=== PATIENT | male | born 1935 | race Caucasian/White ===

== ENCOUNTER 2016-12-23 12:37 | Inpatient (IN) | payer MEDICARE, OTHER ==
[~2016-12-23] VITALS: Ht 188 cm; Wt 149.6 kg
[~2016-12-23 12:37] MED LIST: ALLO300T PO; AMIO200T42 PO; AMOX1TAB61 PO; AMOX1TAB64 PO; APIX5TAB PO; ASPI-496 PO; ATOR80TA PO; ATOR80TA75 PO; CA C1TAB39 PO; CARV12.52 PO; CARV3.122 PO; CARV6.252 PO; CHOL40002 PO; CIPR500T8 PO; CLIN300C3 PO; FLUO20CA19 PO; FURO20TA3 PO; FURO40TA6 PO; INSU100C5 SQ-INSULIN; INSU100I13 SQ; INSU100I18 SQ; INSU100I18 SQ-INSULIN; INSU100I28 SQ-INSULIN; INSU100I29 SQ-INSULIN; INSU100V5 SQ-INSULIN; INSU100V8 SQ; IRBE150T49 PO; LEVO200T23 PO; LEVO200T5 PO; LOSA50TA2 PO; MAGNESIUM PO; MULT1TAB13 PO; MUPI22OI2 TP; NOVALOG SQ; OMEG1CAP12 PO; OMEP-110 PO; OMEP20TA62 PO; PREG100C PO; PREG50CA PO; REPA2TAB PO; REPA2TAB7 PO; RISP0.5T18 PO; SENN1TAB7 PO; SULF1TAB23 PO; SULF1TAB24 PO; SULF1TAB3 PO; TRIA15CR3 TP; VENL37.58 PO; VITA150T PO; VITAMIN C PO; WARF5TAB PO; WARF7.5T PO; ZINC PO
[2016-12-23] MEDS ORDERED: REPA2TAB PO (13:00)
[2016-12-23] MEDS ORDERED: APIX5TAB PO (13:00)
[2016-12-23] MEDS ORDERED: CHOL5000 PO (13:00)
[2016-12-23] MEDS ORDERED: ATOR40TA PO (13:00)
[2016-12-23] MEDS ORDERED: TEMA7.5C PO (13:00)
[2016-12-23] MEDS ORDERED: MULT-717 PO (13:00)
[2016-12-23] MEDS ORDERED: PREG200C PO (13:00)
[2016-12-23] MEDS ORDERED: PROP10TA PO (13:00)
[2016-12-23] MEDS ORDERED: [UNRECOGNIZED DRUG - CODE] PO (13:00)
[2016-12-23] MEDS ORDERED: SODIUM CHLORIDE FLUSH 10ML SYR IVF ONE (13:30)
[2016-12-23 13:59] LABS: BLOOD UREA NITROGEN 14 mg/dL (7-18)
[2016-12-23 14:19] LABS: ASPARTATE AMINO TRANSFERASE 22 U/L (15-37)
[2016-12-23] MEDS ORDERED: SODIUM CHLORIDE FLUSH 10ML SYR IVF PRN (15:00)
[2016-12-23] MEDS ORDERED: DEXTROSE 4 GM TAB.CHEW PO PRN (16:00)
[2016-12-23] MEDS ORDERED: ACETAMINOPHEN 325 MG TABLET PO PRN (16:00)
[2016-12-23] MEDS ORDERED: DOCUSATE 100 MG CAPSULE PO PRN (16:00)
[2016-12-23] MEDS ORDERED: DEXTROSE 50%, 50ML SYRINGE IVPush PRN (16:00)
[2016-12-23] MEDS ORDERED: ENALAPRILAT 1.25 MG/ML, 2ML IVPush PRN (16:00)
[2016-12-23] MEDS ORDERED: POLYETHYLENE GLYCOL 17 GM PACKET PO PRN (16:00)
[2016-12-23] MEDS ORDERED: BISACODYL 10 MG SUPP PR PRN (16:00)
[2016-12-23] MEDS ORDERED: NITROGLYCERIN 0.4 MG BOTTLE (25 TABS) SL PRN (16:00)
[2016-12-23] MEDS ORDERED: NITROGLYCERIN 0.4 MG/SPRAY SL PRN (16:00)
[2016-12-23] MEDS: INSULIN REGULAR 100 UNITS/ML, 3ML VIAL SQ-INSULIN SCH ×2 (16:00→21:00)
[2016-12-23] MEDS ORDERED: GLUCAGON 1 MG IM PRN (16:00)
[2016-12-23] MEDS: PROPRANOLOL 10 MG TABLET PO SCH ×2 (16:00→21:34)
[2016-12-23] MEDS ORDERED: ONDANSETRON 2MG/ML, 2ML IVP PRN (16:00)
[2016-12-23] MEDS ORDERED: ONDANSETRON ODT 4 MG PO PRN (16:00)
[2016-12-23] MEDS: INSULIN DETEMIR 100 UNITS/ML, PEN SQ-INSULIN SCH (17:00)
[2016-12-23 20:12] LABS: IS PT STATUS REG ER OR PRE ER? NO
[2016-12-23] MEDS ORDERED: ZINC 50 MG PO SCH (21:00)
[2016-12-23] MEDS ORDERED: CARVEDILOL 6.25 MG TABLET PO SCH ×2 (21:00)
[2016-12-23] MEDS: CHOLECALCIFEROL 1,000 UNIT TABLET PO SCH (21:00)
[2016-12-23] MEDS ORDERED: CHOLECALCIFEROL 10000 UNIT PO SCH (21:00)
[2016-12-23] MEDS: TEMAZEPAM 7.5 MG HOMEMEDPO SCH (21:00)
[2016-12-23 21:29] VITALS: BP 176/81
[2016-12-23] MEDS: MULTIVITAMINS/MINERALS TABLET PO SCH (21:35)
[2016-12-23] MEDS: REPAGLINIDE 2 MG TABLET PO SCH (21:35)
[2016-12-23] MEDS: ASCORBIC ACID 500 MG TABLET PO SCH (21:35)
[2016-12-23] MEDS: MULTIVITS,STRESS FORMULA 1 TABLET PO SCH (21:36)
[2016-12-23] MEDS: ATORVASTATIN 40 MG TABLET PO SCH (21:36)
[2016-12-23] MEDS: PREGABALIN 200 MG CAPSULE PO SCH (21:36)
[2016-12-23] MEDS: APIXABAN 5 MG TABLET PO SCH (21:36)
[2016-12-23] MEDS: SODIUM CHLORIDE FLUSH 10ML SYR IVF SCH (21:37)
[2016-12-23] MEDS ORDERED: INSULIN DETEMIR 100 UNITS/ML, PEN SQ-INSULIN SCH (22:30)
[2016-12-24 02:00] VITALS: BP 165/80
[2016-12-24 02:43] LABS: BLOOD UREA NITROGEN 15 mg/dL (7-18)
[2016-12-24 02:48] LABS: IS PT STATUS REG ER OR PRE ER? NO
[2016-12-24] MEDS: LEVOTHYROXINE 200 MCG TABLET PO SCH (05:34)
[2016-12-24] MEDS: INSULIN REGULAR 100 UNITS/ML, 3ML VIAL SQ-INSULIN SCH ×4 (07:00→21:00)
[2016-12-24] MEDS ORDERED: REGADENOSON 0.4 MG/5 ML SYRINGE ONE (07:49)
[2016-12-24 08:00] VITALS: BP 144/79
[2016-12-24] MEDS: INSULIN DETEMIR 100 UNITS/ML, PEN SQ-INSULIN SCH ×3 (08:00→16:42)
[2016-12-24] MEDS: PREGABALIN 200 MG CAPSULE PO SCH ×2 (09:00→20:22)
[2016-12-24] MEDS: MAGNESIUM OXIDE 400 MG TABLET PO SCH (10:30)
[2016-12-24] MEDS: OMEGA-3/FISH OIL CAPSULE PO SCH (10:30)
[2016-12-24] MEDS: APIXABAN 5 MG TABLET PO SCH ×2 (10:30→20:22)
[2016-12-24] MEDS: REPAGLINIDE 2 MG TABLET PO SCH ×2 (10:30→16:52)
[2016-12-24] MEDS: ALLOPURINOL 300 MG TABLET PO SCH (10:30)
[2016-12-24] MEDS: ASPIRIN 81 MG TABLET EC PO SCH (10:30)
[2016-12-24] MEDS: AMIODARONE 200 MG TABLET PO SCH (10:31)
[2016-12-24] MEDS: SODIUM CHLORIDE FLUSH 10ML SYR IVF SCH ×2 (10:31→20:23)
[2016-12-24 12:17] VITALS: BP 129/52
[2016-12-24 12:19] LABS: IS PT STATUS REG ER OR PRE ER? NO
[2016-12-24] MEDS ORDERED: INSULIN REGULAR 100 UNITS/ML, 3ML VIAL SQ-INSULIN ONE ×2 (12:30→17:00)
[2016-12-24] MEDS ORDERED: INSULIN DETEMIR 100 UNITS/ML, PEN SQ-INSULIN ONE ×3 (12:30→21:00)
[2016-12-24] MEDS ORDERED: SODIUM CHLORIDE 0.9%, 500ML IVBOLUS ONE (16:00)
[2016-12-24 20:00] VITALS: BP 172/77
[2016-12-24] MEDS: MULTIVITS,STRESS FORMULA 1 TABLET PO SCH (20:22)
[2016-12-24] MEDS: ASCORBIC ACID 500 MG TABLET PO SCH (20:22)
[2016-12-24] MEDS: CHOLECALCIFEROL 1,000 UNIT TABLET PO SCH (20:23)
[2016-12-24] MEDS: TEMAZEPAM 7.5 MG HOMEMEDPO SCH (20:23)
[2016-12-24] MEDS: ATORVASTATIN 40 MG TABLET PO SCH (20:23)
[2016-12-24] MEDS: MULTIVITAMINS/MINERALS TABLET PO SCH (20:23)
[2016-12-25 01:27] VITALS: BP 150/72
[2016-12-25] MEDS: INSULIN REGULAR 100 UNITS/ML, 3ML VIAL SQ-INSULIN SCH ×3 (07:00→16:00)
[2016-12-25] MEDS: REPAGLINIDE 2 MG TABLET PO SCH ×2 (07:30→16:30)
[2016-12-25] MEDS: PREGABALIN 200 MG CAPSULE PO SCH (07:54)
[2016-12-25] MEDS: APIXABAN 5 MG TABLET PO SCH (07:54)
[2016-12-25] MEDS: AMIODARONE 200 MG TABLET PO SCH (07:54)
[2016-12-25] MEDS: ALLOPURINOL 300 MG TABLET PO SCH (07:54)
[2016-12-25] MEDS: SODIUM CHLORIDE FLUSH 10ML SYR IVF SCH (07:56)
[2016-12-25] MEDS: LEVOTHYROXINE 200 MCG TABLET PO SCH (07:56)
[2016-12-25] MEDS: ASPIRIN 81 MG TABLET EC PO SCH (07:57)
[2016-12-25] MEDS: MAGNESIUM OXIDE 400 MG TABLET PO SCH (07:57)
[2016-12-25] MEDS: OMEGA-3/FISH OIL CAPSULE PO SCH (07:58)
[2016-12-25] MEDS: INSULIN DETEMIR 100 UNITS/ML, PEN SQ-INSULIN SCH ×3 (08:00→17:00)
[2016-12-25 10:35] VITALS: BP 171/87
[2016-12-25] MEDS ORDERED: INSU100I28 SQ-INSULIN (12:44)
[2016-12-25 15:02] VITALS: BP 155/83
== END 2016-12-25 18:00 | disposition home or self-care (01) | DRG 292 ==
LOC: ED 14:50 → EDIP 14:56 → 5SO 18:16
PROVIDERS: ADMIT Family Medicine; ATTEND Family Medicine
PROC: 5A09357 Assistance with Respiratory Ventilation, Less than 24 Consecutive Hours, Continuous Positive Airway Pressure (ICD-10-PCS; principal; 2016-12-24)
DX: I13.0 Hypertensive heart and chronic kidney disease with heart failure and stage 1 through stage 4 chronic kidney disease, or unspecified chronic kidney disease (principal); L97.909 Non-pressure chronic ulcer of unspecified part of unspecified lower leg with unspecified severity; I47.2 Ventricular tachycardia; E11.649 Type 2 diabetes mellitus with hypoglycemia without coma; I25.110 Atherosclerotic heart disease of native coronary artery with unstable angina pectoris; R07.9 Chest pain, unspecified; E11.22 Type 2 diabetes mellitus with diabetic chronic kidney disease; N18.9 Chronic kidney disease, unspecified; I83.009 Varicose veins of unspecified lower extremity with ulcer of unspecified site; E78.5 Hyperlipidemia, unspecified; G47.33 Obstructive sleep apnea (adult) (pediatric); M10.9 Gout, unspecified; G89.29 Other chronic pain; E03.9 Hypothyroidism, unspecified; I48.0 Paroxysmal atrial fibrillation; Z79.4 Long term (current) use of insulin; J44.9 Chronic obstructive pulmonary disease, unspecified; I50.9 Heart failure, unspecified; Z66 Do not resuscitate; Z86.14 Personal history of Methicillin resistant Staphylococcus aureus infection; Z87.891 Personal history of nicotine dependence; I25.2 Old myocardial infarction; Z95.0 Presence of cardiac pacemaker; Z95.1 Presence of aortocoronary bypass graft; Z83.3 Family history of diabetes mellitus; Z82.49 Family history of ischemic heart disease and other diseases of the circulatory system
CPT/HCPCS: 36415; 71010; 78452; 80048; 80053; 82962; 83880; 84484; 85025; 85610; 85730; 93005; 93017; 94660; J1815; J2785; A9502; C9898; J7040

== ENCOUNTER 2017-05-27 20:24 | Emergency (ER) | payer MEDICARE, OTHER ==
[~2017-05-27] VITALS: Ht 188 cm; Wt 147.4 kg
[~2017-05-27 20:24] MED LIST changes: +ATOR-2 PO; +ATOR40TA PO; -ATOR80TA75 PO; +CHOL5000 PO; -LEVO200T23 PO; +LEVO200T42 PO; +MULT-717 PO; -OMEG1CAP12 PO; +OMEG1CAP23 PO; +PREG200C PO; +PROP10TA PO; -RISP0.5T18 PO; +RISP0.5T24 PO; +SULF-169 PO; -SULF1TAB3 PO; +TEMA7.5C PO; +[UNRECOGNIZED DRUG - CODE] PO
[2017-05-27] MEDS ORDERED: SODIUM CHLORIDE 0.9% 1,000ML IVBOLUS ONE (21:30)
[2017-05-27 21:31] LABS: HEMATOCRIT 35.7 % (39.2-51.8); HEMOGLOBIN 11.6 g/dL (13.7-18.0)
[2017-05-27 21:45] LABS: BLOOD UREA NITROGEN 35 mg/dL (7-18)
[2017-05-27 21:55] LABS: IS PT STATUS REG ER OR PRE ER? YES
[2017-05-28 00:30] VITALS: BP 149/59
== END 2017-05-28 01:06 | disposition home or self-care (01) ==
LOC: MERGE 20:24 → ED 05-28 00:51
DX: I87.2 Venous insufficiency (chronic) (peripheral) (principal); I83.11 Varicose veins of right lower extremity with inflammation; I83.12 Varicose veins of left lower extremity with inflammation; I10 Essential (primary) hypertension; E11.9 Type 2 diabetes mellitus without complications; J44.9 Chronic obstructive pulmonary disease, unspecified; E78.5 Hyperlipidemia, unspecified; K21.9 Gastro-esophageal reflux disease without esophagitis; I25.10 Atherosclerotic heart disease of native coronary artery without angina pectoris
CPT/HCPCS: 36415; 71010; 80048; 81003; 82040; 84443; 84484; 85025; 93005; 96360; 99285; J7030

== ENCOUNTER 2017-06-30 16:17 | Observation (INO) | payer MEDICARE, OTHER ==
[~2017-06-30] VITALS: Ht 188 cm; Wt 156.1 kg
[2017-06-30] MEDS ORDERED: SODIUM CHLORIDE FLUSH 10ML SYR IVF ONE (17:00)
[2017-06-30] MEDS ORDERED: ACETAMINOPHEN 325 MG TABLET PO ONE (17:00)
[2017-06-30] MEDS ORDERED: ACETAMINOPHEN 325 MG TABLET ONE (17:01)
[2017-06-30 17:19] LABS: HEMATOCRIT 38.5 % (39.2-51.8); HEMOGLOBIN 12.6 g/dL (13.7-18.0); WHITE BLOOD COUNT 6.8 x10^3/uL (3.4-10)
[2017-06-30 17:29] LABS: BLOOD UREA NITROGEN 39 mg/dL (7-18)
[2017-06-30 17:34] LABS: ASPARTATE AMINO TRANSFERASE 18 U/L (15-37); IS PT STATUS REG ER OR PRE ER? YES
[2017-06-30] MEDS ORDERED: SODIUM CHLORIDE 0.9%, 500ML IVBOLUS ONE (18:00)
[2017-06-30] MEDS ORDERED: INSULIN LANTIS SQ-INSULIN (18:32)
[2017-06-30] MEDS ORDERED: INSULIN NOVALOG SQ-INSULIN (18:32)
[2017-06-30] MEDS ORDERED: ACETAMINOPHEN 325 MG TABLET PO PRN (21:00)
[2017-06-30] MEDS ORDERED: DOCUSATE 100 MG CAPSULE PO PRN (21:00)
[2017-06-30] MEDS ORDERED: HEPARIN 5,000 UNITS/ML, 1ML SQ SCH (21:00)
[2017-06-30] MEDS ORDERED: hydrALAzine 20 MG/ML, 1ML IVPush PRN (21:00)
[2017-06-30] MEDS ORDERED: HYDROcodone/APAP 5/325 TABLET PO PRN (21:00)
[2017-06-30] MEDS ORDERED: ONDANSETRON ODT 4 MG PO PRN (21:00)
[2017-06-30] MEDS ORDERED: BISACODYL 10 MG SUPP PR PRN (21:00)
[2017-06-30] MEDS ORDERED: MAGNESIUM OXIDE 400 MG TABLET PO PRN (21:30)
[2017-06-30] MEDS: SODIUM CHLORIDE 0.9% 1,000 ML IV SCH (21:49)
[2017-06-30 21:59] VITALS: BP 130/77
[2017-07-01 01:29] VITALS: BP 120/72
[2017-07-01 01:30] VITALS: BP 120/72
[2017-07-01 01:33] VITALS: BP 121/70
[2017-07-01 06:00] LABS: HEMATOCRIT 36.7 % (39.2-51.8); HEMOGLOBIN 12.2 g/dL (13.7-18.0); WHITE BLOOD COUNT 5.2 x10^3/uL (3.4-10)
[2017-07-01 06:40] LABS: ASPARTATE AMINO TRANSFERASE 18 U/L (15-37); BLOOD UREA NITROGEN 35 mg/dL (7-18)
[2017-07-01] MEDS ORDERED: INSULIN DETEMIR 100 UNITS/ML, PEN SQ-INSULIN SCH ×2 (07:00)
[2017-07-01] MEDS ORDERED: REPAGLINIDE 2 MG TABLET PO SCH ×2 (07:00→10:00)
[2017-07-01] MEDS ORDERED: INSULIN ASPART 100 UNITS/ML, PEN SQ-INSULIN SCH ×4 (07:00→11:00)
[2017-07-01] MEDS: APIXABAN 5 MG TABLET PO SCH ×2 (07:00→09:00)
[2017-07-01 08:34] VITALS: BP 129/75
[2017-07-01] MEDS ORDERED: OMEGA-3/FISH OIL CAPSULE PO SCH (09:00)
[2017-07-01] MEDS ORDERED: ASPIRIN 81 MG TABLET EC PO SCH (09:00)
[2017-07-01] MEDS ORDERED: LEVOTHYROXINE 200 MCG TABLET PO SCH (09:00)
[2017-07-01] MEDS ORDERED: ALLOPURINOL 300 MG TABLET PO SCH (09:00)
[2017-07-01] MEDS ORDERED: AMIODARONE 200 MG TABLET PO SCH (09:00)
[2017-07-01] MEDS: INSULIN DETEMIR 100 UNITS/ML, PEN SQ-INSULIN SCH ×2 (09:16→11:00)
[2017-07-01] MEDS: SODIUM CHLORIDE 0.9% 1,000 ML IV SCH (09:17)
[2017-07-01 12:52] VITALS: BP 164/80
[2017-07-01] MEDS ORDERED: INSULIN NOVALOG SQ-INSULIN (14:27)
[2017-07-01] MEDS ORDERED: INSULIN LANTIS SQ-INSULIN (14:27)
[2017-07-01] MEDS ORDERED: CHOLECALCIFEROL 10000 UNIT PO SCH (21:00)
[2017-07-01] MEDS ORDERED: PREGABALIN 200 MG CAPSULE PO SCH (21:00)
[2017-07-01] MEDS ORDERED: ATORVASTATIN 40 MG TABLET PO SCH (21:00)
[2017-07-01] MEDS ORDERED: TEMPLATE NON-FORMULARY MED. (Vitamin B Complex & Vit C No.4 (Super B Complex) 1 TAB) PO SCH (21:00)
[2017-07-01] MEDS ORDERED: ASCORBIC ACID 500 MG TABLET PO SCH (21:00)
[2017-07-01] MEDS ORDERED: ZINC 50 MG PO SCH (21:00)
[2017-07-01] MEDS ORDERED: MULTIVITAMIN 1 TABLET PO SCH (21:00)
[2017-07-01] MEDS ORDERED: TEMAZEPAM 15 MG CAPSULE PO SCH (21:00)
== END 2017-07-01 18:22 | disposition home or self-care (01) ==
LOC: ED 18:32 → INTOOBSV 18:33 → EDIP 18:33 → ED 19:10 → 4WST 21:21
PROVIDERS: ADMIT Hospitalist; ATTEND Hospitalist
DX: I95.9 Hypotension, unspecified (principal); E11.22 Type 2 diabetes mellitus with diabetic chronic kidney disease; I13.0 Hypertensive heart and chronic kidney disease with heart failure and stage 1 through stage 4 chronic kidney disease, or unspecified chronic kidney disease; I50.9 Heart failure, unspecified; I25.810 Atherosclerosis of coronary artery bypass graft(s) without angina pectoris; N18.3 Chronic kidney disease, stage 3 (moderate); E03.9 Hypothyroidism, unspecified; I48.0 Paroxysmal atrial fibrillation; J44.9 Chronic obstructive pulmonary disease, unspecified; I87.2 Venous insufficiency (chronic) (peripheral); N17.9 Acute kidney failure, unspecified; M10.9 Gout, unspecified; R42 Dizziness and giddiness; I87.8 Other specified disorders of veins; E11.622 Type 2 diabetes mellitus with other skin ulcer; E66.9 Obesity, unspecified; E78.5 Hyperlipidemia, unspecified; E86.0 Dehydration; I83.009 Varicose veins of unspecified lower extremity with ulcer of unspecified site; K21.9 Gastro-esophageal reflux disease without esophagitis; L97.909 Non-pressure chronic ulcer of unspecified part of unspecified lower leg with unspecified severity; Z86.14 Personal history of Methicillin resistant Staphylococcus aureus infection; Z95.1 Presence of aortocoronary bypass graft; Z87.891 Personal history of nicotine dependence; Z82.49 Family history of ischemic heart disease and other diseases of the circulatory system; Z80.9 Family history of malignant neoplasm, unspecified; Z83.3 Family history of diabetes mellitus
CPT/HCPCS: 36415; 71010; 80053; 81003; 82962; 83605; 83880; 84145; 84484; 85025; 85610; 85730; 87040; 93005; 96360; 96361; 96372; 97162; 97166; 99291; G0378; G8978; G8979; G8980; J1815; J7030; J7040

== ENCOUNTER 2017-09-20 22:02 | Emergency (ER) | payer MEDICARE, OTHER ==
[~2017-09-20] VITALS: Ht 188 cm; Wt 149.0 kg
[~2017-09-20 22:02] MED LIST changes: +ASCO-232 PO; +INSULIN LANTIS SQ-INSULIN; +INSULIN NOVALOG SQ-INSULIN; -[UNRECOGNIZED DRUG - CODE] PO
[2017-09-20] MEDS ORDERED: SODIUM CHLORIDE 0.9% 1,000 ML IV ONE (22:09)
[2017-09-20] MEDS ORDERED: SODIUM CHLORIDE FLUSH 10ML SYR IVF ONE (22:30)
[2017-09-20] MEDS ORDERED: PROP10TA PO (22:42)
[2017-09-20 23:29] LABS: BASOPHILS # (AUTO) 0.05 x10^3/uL (0-0.1); BASOPHILS % (AUTO) 1 % (0-1); EOSINOPHILS # (AUTO) 0.23 x10^3/uL (0-0.4); EOSINOPHILS % (AUTO) 4 % (1-7); LYMPHOCYTES # (AUTO) 1.09 x10^3/uL (1-3.4); LYMPHOCYTES % (AUTO) 17 % (22-44); MD NO; MEAN CORPUSCULAR HEMOGLOBIN 29.7 pg (27.5-34.5); MEAN CORPUSCULAR HGB CONC 33.6 g/dL (33.2-36.2); MEAN CORPUSCULAR VOLUME 88.3 fL (81-97); MEAN PLATELET VOLUME 9.1 fL (7.4-10.4); MONOCYTES # (AUTO) 0.49 x10^3/uL (0.2-0.8); MONOCYTES % (AUTO) 8 % (2-9); NEUTROPHILS # (AUTO) 4.63 x10^3/uL (1.8-6.8); NEUTROPHILS % (AUTO) 72 % (42-75); PLATELET COUNT 198 x10^3/uL (130-400); RED BLOOD COUNT 5.15 x10^6/uL (4.38-5.82); RED CELL DISTRIBUTION WIDTH 18.9 % (9.4-14.8)
[2017-09-20 23:38] LABS: ALANINE AMINOTRANSFERASE 22 U/L (12-78); ALBUMIN 3.7 g/dL (3.4-5.0); ANION GAP 6 mmol/L (5-15); CALCIUM 9.3 mg/dL (8.5-10.1); CHLORIDE 103 mmol/L (98-107); CREATININE 1.79 mg/dL (0.7-1.3)
[2017-09-20 23:43] LABS: ALKALINE PHOSPHATASE 109 U/L (45-117); BILIRUBIN,TOTAL 0.6 mg/dL (0.2-1.0); TOTAL PROTEIN 7.9 g/dL (6.4-8.2); TROPONIN I < 0.015 ng/mL (0.000-0.045)
[2017-09-20 23:56] LABS: INTERNATIONAL NORMALIZED RATIO 0.97 (0.93-1.1); PROTHROMBIN TIME 10.1 Seconds (9.6-11.5)
[2017-09-21 01:07] VITALS: BP 158/82
== END 2017-09-21 01:17 | disposition home or self-care (01) ==
LOC: ED 23:18
DX: K80.70 Calculus of gallbladder and bile duct without cholecystitis without obstruction (principal); E03.9 Hypothyroidism, unspecified; E78.5 Hyperlipidemia, unspecified; F17.200 Nicotine dependence, unspecified, uncomplicated; J44.9 Chronic obstructive pulmonary disease, unspecified; I48.91 Unspecified atrial fibrillation; I50.9 Heart failure, unspecified; K21.9 Gastro-esophageal reflux disease without esophagitis; I25.10 Atherosclerotic heart disease of native coronary artery without angina pectoris; I11.0 Hypertensive heart disease with heart failure; E11.40 Type 2 diabetes mellitus with diabetic neuropathy, unspecified; Z95.0 Presence of cardiac pacemaker; Z95.1 Presence of aortocoronary bypass graft
CPT/HCPCS: 36415; 70450; 71045; 74176; 80053; 84484; 85025; 85610; 85730; 93005; 96360; 99285; J7030

== ENCOUNTER 2018-02-04 23:20 | Emergency (ER) | payer MEDICARE, OTHER ==
[~2018-02-04] VITALS: Ht 188 cm; Wt 140.0 kg
[~2018-02-04 23:20] MED LIST changes: +FINA5TAB4 PO; +GABA300C10 PO
[2018-02-05] MEDS ORDERED: SODIUM CHLORIDE 0.9% 1,000ML IVBOLUS ONE (01:00)
[2018-02-05] MEDS ORDERED: AMIODARONE 200 MG TABLET PO ONE (01:00)
[2018-02-05] MEDS ORDERED: GABAPENTIN 300 MG CAPSULE PO ONE (01:00)
[2018-02-05] MEDS ORDERED: CARVEDILOL 12.5 MG TABLET PO ONE (01:00)
[2018-02-05] MEDS ORDERED: APIXABAN 5 MG TABLET PO ONE (01:00)
[2018-02-05] MEDS ORDERED: APIXABAN 5 MG TABLET ONE (01:04)
[2018-02-05] MEDS ORDERED: AMIODARONE 200 MG TABLET ONE (01:05)
[2018-02-05 01:09] LABS: PH, VENOUS 7.386 pH (7.320-7.420)
[2018-02-05 01:12] LABS: BASOPHILS # (AUTO) 0.04 x10^3/uL (0-0.1); BASOPHILS % (AUTO) 1 % (0-1); EOSINOPHILS % (AUTO) 7 % (1-7); LYMPHOCYTES % (AUTO) 13 % (22-44); MD NO; MEAN CORPUSCULAR HEMOGLOBIN 31.7 pg (27.5-34.5); MEAN CORPUSCULAR VOLUME 95.9 fL (81-97); MEAN PLATELET VOLUME 8.3 fL (7.4-10.4); MONOCYTES # (AUTO) 0.68 x10^3/uL (0.2-0.8); MONOCYTES % (AUTO) 9 % (2-9); NEUTROPHILS # (AUTO) 5.29 x10^3/uL (1.8-6.8); NEUTROPHILS % (AUTO) 71 % (42-75); PLATELET COUNT 190 x10^3/uL (130-400)
[2018-02-05] MEDS ORDERED: ATORVASTATIN 40 MG TABLET PO ONE (01:20)
[2018-02-05 01:21] LABS: ALBUMIN 3.1 g/dL (3.4-5.0); ANION GAP 5 mmol/L (5-15); CALCIUM 8.9 mg/dL (8.5-10.1); CHLORIDE 104 mmol/L (98-107); CREATININE 1.36 mg/dL (0.7-1.3)
[2018-02-05 01:40] LABS: ACETONE, SERUM Trace (10mg/dL) mg/dL (Negative)
[2018-02-05 01:44] VITALS: BP 188/78
[2018-02-05] MEDS ORDERED: INSULIN GLARGINE 100 UNITS/ML, PEN SQ-INSULIN ONE (02:00)
[2018-02-05] MEDS ORDERED: BACITRACIN ZINC OINT 500U/GM, 0.9 GM ONE (02:17)
== END 2018-02-05 02:43 | disposition home or self-care (01) ==
LOC: ED 23:59
DX: E86.0 Dehydration (principal); Z76.0 Encounter for issue of repeat prescription; E11.65 Type 2 diabetes mellitus with hyperglycemia; I10 Essential (primary) hypertension; Z87.891 Personal history of nicotine dependence; S91.205A Unspecified open wound of left lesser toe(s) with damage to nail, initial encounter; X58.XXXA Exposure to other specified factors, initial encounter; Y93.89 Activity, other specified; Y99.8 Other external cause status; Y92.89 Other specified places as the place of occurrence of the external cause
CPT/HCPCS: 36415; 80048; 82010; 82040; 82803; 82962; 85025; 96372; 99284; J1815

== ENCOUNTER 2018-03-30 02:36 | Inpatient (IN) | payer MEDICARE, OTHER ==
[~2018-03-30] VITALS: Ht 182.9 cm; Wt 148.0 kg
[2018-03-30] MEDS ORDERED: SODIUM CHLORIDE FLUSH 10ML SYR IVF ONE (03:00)
[2018-03-30] MEDS ORDERED: ACETAMINOPHEN 325 MG TABLET PO ONE (03:00)
[2018-03-30] MEDS ORDERED: ACETAMINOPHEN 325 MG TABLET ONE (03:00)
[2018-03-30 03:29] LABS: MICROSCOPIC AUTO
[2018-03-30 03:29] LABS: BASOPHILS # (AUTO) 0.03 x10^3/uL (0-0.1); BASOPHILS % (AUTO) 0 % (0-1); EOSINOPHILS # (AUTO) 0.42 x10^3/uL (0-0.4); EOSINOPHILS % (AUTO) 4 % (1-7); LYMPHOCYTES # (AUTO) 0.72 x10^3/uL (1-3.4); LYMPHOCYTES % (AUTO) 8 % (22-44); MD NO; MEAN CORPUSCULAR HEMOGLOBIN 30.9 pg (27.5-34.5); MEAN CORPUSCULAR HGB CONC 32.7 g/dL (33.2-36.2); MEAN CORPUSCULAR VOLUME 94.6 fL (81-97); MEAN PLATELET VOLUME 8.3 fL (7.4-10.4); MONOCYTES # (AUTO) 0.54 x10^3/uL (0.2-0.8); MONOCYTES % (AUTO) 6 % (2-9); NEUTROPHILS % (AUTO) 82 % (42-75); PLATELET COUNT 192 x10^3/uL (130-400); RED BLOOD COUNT 4.55 x10^6/uL (4.38-5.82); RED CELL DISTRIBUTION WIDTH 15.2 % (9.4-14.8)
[2018-03-30 03:31] LABS: CULTURE INDICATED? NO
[2018-03-30 03:40] LABS: INTERNATIONAL NORMALIZED RATIO 0.96 (0.93-1.1)
[2018-03-30 03:42] LABS: ALBUMIN 3.3 g/dL (3.4-5.0); ANION GAP 7 mmol/L (5-15); CALCIUM 9.3 mg/dL (8.5-10.1); CHLORIDE 102 mmol/L (98-107); CREATININE 1.21 mg/dL (0.7-1.3)
[2018-03-30 03:46] LABS: ALKALINE PHOSPHATASE 89 U/L (45-117); BILIRUBIN,TOTAL 0.7 mg/dL (0.2-1.0); TOTAL PROTEIN 7.5 g/dL (6.4-8.2); TROPONIN I < 0.015 ng/mL (0.000-0.045)
[2018-03-30 03:48] LABS: ALANINE AMINOTRANSFERASE 19 U/L (12-78)
[2018-03-30] MEDS ORDERED: AMPICILLIN/SULBACTAM 1,500 MG in SODIUM CHLORIDE 0.9% 50 ML IV ONE (04:00)
[2018-03-30] MEDS ORDERED: VANCOMYCIN PER PHARMACY MC PRN ×2 (04:00→06:30)
[2018-03-30] MEDS ORDERED: VANCOMYCIN 2,000 MG in SODIUM CHLORIDE 0.9% 500 ML IV ONE (04:30)
[2018-03-30] MEDS ORDERED: APIX5TAB PO (04:45)
[2018-03-30] MEDS ORDERED: CARV12.52 PO (04:45)
[2018-03-30] MEDS ORDERED: INSU100C5 SQ-INSULIN (04:45)
[2018-03-30] MEDS ORDERED: REPA2TAB PO (04:45)
[2018-03-30] MEDS ORDERED: INSU100V8 SQ (04:45)
[2018-03-30] MEDS ORDERED: DEXTROSE 4 GM TAB.CHEW PO PRN (05:00)
[2018-03-30] MEDS ORDERED: DEXTROSE 50%, 50ML SYRINGE IVPush PRN (05:00)
[2018-03-30] MEDS ORDERED: GLUCAGON 1 MG IM PRN (05:00)
[2018-03-30] MEDS ORDERED: LABETALOL 5MG/ML, 20ML IVPush PRN (05:00)
[2018-03-30] MEDS ORDERED: SENNA/DOCUSATE TABLET PO PRN (05:00)
[2018-03-30 05:18] VITALS: BP 103/63
[2018-03-30] MEDS ORDERED: MAGNESIUM OXIDE 400 MG TABLET PO PRN (05:30)
[2018-03-30] MEDS: LANTUS MC SCH ×3 (05:30→21:30)
[2018-03-30] MEDS: ACETAMINOPHEN 325 MG TABLET PO PRN ×2 (07:17→21:05)
[2018-03-30 07:33] VITALS: BP 119/70
[2018-03-30] MEDS: INSULIN LISPRO 100 UNITS/ML, PEN SQ-INSULIN SCH ×4 (07:33→20:56)
[2018-03-30] MEDS: INSULIN GLARGINE HUM REC ANLOG 35 UNIT SQ SCH ×2 (07:33→10:32)
[2018-03-30] MEDS: APIXABAN 5 MG TABLET PO SCH ×2 (07:57→20:53)
[2018-03-30] MEDS: ASPIRIN 81 MG TABLET CHEW PO SCH (07:57)
[2018-03-30] MEDS: AMIODARONE 200 MG TABLET PO SCH (07:57)
[2018-03-30] MEDS: CARVEDILOL 12.5 MG TABLET PO SCH ×2 (07:57→20:53)
[2018-03-30] MEDS: GABAPENTIN 300 MG CAPSULE PO SCH ×3 (07:57→20:52)
[2018-03-30] MEDS: ALLOPURINOL 300 MG TABLET PO SCH (07:57)
[2018-03-30] MEDS: LEVOTHYROXINE 200 MCG TABLET PO SCH (07:57)
[2018-03-30] MEDS: SODIUM CHLORIDE FLUSH 10ML SYR IVF SCH ×2 (07:59→20:52)
[2018-03-30] MEDS ORDERED: PHARMACOKINETIC MONITORING MC PRN (08:00)
[2018-03-30] MEDS ORDERED: SODIUM CHLORIDE 0.9% 1,000 ML IV SCH (08:00)
[2018-03-30] MEDS ORDERED: SODIUM CHLORIDE 0.9%, 500ML IVBOLUS ONE (08:00)
[2018-03-30] MEDS ORDERED: VANCOMYCIN 2,100 MG in SODIUM CHLORIDE 0.9% 500 ML IV SCH (08:00)
[2018-03-30] MEDS: SODIUM CHLORIDE 0.9% 1,000 ML IV SCH ×2 (08:07→16:42)
[2018-03-30] MEDS: AMPICILLIN/SULBACTAM 1,500 MG in SODIUM CHLORIDE 0.9% 50 ML IV SCH ×3 (10:51→22:57)
[2018-03-30 14:30] VITALS: BP 118/67
[2018-03-30] MEDS: INSULIN GLARGINE 100 UNITS/ML, PEN SQ-INSULIN SCH (16:48)
[2018-03-30] MEDS: ATORVASTATIN 40 MG TABLET PO SCH (20:52)
[2018-03-30] MEDS: TEMAZEPAM 7.5 MG HOMEMEDPO SCH (21:00)
[2018-03-30 21:49] VITALS: BP 148/82
[2018-03-31 00:51] VITALS: BP 133/71
[2018-03-31] MEDS: SODIUM CHLORIDE 0.9% 1,000 ML IV SCH (01:45)
[2018-03-31 04:29] LABS: ANION GAP 7 mmol/L (5-15); CHLORIDE 106 mmol/L (98-107); CREATININE 1.51 mg/dL (0.7-1.3)
[2018-03-31 04:30] LABS: BASOPHILS # (AUTO) 0.01 x10^3/uL (0-0.1); BASOPHILS % (AUTO) 0 % (0-1); EOSINOPHILS # (AUTO) 0.38 x10^3/uL (0-0.4); EOSINOPHILS % (AUTO) 5 % (1-7); LYMPHOCYTES # (AUTO) 1.11 x10^3/uL (1-3.4); LYMPHOCYTES % (AUTO) 14 % (22-44); MD NO; MEAN CORPUSCULAR HEMOGLOBIN 31.3 pg (27.5-34.5); MEAN CORPUSCULAR HGB CONC 32.7 g/dL (33.2-36.2); MEAN CORPUSCULAR VOLUME 95.4 fL (81-97); MEAN PLATELET VOLUME 9.3 fL (7.4-10.4); MONOCYTES # (AUTO) 0.68 x10^3/uL (0.2-0.8); MONOCYTES % (AUTO) 8 % (2-9); NEUTROPHILS # (AUTO) 5.95 x10^3/uL (1.8-6.8); NEUTROPHILS % (AUTO) 73 % (42-75); PLATELET COUNT 127 x10^3/uL (130-400); RED BLOOD COUNT 3.83 x10^6/uL (4.38-5.82); RED CELL DISTRIBUTION WIDTH 15.5 % (9.4-14.8)
[2018-03-31] MEDS: LANTUS MC SCH (05:06)
[2018-03-31] MEDS: AMPICILLIN/SULBACTAM 1,500 MG in SODIUM CHLORIDE 0.9% 50 ML IV SCH ×4 (05:06→22:40)
[2018-03-31] MEDS: INSULIN LISPRO 100 UNITS/ML, PEN SQ-INSULIN SCH ×4 (07:08→21:07)
[2018-03-31] MEDS: INSULIN GLARGINE 100 UNITS/ML, PEN SQ-INSULIN SCH ×2 (07:08→11:00)
[2018-03-31 07:13] VITALS: BP 147/75
[2018-03-31] MEDS ORDERED: SODIUM CHLORIDE 0.9% 1,000 ML IV SCH (08:07)
[2018-03-31] MEDS: GABAPENTIN 300 MG CAPSULE PO SCH ×3 (08:45→20:38)
[2018-03-31] MEDS: ALLOPURINOL 300 MG TABLET PO SCH (08:45)
[2018-03-31] MEDS: AMIODARONE 200 MG TABLET PO SCH (08:45)
[2018-03-31] MEDS: APIXABAN 5 MG TABLET PO SCH ×2 (08:45→20:38)
[2018-03-31] MEDS: CARVEDILOL 12.5 MG TABLET PO SCH ×2 (08:45→20:38)
[2018-03-31] MEDS: LEVOTHYROXINE 200 MCG TABLET PO SCH (08:45)
[2018-03-31] MEDS: ASPIRIN 81 MG TABLET CHEW PO SCH (08:45)
[2018-03-31] MEDS: SODIUM CHLORIDE FLUSH 10ML SYR IVF SCH ×2 (08:46→21:05)
[2018-03-31 14:03] VITALS: BP 151/79
[2018-03-31] MEDS ORDERED: VANCOMYCIN 2,100 MG in SODIUM CHLORIDE 0.9% 500 ML IV SCH (17:00)
[2018-03-31 19:39] VITALS: BP 147/75
[2018-03-31] MEDS: ATORVASTATIN 40 MG TABLET PO SCH (20:38)
[2018-03-31] MEDS: TEMAZEPAM 7.5 MG HOMEMEDPO SCH (21:00)
[2018-03-31] MEDS: ACETAMINOPHEN 325 MG TABLET PO PRN (21:05)
[2018-04-01 01:08] VITALS: BP 149/71
[2018-04-01] MEDS: AMPICILLIN/SULBACTAM 1,500 MG in SODIUM CHLORIDE 0.9% 50 ML IV SCH (04:15)
[2018-04-01] MEDS: INSULIN LISPRO 100 UNITS/ML, PEN SQ-INSULIN SCH ×2 (07:00→11:20)
[2018-04-01 07:45] VITALS: BP 146/75
[2018-04-01] MEDS: SODIUM CHLORIDE FLUSH 10ML SYR IVF SCH (08:07)
[2018-04-01] MEDS: CARVEDILOL 12.5 MG TABLET PO SCH (08:08)
[2018-04-01] MEDS: LEVOTHYROXINE 200 MCG TABLET PO SCH (08:08)
[2018-04-01] MEDS: ALLOPURINOL 300 MG TABLET PO SCH (08:08)
[2018-04-01] MEDS: GABAPENTIN 300 MG CAPSULE PO SCH (08:08)
[2018-04-01] MEDS: APIXABAN 5 MG TABLET PO SCH (08:08)
[2018-04-01] MEDS: AMIODARONE 200 MG TABLET PO SCH (08:08)
[2018-04-01] MEDS: ASPIRIN 81 MG TABLET CHEW PO SCH (08:09)
[2018-04-01] MEDS ORDERED: SULFAMETH./TRIMETHOPRIM DS 800MG/160MG TABLET PO SCH (09:00)
[2018-04-01] MEDS ORDERED: SULF-169 PO (11:14)
[2018-04-01 13:29] VITALS: BP 159/78
== END 2018-04-01 16:26 | disposition home or self-care (01) | DRG 603 ==
LOC: ED 03:05 → EDIP 04:06 → INTOOBSV 04:06 → 3NW 05:13 → OBSVTOIN 10:22
PROVIDERS: ADMIT Family Medicine; ATTEND Family Medicine
PROC: 5A09357 Assistance with Respiratory Ventilation, Less than 24 Consecutive Hours, Continuous Positive Airway Pressure (ICD-10-PCS; principal; 2018-04-01)
DX: L03.116 Cellulitis of left lower limb (principal); Z68.41 Body mass index [BMI] 40.0-44.9, adult; N17.9 Acute kidney failure, unspecified; E11.40 Type 2 diabetes mellitus with diabetic neuropathy, unspecified; E89.0 Postprocedural hypothyroidism; E11.51 Type 2 diabetes mellitus with diabetic peripheral angiopathy without gangrene; E66.9 Obesity, unspecified; E11.65 Type 2 diabetes mellitus with hyperglycemia; E78.5 Hyperlipidemia, unspecified; G47.33 Obstructive sleep apnea (adult) (pediatric); I11.0 Hypertensive heart disease with heart failure; Z85.828 Personal history of other malignant neoplasm of skin; Z82.49 Family history of ischemic heart disease and other diseases of the circulatory system; I25.10 Atherosclerotic heart disease of native coronary artery without angina pectoris; I48.91 Unspecified atrial fibrillation; I50.9 Heart failure, unspecified; I87.2 Venous insufficiency (chronic) (peripheral); J44.9 Chronic obstructive pulmonary disease, unspecified; K21.9 Gastro-esophageal reflux disease without esophagitis; L03.115 Cellulitis of right lower limb; Z79.01 Long term (current) use of anticoagulants; R09.02 Hypoxemia; Z79.4 Long term (current) use of insulin; Z86.14 Personal history of Methicillin resistant Staphylococcus aureus infection; Z87.891 Personal history of nicotine dependence; Z86.72 Personal history of thrombophlebitis; Z95.0 Presence of cardiac pacemaker; Z95.1 Presence of aortocoronary bypass graft
CPT/HCPCS: 36415; 71045; 80048; 80053; 81001; 82962; 83605; 83880; 84145; 84484; 85025; 85610; 85730; 87040; 93005; 94660; 96365; 99285; G0378; J3370; J0295; J1815; J7030; J7040

== ENCOUNTER → 2018-04-18 | Outpatient (CLI) | payer MEDICARE, OTHER | END | disposition home or self-care (01) | LOC: CVU 09:52 | PROVIDERS: ATTEND Physician Assistant Medical | DX: I11.9 Hypertensive heart disease without heart failure (principal); I08.2 Rheumatic disorders of both aortic and tricuspid valves; I48.91 Unspecified atrial fibrillation; I25.10 Atherosclerotic heart disease of native coronary artery without angina pectoris; E78.5 Hyperlipidemia, unspecified; Z87.891 Personal history of nicotine dependence | CPT/HCPCS: 93306 ==

== ENCOUNTER 2018-05-13 00:19 | Inpatient (IN) | payer MEDICARE, OTHER ==
[~2018-05-13] VITALS: Ht 188 cm; Wt 145.0 kg
[~2018-05-13 00:19] MED LIST changes: -SENN1TAB7 PO; +SENN1TAB8 PO
[2018-05-13] MEDS ORDERED: SODIUM CHLORIDE 0.9% 1,000 ML IV ONE (00:27)
[2018-05-13] MEDS ORDERED: CEFAZOLIN PMX 1GM/50ML 50 ML IVPB ONE (00:30)
[2018-05-13] MEDS ORDERED: MORPHINE SULFATE 4 MG/ML, 1ML IVPush PRN (00:30)
[2018-05-13] MEDS ORDERED: SODIUM CHLORIDE FLUSH 10ML SYR IVF ONE (00:30)
[2018-05-13] MEDS ORDERED: VANCOMYCIN PER PHARMACY MC PRN ×2 (00:30→02:30)
[2018-05-13] MEDS ORDERED: CEFAZOLIN PMX 1GM/50ML 50 ML ONE (00:52)
[2018-05-13] MEDS ORDERED: VANCOMYCIN 2,200 MG in SODIUM CHLORIDE 0.9% 500 ML IV ONE (01:00)
[2018-05-13] MEDS ORDERED: PHARMACOKINETIC CONSULTATION MC ONE (01:00)
[2018-05-13 01:12] LABS: BASOPHILS # (AUTO) 0.05 x10^3/uL (0-0.1); BASOPHILS % (AUTO) 1 % (0-1); EOSINOPHILS # (AUTO) 0.58 x10^3/uL (0-0.4); EOSINOPHILS % (AUTO) 7 % (1-7); LYMPHOCYTES # (AUTO) 1.05 x10^3/uL (1-3.4); LYMPHOCYTES % (AUTO) 13 % (22-44); MD NO; MEAN CORPUSCULAR HEMOGLOBIN 31.2 pg (27.5-34.5); MEAN CORPUSCULAR HGB CONC 33.4 g/dL (33.2-36.2); MEAN CORPUSCULAR VOLUME 93.5 fL (81-97); MEAN PLATELET VOLUME 8.3 fL (7.4-10.4); MONOCYTES # (AUTO) 0.52 x10^3/uL (0.2-0.8); MONOCYTES % (AUTO) 6 % (2-9); NEUTROPHILS # (AUTO) 6.02 x10^3/uL (1.8-6.8); NEUTROPHILS % (AUTO) 73 % (42-75); PLATELET COUNT 238 x10^3/uL (130-400); RED BLOOD COUNT 3.87 x10^6/uL (4.38-5.82); RED CELL DISTRIBUTION WIDTH 15.1 % (9.4-14.8)
[2018-05-13 01:13] LABS: ALBUMIN 2.8 g/dL (3.4-5.0); ANION GAP 9 mmol/L (5-15); CALCIUM 8.7 mg/dL (8.5-10.1); CHLORIDE 106 mmol/L (98-107); CREATININE 1.55 mg/dL (0.7-1.3)
[2018-05-13] MEDS ORDERED: LABETALOL 5MG/ML, 20ML IVPush PRN (02:00)
[2018-05-13] MEDS ORDERED: DOCUSATE 100 MG CAPSULE PO PRN (02:00)
[2018-05-13] MEDS: INSULIN LISPRO 100 UNITS/ML, PEN SQ-INSULIN SCH ×5 (02:00→20:50)
[2018-05-13] MEDS ORDERED: POLYETHYLENE GLYCOL 17 GM PACKET PO PRN (02:00)
[2018-05-13 02:51] VITALS: BP 157/80
[2018-05-13] MEDS ORDERED: PHARMACOKINETIC MONITORING MC PRN (03:00)
[2018-05-13] MEDS: PIPERACILLIN/TAZO/PMX 3.375GM 50 ML IV SCH ×4 (04:20→20:48)
[2018-05-13] MEDS: SODIUM CHLORIDE 0.9% 1,000 ML IV SCH ×2 (04:20→17:20)
[2018-05-13] MEDS: LEVOTHYROXINE 200 MCG TABLET PO SCH (06:00)
[2018-05-13] MEDS: CARVEDILOL 12.5 MG TABLET PO SCH ×2 (06:00→17:19)
[2018-05-13] MEDS ORDERED: LEVOTHYROXINE 100 MCG TABLET ONE (06:08)
[2018-05-13] MEDS ORDERED: CARVEDILOL 6.25 MG TABLET ONE ×2 (06:08→16:47)
[2018-05-13 07:09] VITALS: BP 152/74
[2018-05-13] MEDS: SENNA/DOCUSATE TABLET PO SCH (09:00)
[2018-05-13] MEDS: GABAPENTIN 300 MG CAPSULE PO SCH ×3 (09:08→20:48)
[2018-05-13] MEDS: ACETAMINOPHEN 325 MG TABLET PO PRN (09:08)
[2018-05-13] MEDS: REPAGLINIDE 2 MG TABLET PO SCH ×2 (09:08→20:48)
[2018-05-13] MEDS: ASPIRIN 81 MG TABLET EC PO SCH (09:09)
[2018-05-13] MEDS: APIXABAN 5 MG TABLET PO SCH ×2 (09:09→20:49)
[2018-05-13] MEDS: AMIODARONE 200 MG TABLET PO SCH (09:09)
[2018-05-13] MEDS: ALLOPURINOL 300 MG TABLET PO SCH (09:09)
[2018-05-13] MEDS: INSULIN GLARGINE 100 UNITS/ML, PEN SQ-INSULIN SCH (09:16)
[2018-05-13 15:54] VITALS: BP 121/72
[2018-05-13] MEDS: LINEZOLID 600 MG TABLET PO SCH ×2 (16:10→20:50)
[2018-05-13 20:00] VITALS: BP 141/95
[2018-05-13] MEDS: ATORVASTATIN 40 MG TABLET PO SCH (20:48)
[2018-05-13] MEDS: CHOLECALCIFEROL 5,000u TAB PO SCH (20:49)
[2018-05-13] MEDS: ZOLPIDEM 5MG TABLET PO SCH (20:49)
[2018-05-13] MEDS: ASCORBIC ACID 500 MG TABLET PO SCH (20:49)
[2018-05-14 01:23] VITALS: BP 131/73
[2018-05-14] MEDS: PIPERACILLIN/TAZO/PMX 3.375GM 50 ML IV SCH ×4 (02:14→21:28)
[2018-05-14] MEDS: SODIUM CHLORIDE 0.9% 1,000 ML IV SCH (04:18)
[2018-05-14 05:15] LABS: ANION GAP 6 mmol/L (5-15); CALCIUM 8.1 mg/dL (8.5-10.1); CHLORIDE 106 mmol/L (98-107); CREATININE 1.28 mg/dL (0.7-1.3)
[2018-05-14] MEDS ORDERED: LEVOTHYROXINE 100 MCG TABLET ONE (05:15)
[2018-05-14] MEDS ORDERED: CARVEDILOL 6.25 MG TABLET ONE (05:15)
[2018-05-14] MEDS: CARVEDILOL 12.5 MG TABLET PO SCH ×2 (05:19→18:14)
[2018-05-14] MEDS: LEVOTHYROXINE 200 MCG TABLET PO SCH (05:20)
[2018-05-14 05:27] LABS: BASOPHILS # (AUTO) 0.04 x10^3/uL (0-0.1); BASOPHILS % (AUTO) 1 % (0-1); EOSINOPHILS # (AUTO) 0.64 x10^3/uL (0-0.4); EOSINOPHILS % (AUTO) 13 % (1-7); LYMPHOCYTES # (AUTO) 0.71 x10^3/uL (1-3.4); LYMPHOCYTES % (AUTO) 15 % (22-44); MD NO; MEAN CORPUSCULAR HEMOGLOBIN 31.1 pg (27.5-34.5); MEAN CORPUSCULAR HGB CONC 33.1 g/dL (33.2-36.2); MEAN CORPUSCULAR VOLUME 93.8 fL (81-97); MEAN PLATELET VOLUME 7.9 fL (7.4-10.4); MONOCYTES # (AUTO) 0.38 x10^3/uL (0.2-0.8); MONOCYTES % (AUTO) 8 % (2-9); NEUTROPHILS # (AUTO) 3.06 x10^3/uL (1.8-6.8); NEUTROPHILS % (AUTO) 63 % (42-75); PLATELET COUNT 175 x10^3/uL (130-400); RED BLOOD COUNT 3.97 x10^6/uL (4.38-5.82)
[2018-05-14] MEDS: INSULIN LISPRO 100 UNITS/ML, PEN SQ-INSULIN SCH ×4 (08:03→21:30)
[2018-05-14 08:23] VITALS: BP 141/82
[2018-05-14] MEDS: APIXABAN 5 MG TABLET PO SCH ×2 (09:11→21:29)
[2018-05-14] MEDS: SENNA/DOCUSATE TABLET PO SCH (09:11)
[2018-05-14] MEDS: ALLOPURINOL 300 MG TABLET PO SCH (09:11)
[2018-05-14] MEDS: AMIODARONE 200 MG TABLET PO SCH (09:11)
[2018-05-14] MEDS: REPAGLINIDE 2 MG TABLET PO SCH ×2 (09:11→21:29)
[2018-05-14] MEDS: GABAPENTIN 300 MG CAPSULE PO SCH ×3 (09:11→21:30)
[2018-05-14] MEDS: ASPIRIN 81 MG TABLET EC PO SCH (09:11)
[2018-05-14] MEDS: INSULIN GLARGINE 100 UNITS/ML, PEN SQ-INSULIN SCH (09:12)
[2018-05-14] MEDS: LINEZOLID 600 MG TABLET PO SCH ×2 (09:13→21:29)
[2018-05-14] MEDS ORDERED: VANCOMYCIN 2,200 MG in SODIUM CHLORIDE 0.9% 500 ML IV SCH (13:00)
[2018-05-14 14:38] VITALS: BP 156/81
[2018-05-14 19:23] VITALS: BP 170/89
[2018-05-14] MEDS: ZOLPIDEM 5MG TABLET PO SCH (21:00)
[2018-05-14] MEDS: CHOLECALCIFEROL 5,000u TAB PO SCH (21:29)
[2018-05-14] MEDS: ASCORBIC ACID 500 MG TABLET PO SCH (21:29)
[2018-05-14] MEDS: ATORVASTATIN 40 MG TABLET PO SCH (21:30)
[2018-05-14] MEDS: ACETAMINOPHEN 325 MG TABLET PO PRN (21:41)
[2018-05-15 01:42] VITALS: BP 145/82
[2018-05-15] MEDS: PIPERACILLIN/TAZO/PMX 3.375GM 50 ML IV SCH ×4 (04:29→21:25)
[2018-05-15 05:44] LABS: CHLORIDE 105 mmol/L (98-107)
[2018-05-15 05:51] LABS: ANION GAP 7 mmol/L (5-15); CALCIUM 8.2 mg/dL (8.5-10.1); CREATININE 1.28 mg/dL (0.7-1.3)
[2018-05-15 06:35] VITALS: BP 131/71
[2018-05-15] MEDS: CARVEDILOL 12.5 MG TABLET PO SCH ×2 (06:39→16:58)
[2018-05-15] MEDS: LEVOTHYROXINE 200 MCG TABLET PO SCH (06:39)
[2018-05-15] MEDS: INSULIN LISPRO 100 UNITS/ML, PEN SQ-INSULIN SCH ×4 (07:45→21:38)
[2018-05-15] MEDS: INSULIN GLARGINE 100 UNITS/ML, PEN SQ-INSULIN SCH ×2 (09:00→09:27)
[2018-05-15] MEDS: SENNA/DOCUSATE TABLET PO SCH (09:22)
[2018-05-15] MEDS: ALLOPURINOL 300 MG TABLET PO SCH (09:22)
[2018-05-15] MEDS: ASPIRIN 81 MG TABLET EC PO SCH (09:22)
[2018-05-15] MEDS: REPAGLINIDE 2 MG TABLET PO SCH ×2 (09:22→21:38)
[2018-05-15] MEDS: APIXABAN 5 MG TABLET PO SCH ×2 (09:22→21:27)
[2018-05-15] MEDS: AMIODARONE 200 MG TABLET PO SCH (09:22)
[2018-05-15] MEDS: GABAPENTIN 300 MG CAPSULE PO SCH ×3 (09:22→21:26)
[2018-05-15] MEDS: LINEZOLID 600 MG TABLET PO SCH ×2 (09:40→21:00)
[2018-05-15 12:46] VITALS: BP 128/70
[2018-05-15] MEDS ORDERED: CARVEDILOL 6.25 MG TABLET ONE (16:55)
[2018-05-15 19:29] VITALS: BP 145/86
[2018-05-15] MEDS: ZOLPIDEM 5MG TABLET PO SCH (21:00)
[2018-05-15] MEDS: ASCORBIC ACID 500 MG TABLET PO SCH (21:26)
[2018-05-15] MEDS: ATORVASTATIN 40 MG TABLET PO SCH (21:27)
[2018-05-15] MEDS: CHOLECALCIFEROL 5,000u TAB PO SCH (21:27)
[2018-05-16 02:28] VITALS: BP 156/79
[2018-05-16] MEDS: PIPERACILLIN/TAZO/PMX 3.375GM 50 ML IV SCH ×2 (03:03→09:25)
[2018-05-16] MEDS: LEVOTHYROXINE 200 MCG TABLET PO SCH (06:12)
[2018-05-16] MEDS: CARVEDILOL 12.5 MG TABLET PO SCH ×2 (06:12→18:00)
[2018-05-16 06:30] VITALS: BP 129/76
[2018-05-16] MEDS: SENNA/DOCUSATE TABLET PO SCH (09:00)
[2018-05-16] MEDS: ALLOPURINOL 300 MG TABLET PO SCH (09:00)
[2018-05-16] MEDS: GABAPENTIN 300 MG CAPSULE PO SCH ×2 (09:20→15:58)
[2018-05-16] MEDS: AMIODARONE 200 MG TABLET PO SCH (09:20)
[2018-05-16] MEDS: ASPIRIN 81 MG TABLET EC PO SCH (09:20)
[2018-05-16] MEDS: APIXABAN 5 MG TABLET PO SCH (09:20)
[2018-05-16] MEDS: REPAGLINIDE 2 MG TABLET PO SCH (09:21)
[2018-05-16] MEDS: LINEZOLID 600 MG TABLET PO SCH (09:22)
[2018-05-16] MEDS: INSULIN LISPRO 100 UNITS/ML, PEN SQ-INSULIN SCH ×3 (09:25→16:04)
[2018-05-16] MEDS: INSULIN GLARGINE 100 UNITS/ML, PEN SQ-INSULIN SCH (09:26)
[2018-05-16] MEDS ORDERED: AMOX1TAB12 PO (12:55)
[2018-05-16 13:05] VITALS: BP 153/79
[2018-05-16] MEDS ORDERED: AMOXICILLIN/CLAV 875-125MG TABLET PO SCH (21:00)
== END 2018-05-16 18:07 | disposition home or self-care (01) | DRG 602 ==
LOC: ED 00:47 → 4NOR 02:12
PROVIDERS: ADMIT Family Medicine; ATTEND Family Medicine
PROC: 5A09357 Assistance with Respiratory Ventilation, Less than 24 Consecutive Hours, Continuous Positive Airway Pressure (ICD-10-PCS; principal; 2018-05-15)
PROC: 5A09357 Assistance with Respiratory Ventilation, Less than 24 Consecutive Hours, Continuous Positive Airway Pressure (ICD-10-PCS; 2018-05-15)
DX: L03.116 Cellulitis of left lower limb (principal); N17.0 Acute kidney failure with tubular necrosis; I50.30 Unspecified diastolic (congestive) heart failure; I13.0 Hypertensive heart and chronic kidney disease with heart failure and stage 1 through stage 4 chronic kidney disease, or unspecified chronic kidney disease; E44.0 Moderate protein-calorie malnutrition; E11.22 Type 2 diabetes mellitus with diabetic chronic kidney disease; E11.40 Type 2 diabetes mellitus with diabetic neuropathy, unspecified; E66.9 Obesity, unspecified; E89.0 Postprocedural hypothyroidism; G47.33 Obstructive sleep apnea (adult) (pediatric); Z66 Do not resuscitate; I25.10 Atherosclerotic heart disease of native coronary artery without angina pectoris; I48.91 Unspecified atrial fibrillation; I87.2 Venous insufficiency (chronic) (peripheral); I87.8 Other specified disorders of veins; J44.9 Chronic obstructive pulmonary disease, unspecified; K21.9 Gastro-esophageal reflux disease without esophagitis; N18.9 Chronic kidney disease, unspecified; R09.02 Hypoxemia; E11.649 Type 2 diabetes mellitus with hypoglycemia without coma; Z79.01 Long term (current) use of anticoagulants; Z79.4 Long term (current) use of insulin; Z86.14 Personal history of Methicillin resistant Staphylococcus aureus infection; Z95.0 Presence of cardiac pacemaker; Z87.891 Personal history of nicotine dependence; Z95.1 Presence of aortocoronary bypass graft; Z99.81 Dependence on supplemental oxygen
CPT/HCPCS: 36415; 80048; 82040; 82962; 83880; 85025; 87040; 87070; 87077; 87186; 87205; 93970; 99285; G0378; J0690; J2543; J3370; J1815; J7030; J7040

== ENCOUNTER 2018-09-26 13:41 | Emergency (ER) | payer MEDICARE, OTHER ==
[~2018-09-26 13:41] MED LIST changes: +AMOX1TAB12 PO; +CLIN300C8 PO; +DOXY150T PO; +INSU100I32 SQ
[2018-09-26] MEDS ORDERED: DIPHENHYDRAMINE 50 MG/ML, 1ML IVPush ONE (14:00)
[2018-09-26] MEDS ORDERED: KETOROLAC 30 MG/1 ML IVPush ONE (14:00)
[2018-09-26] MEDS ORDERED: METOCLOPRAMIDE 5 MG/ML, 2ML IVPush ONE (14:00)
[2018-09-26] MEDS ORDERED: SODIUM CHLORIDE FLUSH 10ML SYR IVF ONE (14:00)
--- NOTE | 2018-09-26 14:02 | NUR ---
Pt BIB EMS from home for intermittent MCINTOSH and gerneralized weakness x 2 weeks, zurdo since this AM. Pt states pain form neck up into head. No neuro deficits. AAOx4, drowsy. VSS. SR on on monitor. Wound van on R ankle. On home o2 at 2L
--- NOTE | 2018-09-26 14:06 | NUR ---
PATIENT TAKEN TO RAD
[2018-09-26] MEDS ORDERED: KETOROLAC 30 MG/1 ML ONE (14:08)
[2018-09-26] MEDS ORDERED: DIPHENHYDRAMINE 50 MG/ML, 1ML ONE (14:08)
[2018-09-26] MEDS ORDERED: METOCLOPRAMIDE 5 MG/ML, 2ML ONE (14:09)
[2018-09-26 14:11] LABS: BASOPHILS # (AUTO) 0.01 x10^3/uL (0-0.1); BASOPHILS % (AUTO) 0 % (0-1); EOSINOPHILS # (AUTO) 0.66 x10^3/uL (0-0.4); EOSINOPHILS % (AUTO) 9 % (1-7); LYMPHOCYTES # (AUTO) 0.94 x10^3/uL (1-3.4); LYMPHOCYTES % (AUTO) 13 % (22-44); MD NO; MEAN CORPUSCULAR HEMOGLOBIN 29.5 pg (27.5-34.5); MEAN CORPUSCULAR HGB CONC 32.1 g/dL (33.2-36.2); MEAN CORPUSCULAR VOLUME 91.9 fL (81-97); MEAN PLATELET VOLUME 7.8 fL (7.4-10.4); MONOCYTES # (AUTO) 0.39 x10^3/uL (0.2-0.8); MONOCYTES % (AUTO) 5 % (2-9); NEUTROPHILS # (AUTO) 5.42 x10^3/uL (1.8-6.8); NEUTROPHILS % (AUTO) 73 % (42-75); PLATELET COUNT 207 x10^3/uL (130-400); RED BLOOD COUNT 3.78 x10^6/uL (4.38-5.82); RED CELL DISTRIBUTION WIDTH 15.4 % (9.4-14.8)
[2018-09-26 14:22] LABS: ALBUMIN 2.6 g/dL (3.4-5.0); ANION GAP 6 mmol/L (5-15); CHLORIDE 103 mmol/L (98-107); CREATININE 1.61 mg/dL (0.7-1.3)
[2018-09-26] MEDS ORDERED: PLEASE ENTER PATIENTS HEIGHT MC SCH (14:30)
[2018-09-26 16:32] VITALS: BP 145/69
== END 2018-09-26 17:06 | disposition home or self-care (01) ==
LOC: ED 15:06
DX: G43.011 Migraine without aura, intractable, with status migrainosus (principal); E11.65 Type 2 diabetes mellitus with hyperglycemia; N17.9 Acute kidney failure, unspecified; E03.9 Hypothyroidism, unspecified; I48.91 Unspecified atrial fibrillation; I50.9 Heart failure, unspecified; E11.9 Type 2 diabetes mellitus without complications; J44.9 Chronic obstructive pulmonary disease, unspecified; E78.5 Hyperlipidemia, unspecified; K21.9 Gastro-esophageal reflux disease without esophagitis; Z86.14 Personal history of Methicillin resistant Staphylococcus aureus infection; Z95.0 Presence of cardiac pacemaker; Z95.1 Presence of aortocoronary bypass graft
CPT/HCPCS: 36415; 70450; 72050; 80048; 82040; 85025; 93005; 96374; 96375; 99284; J1200; J1885; J2765

== ENCOUNTER 2018-10-18 15:15 | Observation (INO) | payer MEDICARE, OTHER ==
[~2018-10-18] VITALS: Ht 188 cm; Wt 140.4 kg
[~2018-10-18 15:15] MED LIST changes: -PROP10TA PO; +PROP10TA16 PO
--- NOTE | 2018-10-18 16:00 | NUR ---
PT TO CT WITH TECH TRANSPORT
[2018-10-18 16:09] LABS: BASOPHILS # (AUTO) 0.06 x10^3/uL (0-0.1); BASOPHILS % (AUTO) 1 % (0-1); EOSINOPHILS # (AUTO) 0.55 x10^3/uL (0-0.4); EOSINOPHILS % (AUTO) 9 % (1-7); LYMPHOCYTES # (AUTO) 1.09 x10^3/uL (1-3.4); LYMPHOCYTES % (AUTO) 19 % (22-44); MD NO; MEAN CORPUSCULAR HEMOGLOBIN 29.5 pg (27.5-34.5); MEAN CORPUSCULAR HGB CONC 32.3 g/dL (33.2-36.2); MEAN CORPUSCULAR VOLUME 91.3 fL (81-97); MEAN PLATELET VOLUME 8.7 fL (7.4-10.4); MONOCYTES # (AUTO) 0.51 x10^3/uL (0.2-0.8); MONOCYTES % (AUTO) 9 % (2-9); NEUTROPHILS # (AUTO) 3.62 x10^3/uL (1.8-6.8); NEUTROPHILS % (AUTO) 62 % (42-75); PLATELET COUNT 188 x10^3/uL (130-400); RED CELL DISTRIBUTION WIDTH 16.1 % (9.4-14.8)
[2018-10-18 16:10] LABS: ALBUMIN 2.9 g/dL (3.4-5.0); ANION GAP 9 mmol/L (5-15); CALCIUM 8.4 mg/dL (8.5-10.1); CHLORIDE 105 mmol/L (98-107); CREATININE 1.65 mg/dL (0.7-1.3)
[2018-10-18 16:45] LABS: ALANINE AMINOTRANSFERASE 14 U/L (12-78); ALBUMIN 2.8 g/dL (3.4-5.0); ANION GAP 11 mmol/L (5-15); CALCIUM 8.2 mg/dL (8.5-10.1); CHLORIDE 105 mmol/L (98-107)
[2018-10-18 16:50] LABS: ALKALINE PHOSPHATASE 107 U/L (45-117); BILIRUBIN,TOTAL 0.5 mg/dL (0.2-1.0); CREATININE 1.68 mg/dL (0.7-1.3); TOTAL PROTEIN 6.7 g/dL (6.4-8.2)
--- NOTE | 2018-10-18 16:51 | NUR ---
PT WITH C/O BILAT LEG PAIN, PT WITH DRESSINGS PLACED AT OUT PT WOUND CARE ON BOTH LEGS, CDI. PT WEAK T/O BUT WAS ABLE TO GET OFF OF THE GURNEY AND GET UNDRESSED W/ NO ASSIST. ALL MONITORS PLACED, CALL LIGHT W/I REACH. PENDING LAB AND CT RESULTS.
--- NOTE | 2018-10-18 16:54 | NUR ---
PT AWARE OF NEED TO PROVIDE URINE SAMPLE. URINAL AT BEDSIDE.
--- NOTE | 2018-10-18 17:40 | NUR ---
BREAK RN: pt upright on gurney with eyes closed, responds approp to staff, NAD, comfort measures provided, call light within reach.
--- NOTE | 2018-10-18 17:41 | NUR ---
ERP at BS
[2018-10-18 18:20] LABS: MICROSCOPIC AUTO
[2018-10-18 18:21] LABS: CULTURE INDICATED? NO
[2018-10-18] MEDS ORDERED: INSU100V8 SQ (18:39)
[2018-10-18] MEDS ORDERED: SERT50TA PO (18:39)
[2018-10-18] MEDS ORDERED: PROSTATE COMPLEX PO (18:40)
[2018-10-18] MEDS ORDERED: ACETAMINOPHEN 325 MG TABLET PO PRN (19:00)
[2018-10-18] MEDS ORDERED: ONDANSETRON 2MG/ML, 2ML IVPush PRN (19:00)
[2018-10-18] MEDS ORDERED: MAGNESIUM OXIDE 400 MG TABLET PO PRN (19:00)
[2018-10-18] MEDS ORDERED: ONDANSETRON ODT 4 MG PO PRN (19:00)
[2018-10-18] MEDS ORDERED: HEPARIN 5,000 UNITS/ML, 1ML ONE (19:43)
[2018-10-18 19:52] VITALS: BP 149/78
[2018-10-18] MEDS ORDERED: HEPARIN 5,000 UNITS/ML, 1ML SQ SCH (20:00)
[2018-10-18 20:21] VITALS: BP 149/78
[2018-10-18] MEDS: INSULIN DEGLUDEC MC SCH (20:30)
[2018-10-18] MEDS: INSULIN GLARGINE MC SCH (20:30)
[2018-10-18] MEDS ORDERED: ATORVASTATIN 40 MG TABLET PO SCH (21:00)
[2018-10-18] MEDS ORDERED: ZINC SULFATE 220 MG TAB PO SCH (21:00)
[2018-10-18] MEDS ORDERED: CHOLECALCIFEROL 1,000 UNIT TABLET PO SCH (21:00)
[2018-10-18] MEDS ORDERED: PROSTATE COMPLEX PO SCH (21:00)
[2018-10-18] MEDS: REPAGLINIDE 2 MG TABLET PO SCH (21:00)
[2018-10-18] MEDS ORDERED: INSULIN DEGLUDEC 30 UNIT SQ SCH (21:00)
[2018-10-18] MEDS ORDERED: ASCORBIC ACID 500 MG TABLET PO SCH (21:00)
[2018-10-18] MEDS ORDERED: MULTIVITAMINS/MINERALS TABLET PO SCH (21:00)
[2018-10-18] MEDS: CARVEDILOL 12.5 MG TABLET PO SCH (23:36)
[2018-10-18] MEDS: GABAPENTIN 300 MG CAPSULE PO SCH (23:36)
[2018-10-18] MEDS: APIXABAN 5 MG TABLET PO SCH (23:37)
[2018-10-19 01:25] VITALS: BP 151/84
[2018-10-19] MEDS ORDERED: SODIUM CHLORIDE 0.9% 1,000 ML IV SCH (03:00)
[2018-10-19] MEDS: INSULIN LISPRO 100 UNITS/ML, PEN SQ-INSULIN SCH ×3 (03:30→11:00)
[2018-10-19] MEDS: INSULIN DEGLUDEC MC SCH ×2 (04:20→12:30)
[2018-10-19] MEDS: INSULIN GLARGINE MC SCH ×2 (04:20→12:30)
[2018-10-19 05:49] LABS: BASOPHILS # (AUTO) 0.04 x10^3/uL (0-0.1); BASOPHILS % (AUTO) 1 % (0-1); EOSINOPHILS # (AUTO) 0.52 x10^3/uL (0-0.4); EOSINOPHILS % (AUTO) 13 % (1-7); LYMPHOCYTES # (AUTO) 1.12 x10^3/uL (1-3.4); LYMPHOCYTES % (AUTO) 27 % (22-44); MD NO; MEAN CORPUSCULAR HEMOGLOBIN 29.4 pg (27.5-34.5); MEAN CORPUSCULAR VOLUME 91.8 fL (81-97); MEAN PLATELET VOLUME 8.7 fL (7.4-10.4); MONOCYTES # (AUTO) 0.36 x10^3/uL (0.2-0.8); MONOCYTES % (AUTO) 9 % (2-9); NEUTROPHILS # (AUTO) 2.09 x10^3/uL (1.8-6.8); NEUTROPHILS % (AUTO) 51 % (42-75); PLATELET COUNT 158 x10^3/uL (130-400); RED BLOOD COUNT 3.83 x10^6/uL (4.38-5.82); RED CELL DISTRIBUTION WIDTH 16.4 % (9.4-14.8)
[2018-10-19 05:54] LABS: ALBUMIN 2.6 g/dL (3.4-5.0); ANION GAP 6 mmol/L (5-15); CALCIUM 8.3 mg/dL (8.5-10.1); CHLORIDE 107 mmol/L (98-107)
[2018-10-19] MEDS ORDERED: LEVOTHYROXINE 200 MCG TABLET PO SCH (06:00)
[2018-10-19 06:06] LABS: ALANINE AMINOTRANSFERASE 10 U/L (12-78); ALKALINE PHOSPHATASE 83 U/L (45-117); BILIRUBIN,TOTAL 0.5 mg/dL (0.2-1.0); TOTAL PROTEIN 6.3 g/dL (6.4-8.2)
[2018-10-19] MEDS ORDERED: MAGNESIUM SULFATE PMX 2GM/50ML 50 ML IV ONE (06:30)
[2018-10-19] MEDS: INSULIN GLARGINE 100 UNITS/ML, PEN SQ-INSULIN SCH ×2 (08:23→12:00)
[2018-10-19] MEDS ORDERED: MULTIVITS,STRESS FORMULA 1 TABLET PO SCH (09:00)
[2018-10-19] MEDS ORDERED: SERTRALINE 50MG TABLET PO SCH (09:00)
[2018-10-19] MEDS: APIXABAN 5 MG TABLET PO SCH (09:00)
[2018-10-19] MEDS ORDERED: AMIODARONE 200 MG TABLET PO SCH (09:00)
[2018-10-19] MEDS: REPAGLINIDE 2 MG TABLET PO SCH (09:00)
[2018-10-19] MEDS: GABAPENTIN 300 MG CAPSULE PO SCH (09:00)
[2018-10-19] MEDS ORDERED: ASPIRIN 81 MG TABLET EC PO SCH (09:00)
[2018-10-19] MEDS ORDERED: ALLOPURINOL 300 MG TABLET PO SCH (09:00)
[2018-10-19] MEDS ORDERED: FINASTERIDE 5 MG TABLET PO SCH (09:00)
[2018-10-19] MEDS ORDERED: OMEGA-3/FISH OIL CAPSULE PO SCH (09:00)
[2018-10-19] MEDS: CARVEDILOL 12.5 MG TABLET PO SCH (09:00)
[2018-10-19 09:49] VITALS: BP 142/68
[2018-10-19] MEDS ORDERED: LEVO200T5 PO (11:08)
[2018-10-19 13:00] VITALS: BP 161/61
[2018-10-19] MEDS ORDERED: ZINC SULFATE 220 MG CAPSULE PO SCH (21:00)
== END 2018-10-19 11:35 | disposition home or self-care (01) ==
LOC: ED 17:49 → EDIP 17:50 → INTOOBSV 17:50 → ED 18:03 → 3NE 19:48
PROVIDERS: ADMIT Family Medicine; ATTEND Family Medicine
DX: E11.65 Type 2 diabetes mellitus with hyperglycemia (principal); E03.9 Hypothyroidism, unspecified; N17.9 Acute kidney failure, unspecified; H53.2 Diplopia; R07.9 Chest pain, unspecified; R62.7 Adult failure to thrive; E11.22 Type 2 diabetes mellitus with diabetic chronic kidney disease; E11.622 Type 2 diabetes mellitus with other skin ulcer; E78.5 Hyperlipidemia, unspecified; G47.33 Obstructive sleep apnea (adult) (pediatric); G89.29 Other chronic pain; I13.0 Hypertensive heart and chronic kidney disease with heart failure and stage 1 through stage 4 chronic kidney disease, or unspecified chronic kidney disease; I25.10 Atherosclerotic heart disease of native coronary artery without angina pectoris; I48.0 Paroxysmal atrial fibrillation; I50.9 Heart failure, unspecified; J44.9 Chronic obstructive pulmonary disease, unspecified; K21.9 Gastro-esophageal reflux disease without esophagitis; M10.9 Gout, unspecified; M19.90 Unspecified osteoarthritis, unspecified site; N18.9 Chronic kidney disease, unspecified; Z79.01 Long term (current) use of anticoagulants; Z86.14 Personal history of Methicillin resistant Staphylococcus aureus infection; Z86.72 Personal history of thrombophlebitis; L97.929 Non-pressure chronic ulcer of unspecified part of left lower leg with unspecified severity; Z95.1 Presence of aortocoronary bypass graft; Z87.891 Personal history of nicotine dependence; Z99.81 Dependence on supplemental oxygen
CPT/HCPCS: 36415; 70450; 71045; 80048; 80053; 81001; 82040; 83690; 83735; 83880; 84100; 84443; 84484; 85025; 93005; 94660; 96361; 96365; 96366; 96372; 97163; 97166; 99284; G0378; G8978; G8979; G8980; J1644; J1815; J3475; J7030

== ENCOUNTER 2018-11-23 13:45 | Inpatient (IN) | payer MEDICARE, OTHER ==
[~2018-11-23] VITALS: Ht 188 cm; Wt 137.8 kg
[~2018-11-23 13:45] MED LIST changes: +PROSTATE COMPLEX PO; +SENN-177 PO; -SENN1TAB8 PO; +SERT50TA PO
--- NOTE | 2018-11-23 13:50 | NUR ---
PER EMS PT HASN'T TAKEN NOVOLOG X 1 MONTH DUE TO PROBLEMS WITH THE PRESCRIPTION.
--- NOTE | 2018-11-23 13:58 | NUR ---
PT CONFUSED ON PLACE & MONTH, LETHARGIC. CARLO SINGH (CORD SPLICER) NOTIFIED OF PT STATUS
--- NOTE | 2018-11-23 14:07 | NUR ---
MOVEDTO TR03
--- NOTE | 2018-11-23 14:10 | NUR ---
DR AMAYA BS FOR EXAM.
--- NOTE | 2018-11-23 14:15 | NUR ---
PT CARE TRANSFERRED TO CARLO HU
--- NOTE | 2018-11-23 14:18 | NUR ---
REPORT RECEIVED FROM CARLO BRITTON. ASSUMED CARE OF PT. PT ANSWERS ALL ORIENTATION QUESTIONS APPROPRIATELY, BUT HAS TO THINK FOR A SECOND BEFORE ANSWERING. PT AWAKENS TO NAME BEING CALLED, BUT WILL IMMEDIATELY FALL ASLEEP. PT ON CONT BP, CARDIAC AND O2 MONITORS. PT C/O MCINTOSH, CHEST "LUMP" AND PAIN ACROSS SHOULDER BLADES X 2-3 WEEKS, WORSE SINCE YESTERDAY. PT ON CONT BP, CARDIAC AND O2 MONITORS. CALL LIGHT WITHIN REACH. WILL CONT TO MONITOR PT.
[2018-11-23] MEDS ORDERED: SODIUM CHLORIDE 0.9% 1,000ML IVBOLUS ONE ×2 (14:30→15:00)
[2018-11-23 14:36] LABS: PH, VENOUS 7.334 pH (7.320-7.420)
[2018-11-23] MEDS ORDERED: CARV-39 PO (14:40)
[2018-11-23] MEDS ORDERED: SERT100T32 PO (14:40)
[2018-11-23] MEDS ORDERED: INSU100I18 SQ (14:40)
[2018-11-23 14:48] LABS: ALANINE AMINOTRANSFERASE 20 U/L (12-78); ALBUMIN 3.1 g/dL (3.4-5.0); ANION GAP 10 mmol/L (5-15); BASOPHILS # (AUTO) 0.07 x10^3/uL (0-0.1); BASOPHILS % (AUTO) 1 % (0-1); CALCIUM 7.9 mg/dL (8.5-10.1); CHLORIDE 97 mmol/L (98-107); CREATININE 1.86 mg/dL (0.7-1.3); EOSINOPHILS # (AUTO) 0.36 x10^3/uL (0-0.4); EOSINOPHILS % (AUTO) 7 % (1-7); LYMPHOCYTES # (AUTO) 1.18 x10^3/uL (1-3.4); LYMPHOCYTES % (AUTO) 22 % (22-44); MD NO; MEAN CORPUSCULAR HEMOGLOBIN 30.1 pg (27.5-34.5); MEAN CORPUSCULAR HGB CONC 33.2 g/dL (33.2-36.2); MEAN CORPUSCULAR VOLUME 90.8 fL (81-97); MEAN PLATELET VOLUME 10.5 fL (7.4-10.4); MONOCYTES # (AUTO) 0.33 x10^3/uL (0.2-0.8); MONOCYTES % (AUTO) 6 % (2-9); NEUTROPHILS % (AUTO) 64 % (42-75); PLATELET COUNT 175 x10^3/uL (130-400); RED BLOOD COUNT 4.51 x10^6/uL (4.38-5.82); RED CELL DISTRIBUTION WIDTH 15.5 % (9.4-14.8)
[2018-11-23 14:53] LABS: ALKALINE PHOSPHATASE 123 U/L (45-117); BILIRUBIN,TOTAL 0.8 mg/dL (0.2-1.0); TOTAL PROTEIN 7.1 g/dL (6.4-8.2)
[2018-11-23 14:56] LABS: ACETONE, SERUM Moderate(40mg/dL) mg/dL (Negative)
--- NOTE | 2018-11-23 15:18 | NUR ---
PT CURRENTLY SLEEPING ON [employer]. NAD NOTED. SKIN PWD. RESP EVEN AND EQAUL. PT AWAKENS TO NAME BEING CALLED. PT AO X 4. PT NSR 60'S ON LITHOGRAPHIC PROOFER APPRENTICE. CALL LIGHT WITHIN REACH. BS 565, CASIE AMAYA AWARE. IVF RUNNING. RN TO RECHECK BS AFTER 2ND LITER OF FLUID INFUSED. PT AWARE WE NEED URINE SAMPLE. URINAL AT BEDSIDE. PT ON CONT BP, CARDIAC AND O2 MONITORS. CALL LIGHT WITHIN REACH. WILL CONT TO MONITOR PT.
--- NOTE | 2018-11-23 15:52 | NUR ---
PT STOOD AT BEDSIDE AND PROVIDED URINE SAMPLE. URINE SAMPLE SENT TO LAB. PT ASS[facility]ED BACK TO [facility]. PT DROWSY, BUT AWAKENS TO NAME BEING CALLED. PT AO X 4. PT FOLLOWS ALL COMMANDS. PT NSR 60'S ON MUSIC CATALOGUER. PT DENIES PAIN/NEEDS AT THIS TIME. PT PROVIDED WITH WARM BLANKET. PT MOVED FROM [id number] TO RM 36 AT THIS TIME. REPORT TO CARLO BRITTON WHO ASSUMED CARE OF PT.
[2018-11-23 15:53] LABS: MICROSCOPIC AUTO
[2018-11-23 15:56] LABS: CULTURE INDICATED? NO
--- NOTE | 2018-11-23 16:15 | NUR ---
PT ASLEEP, SNORING NOTED, RESP EVEN. SIDE RAILS UP X2, CALL LIGHT W/IN REACH. CARDIAC & VS MONITOR ON, O2 @4LNC, IV NS INFUSING, SITE PATENT (LT WRIST).
--- NOTE | 2018-11-23 16:47 | NUR ---
[facility] RESIDENT BS FOR EXAM. PT COLOR HAS IMPROVED SINCE ARRIVAL: NOW PINK/WARM/DRY. DENIES SOB, NAUSEA. SPEECH CLEAR, ABLE TO SPEAK IN COMPLETE SENTENCES. REPORTS MCINTOSH, SINUS INFECTION. MONITORING CONTINUES: PACED RHYTHM, RATE: 60.
[2018-11-23] MEDS: SODIUM CHLORIDE 0.9% 1,000 ML IV SCH (17:23)
[2018-11-23] MEDS ORDERED: ONDANSETRON 2MG/ML, 2ML IVPush PRN (17:30)
[2018-11-23] MEDS ORDERED: ACETAMINOPHEN 325 MG TABLET PO PRN (17:30)
[2018-11-23] MEDS ORDERED: BISACODYL 10 MG SUPP PR PRN (17:30)
[2018-11-23] MEDS ORDERED: DOCUSATE 100 MG CAPSULE PO PRN (17:30)
--- NOTE | 2018-11-23 17:38 | NUR ---
PT REPORT TO CARLO WEBB FOR ROOM 489
--- NOTE | 2018-11-23 17:59 | NUR ---
PT REPORT TO BREAK RN: MAYTE Crook
[2018-11-23 20:27] VITALS: BP 169/84
[2018-11-23] MEDS ORDERED: INSULIN GLARGINE 100 UNITS/ML, PEN SQ-INSULIN ONE (21:00)
[2018-11-23] MEDS: APIXABAN 5 MG TABLET PO SCH (21:59)
[2018-11-23] MEDS: CARVEDILOL 12.5 MG TABLET PO SCH (21:59)
[2018-11-23] MEDS: ATORVASTATIN 40 MG TABLET PO SCH (21:59)
[2018-11-23] MEDS: GABAPENTIN 300 MG CAPSULE PO SCH (21:59)
[2018-11-23] MEDS: CHOLECALCIFEROL 1,000 UNIT TABLET PO SCH (22:00)
[2018-11-23] MEDS: ASCORBIC ACID 500 MG TABLET PO SCH (22:00)
[2018-11-23] MEDS: MULTIVITAMINS/MINERALS TABLET PO SCH (22:00)
[2018-11-23] MEDS: REPAGLINIDE 2 MG TABLET PO SCH (22:06)
[2018-11-24] MEDS: SODIUM CHLORIDE 0.9% 1,000 ML IV SCH ×2 (00:50→06:36)
[2018-11-24 01:17] VITALS: BP 143/77
[2018-11-24] MEDS: INSULIN LISPRO 100 UNITS/ML, PEN SQ-INSULIN SCH ×8 (02:04→21:47)
[2018-11-24 06:30] VITALS: BP 125/74
[2018-11-24] MEDS: LEVOTHYROXINE 200 MCG TABLET PO SCH (06:32)
[2018-11-24] MEDS: LEVOTHYROXINE 25 MCG TABLET PO SCH (06:33)
[2018-11-24] MEDS: CARVEDILOL 12.5 MG TABLET PO SCH ×2 (06:33→17:26)
[2018-11-24] MEDS: ASPIRIN 81 MG TABLET EC PO SCH (06:33)
[2018-11-24 07:47] LABS: ANION GAP 5 mmol/L (5-15); CALCIUM 7.6 mg/dL (8.5-10.1); CHLORIDE 106 mmol/L (98-107); CREATININE 1.64 mg/dL (0.7-1.3)
[2018-11-24 08:28] LABS: MEAN CORPUSCULAR HEMOGLOBIN 29.4 pg (27.5-34.5); MEAN CORPUSCULAR HGB CONC 32.7 g/dL (33.2-36.2); MEAN CORPUSCULAR VOLUME 89.8 fL (81-97); RED BLOOD COUNT 4.28 x10^6/uL (4.38-5.82); RED CELL DISTRIBUTION WIDTH 16.1 % (9.4-14.8)
[2018-11-24 08:29] LABS: MEAN PLATELET VOLUME 9.2 fL (7.4-10.4); PLATELET COUNT 139 x10^3/uL (130-400)
[2018-11-24 08:30] LABS: BASOPHILS # (AUTO) 0.06 x10^3/uL (0-0.1); BASOPHILS % (AUTO) 2 % (0-1); EOSINOPHILS # (AUTO) 0.42 x10^3/uL (0-0.4); EOSINOPHILS % (AUTO) 10 % (1-7); LYMPHOCYTES # (AUTO) 1.26 x10^3/uL (1-3.4); LYMPHOCYTES % (AUTO) 31 % (22-44); MD SCAN; MONOCYTES % (AUTO) 7 % (2-9); NEUTROPHILS # (AUTO) 2.04 x10^3/uL (1.8-6.8); NEUTROPHILS % (AUTO) 50 % (42-75)
[2018-11-24] MEDS ORDERED: POTASSIUM PHOSPHATE 44 MEQ in SODIUM CHLORIDE 0.9% 500 ML IV ONE (08:30)
[2018-11-24] MEDS: MULTIVITS,STRESS FORMULA 1 TABLET PO SCH (08:51)
[2018-11-24] MEDS: FINASTERIDE 5 MG TABLET PO SCH (08:51)
[2018-11-24] MEDS: MAGNESIUM OXIDE 400 MG TABLET PO SCH (08:51)
[2018-11-24] MEDS: ALLOPURINOL 300 MG TABLET PO SCH (08:51)
[2018-11-24] MEDS: SERTRALINE 100MG TABLET PO SCH (08:52)
[2018-11-24] MEDS: OMEGA-3/FISH OIL CAPSULE PO SCH (08:52)
[2018-11-24] MEDS: APIXABAN 5 MG TABLET PO SCH ×2 (08:52→21:48)
[2018-11-24] MEDS: REPAGLINIDE 2 MG TABLET PO SCH ×2 (08:52→17:25)
[2018-11-24] MEDS: GABAPENTIN 300 MG CAPSULE PO SCH ×3 (08:52→21:48)
[2018-11-24] MEDS: AMIODARONE 200 MG TABLET PO SCH (08:52)
[2018-11-24] MEDS: ZINC SULFATE 220 MG CAPSULE PO SCH (08:53)
[2018-11-24] MEDS: INSULIN GLARGINE 100 UNITS/ML, PEN SQ-INSULIN SCH ×3 (08:55→17:24)
[2018-11-24 12:14] LABS: HEMOGLOBIN A1C 12.9 % (4.2-6.3)
[2018-11-24 14:36] VITALS: BP 127/73
[2018-11-24] MEDS ORDERED: SODIUM CHLORIDE 0.9% 1,000 ML IV SCH (17:03)
[2018-11-24 19:25] VITALS: BP 100/59
[2018-11-24] MEDS: ATORVASTATIN 40 MG TABLET PO SCH (21:47)
[2018-11-24] MEDS: CHOLECALCIFEROL 1,000 UNIT TABLET PO SCH (21:47)
[2018-11-24] MEDS: MULTIVITAMINS/MINERALS TABLET PO SCH (21:48)
[2018-11-24] MEDS: ASCORBIC ACID 500 MG TABLET PO SCH (21:48)
[2018-11-25 02:55] VITALS: BP 116/72
[2018-11-25 05:29] LABS: ANION GAP 4 mmol/L (5-15); CALCIUM 7.9 mg/dL (8.5-10.1); CHLORIDE 108 mmol/L (98-107)
[2018-11-25 05:30] LABS: CREATININE 1.32 mg/dL (0.7-1.3)
[2018-11-25 06:08] VITALS: BP 109/68
[2018-11-25] MEDS: INSULIN LISPRO 100 UNITS/ML, PEN SQ-INSULIN SCH ×4 (07:00→12:48)
[2018-11-25] MEDS: MAGNESIUM OXIDE 400 MG TABLET PO SCH (09:23)
[2018-11-25] MEDS: AMIODARONE 200 MG TABLET PO SCH (09:23)
[2018-11-25] MEDS: ZINC SULFATE 220 MG CAPSULE PO SCH (09:23)
[2018-11-25] MEDS: LEVOTHYROXINE 200 MCG TABLET PO SCH (09:23)
[2018-11-25] MEDS: OMEGA-3/FISH OIL CAPSULE PO SCH (09:23)
[2018-11-25] MEDS: LEVOTHYROXINE 25 MCG TABLET PO SCH (09:23)
[2018-11-25] MEDS: REPAGLINIDE 2 MG TABLET PO SCH (09:24)
[2018-11-25] MEDS: CARVEDILOL 12.5 MG TABLET PO SCH (09:24)
[2018-11-25] MEDS: GABAPENTIN 300 MG CAPSULE PO SCH (09:24)
[2018-11-25] MEDS: ALLOPURINOL 300 MG TABLET PO SCH (09:24)
[2018-11-25] MEDS: FINASTERIDE 5 MG TABLET PO SCH (09:24)
[2018-11-25] MEDS: ASPIRIN 81 MG TABLET EC PO SCH (09:24)
[2018-11-25] MEDS: APIXABAN 5 MG TABLET PO SCH (09:24)
[2018-11-25] MEDS: SERTRALINE 100MG TABLET PO SCH (09:24)
[2018-11-25] MEDS: MULTIVITS,STRESS FORMULA 1 TABLET PO SCH (09:24)
[2018-11-25] MEDS: INSULIN GLARGINE 100 UNITS/ML, PEN SQ-INSULIN SCH ×2 (09:25→12:48)
[2018-11-25 13:53] VITALS: BP 112/76
== END 2018-11-25 16:58 | disposition home or self-care (01) | DRG 637 ==
LOC: ED 16:35 → EDIP 17:03 → 4EST 19:21
PROVIDERS: ADMIT Family Medicine; ATTEND Family Medicine
PROC: 5A09457 Assistance with Respiratory Ventilation, 24-96 Consecutive Hours, Continuous Positive Airway Pressure (ICD-10-PCS; principal; 2018-11-23)
DX: E11.65 Type 2 diabetes mellitus with hyperglycemia (principal); N17.0 Acute kidney failure with tubular necrosis; J96.11 Chronic respiratory failure with hypoxia; I42.9 Cardiomyopathy, unspecified; I50.30 Unspecified diastolic (congestive) heart failure; I13.0 Hypertensive heart and chronic kidney disease with heart failure and stage 1 through stage 4 chronic kidney disease, or unspecified chronic kidney disease; E03.9 Hypothyroidism, unspecified; E11.51 Type 2 diabetes mellitus with diabetic peripheral angiopathy without gangrene; E66.9 Obesity, unspecified; E78.5 Hyperlipidemia, unspecified; E83.39 Other disorders of phosphorus metabolism; E87.6 Hypokalemia; E88.81 Metabolic syndrome and other insulin resistance; F32.9 Major depressive disorder, single episode, unspecified; G25.0 Essential tremor; G47.33 Obstructive sleep apnea (adult) (pediatric); G62.9 Polyneuropathy, unspecified; I25.10 Atherosclerotic heart disease of native coronary artery without angina pectoris; I48.91 Unspecified atrial fibrillation; I87.2 Venous insufficiency (chronic) (peripheral); I87.8 Other specified disorders of veins; J32.9 Chronic sinusitis, unspecified; J44.9 Chronic obstructive pulmonary disease, unspecified; K21.9 Gastro-esophageal reflux disease without esophagitis; M10.9 Gout, unspecified; N40.0 Benign prostatic hyperplasia without lower urinary tract symptoms; Z79.01 Long term (current) use of anticoagulants; Z66 Do not resuscitate; Z79.4 Long term (current) use of insulin; Z86.14 Personal history of Methicillin resistant Staphylococcus aureus infection; Z86.72 Personal history of thrombophlebitis; Z87.891 Personal history of nicotine dependence; Z91.14 Patient's other noncompliance with medication regimen; Z95.1 Presence of aortocoronary bypass graft; Z99.81 Dependence on supplemental oxygen; I11.0 Hypertensive heart disease with heart failure; Z68.39 Body mass index [BMI] 39.0-39.9, adult; N18.9 Chronic kidney disease, unspecified; E11.22 Type 2 diabetes mellitus with diabetic chronic kidney disease
CPT/HCPCS: 36415; 80048; 80053; 81001; 82010; 82803; 82947; 82962; 83036; 83735; 84100; 84443; 85025; 93005; 94660; 96360; G0378; J1815; J7030; J7040

== ENCOUNTER 2018-12-02 15:27 | Inpatient (IN) | payer MEDICARE, OTHER ==
[~2018-12-02] VITALS: Ht 188 cm; Wt 140.0 kg
[~2018-12-02 15:27] MED LIST changes: +CARV-39 PO; +SERT100T32 PO
--- NOTE | 2018-12-02 15:27 | NUR ---
Pt brought in by EMS for CP that he states he has had for 3-4 months but it got worse today at appx 1030 when he was organizing paperwork. Pt described the pain as 7/10, substernal and sharp. Pt states nothing made it worse, mild tenderness upon palpation. Pt states that the pain is now resolved. Pt is a diabetic, blood sugar was 566 per EMS. Pt was given 200mL NS en route, as well as 324 mg ASA. IV established en route and found to be patent in ED. EKG done upon arrival to ED. Pt presents with a paced rhythm, rate 60s-70s. Pt brought in on 4LPM O2, states that he uses 2LPM during the day at home. RA sat 96% in ED.
--- NOTE | 2018-12-02 15:38 | NUR ---
Elba CANTU, at bedside to evaluate pt.
--- NOTE | 2018-12-02 15:40 | NUR ---
ASSUMED CARE OF PT FROM FLOAT CARLO HEADLEY. PT CURRENTLY DOZING ON GURNAHUN. PT DROWSY, BUT AWAKENS TO NAME BEING CALLED AND IS AO X 4. NAD NOTED. SKIN PWD. RESP EVEN AND EQAUL. CALL LIGHT WITHIN REACH. WILL COTN TO MONITOR PT.
[2018-12-02 15:57] LABS: BASOPHILS # (AUTO) 0.02 x10^3/uL (0-0.1); BASOPHILS % (AUTO) 1 % (0-1); EOSINOPHILS # (AUTO) 0.25 x10^3/uL (0-0.4); EOSINOPHILS % (AUTO) 6 % (1-7); LYMPHOCYTES # (AUTO) 0.73 x10^3/uL (1-3.4); LYMPHOCYTES % (AUTO) 16 % (22-44); MD NO; MEAN CORPUSCULAR HEMOGLOBIN 30.4 pg (27.5-34.5); MEAN CORPUSCULAR VOLUME 92.1 fL (81-97); MEAN PLATELET VOLUME 8.5 fL (7.4-10.4); MONOCYTES # (AUTO) 0.45 x10^3/uL (0.2-0.8); MONOCYTES % (AUTO) 10 % (2-9); NEUTROPHILS # (AUTO) 3.09 x10^3/uL (1.8-6.8); NEUTROPHILS % (AUTO) 68 % (42-75); PLATELET COUNT 183 x10^3/uL (130-400); RED BLOOD COUNT 4.12 x10^6/uL (4.38-5.82); RED CELL DISTRIBUTION WIDTH 16.2 % (9.4-14.8)
[2018-12-02] MEDS ORDERED: ASPIRIN 81 MG TABLET CHEW PO ONE (16:00)
[2018-12-02] MEDS ORDERED: SODIUM CHLORIDE 0.9% 1,000ML IVBOLUS ONE (16:00)
[2018-12-02 16:08] LABS: ALANINE AMINOTRANSFERASE 15 U/L (12-78); ALBUMIN 3.1 g/dL (3.4-5.0); ANION GAP 5 mmol/L (5-15); CALCIUM 8.3 mg/dL (8.5-10.1); CHLORIDE 104 mmol/L (98-107); CREATININE 1.94 mg/dL (0.7-1.3)
[2018-12-02 16:12] LABS: ALKALINE PHOSPHATASE 94 U/L (45-117); BILIRUBIN,TOTAL 0.5 mg/dL (0.2-1.0); TOTAL PROTEIN 6.7 g/dL (6.4-8.2); TROPONIN I 0.019 ng/mL (0.000-0.045)
[2018-12-02] MEDS ORDERED: ASPIRIN 81 MG TABLET EC ONE (16:29)
--- NOTE | 2018-12-02 16:30 | NUR ---
PT CURRENTLY DOZING ON CELINA. PT AWAKENS TO NAME BEING CALLED AND IS AO X 4. NAD NOTED. SKIN PWD. RESP EVEN AND EQUAL. PT ON CONT BP, CARDIAC AND O2 MONITORS. CALL LIGHT WITHIN REACH. WILL CONT TO MONITOR PT.
[2018-12-02 16:36] LABS: ACETONE, SERUM Negative (Negative)
[2018-12-02] MEDS ORDERED: INSULIN REGULAR 100 UNITS/ML, 3ML VIAL IVPush ONE (17:00)
[2018-12-02] MEDS ORDERED: INSULIN LISPRO 100 UNITS/ML, PEN ONE (17:05)
--- NOTE | 2018-12-02 17:44 | NUR ---
ADMITTING [facility] MD AT BEDSIDE FOR EVAL AT THIS TIME. PT CURRENTLY RESTING ON GURNEY. NAD NOTED. SKIN PWD .RESP EVEN AND EQAUL. PT DROWSY, BUT AWAKENS TO NAME BEING CALLED AND FOLLOWS ALL COMMANDS APPROPRIATELY AND ANSWERS ALL ORIENTATION QUESTIONS APPROPRIATELY. PT ON CONT CARDAIC, BP AND O2 MONITORS. PACED RHYTHM IN THE 60'S ON THE BOBBIN CLEANER. CALL LIGHT WITHIN REACH. WILL CONT TO MONITOR PT.
[2018-12-02] MEDS ORDERED: HEPARIN 5,000 UNITS/ML, 1ML SQ SCH (18:00)
[2018-12-02] MEDS ORDERED: NITROGLYCERIN 0.4 MG BOTTLE (25 TABS) SL PRN (18:00)
[2018-12-02] MEDS ORDERED: LABETALOL 5 MG/ML SYRINGE IVPush PRN (18:00)
[2018-12-02] MEDS ORDERED: POLYETHYLENE GLYCOL 17 GM PACKET PO PRN (18:00)
[2018-12-02] MEDS ORDERED: BISACODYL 10 MG SUPP PR PRN (18:00)
[2018-12-02] MEDS ORDERED: DOCUSATE 100 MG CAPSULE PO PRN (18:00)
[2018-12-02] MEDS ORDERED: ACETAMINOPHEN 325 MG TABLET PO PRN (18:00)
[2018-12-02] MEDS ORDERED: NITROGLYCERIN 0.4 MG/SPRAY SL PRN (18:00)
[2018-12-02 18:57] LABS: TROPONIN I < 0.015 ng/mL (0.000-0.045)
[2018-12-02] MEDS ORDERED: FUROSEMIDE 20 MG/2 ML IV ONE (19:00)
[2018-12-02] MEDS ORDERED: MAALOX/HYOSCYAMINE/LIDOCAINE 45 ML BTL PO ONE (19:00)
[2018-12-02 20:18] VITALS: BP 132/94
[2018-12-02] MEDS: APIXABAN 5 MG TABLET PO SCH (20:23)
[2018-12-02] MEDS: GABAPENTIN 300 MG CAPSULE PO SCH (20:24)
[2018-12-02] MEDS: ATORVASTATIN 40 MG TABLET PO SCH (20:24)
[2018-12-02] MEDS: REPAGLINIDE 2 MG TABLET PO SCH (20:25)
[2018-12-02] MEDS: INSULIN LISPRO 100 UNITS/ML, PEN SQ-INSULIN SCH ×2 (21:00→21:22)
[2018-12-02] MEDS: INSULIN GLARGINE 100 UNITS/ML, PEN SQ-INSULIN SCH (21:21)
[2018-12-02 23:01] LABS: MICROSCOPIC AUTO
[2018-12-02 23:03] LABS: CULTURE INDICATED? NO
[2018-12-03 00:32] LABS: TROPONIN I < 0.015 ng/mL (0.000-0.045)
[2018-12-03 01:46] VITALS: BP 148/73
[2018-12-03 04:15] LABS: BASOPHILS # (AUTO) 0.03 x10^3/uL (0-0.1); BASOPHILS % (AUTO) 1 % (0-1); EOSINOPHILS # (AUTO) 0.41 x10^3/uL (0-0.4); EOSINOPHILS % (AUTO) 8 % (1-7); LYMPHOCYTES # (AUTO) 1.36 x10^3/uL (1-3.4); LYMPHOCYTES % (AUTO) 28 % (22-44); MD NO; MEAN CORPUSCULAR HEMOGLOBIN 30.6 pg (27.5-34.5); MEAN CORPUSCULAR HGB CONC 33.3 g/dL (33.2-36.2); MONOCYTES # (AUTO) 0.48 x10^3/uL (0.2-0.8); MONOCYTES % (AUTO) 10 % (2-9); NEUTROPHILS # (AUTO) 2.61 x10^3/uL (1.8-6.8); NEUTROPHILS % (AUTO) 53 % (42-75); PLATELET COUNT 167 x10^3/uL (130-400); RED BLOOD COUNT 4.27 x10^6/uL (4.38-5.82); RED CELL DISTRIBUTION WIDTH 16.7 % (9.4-14.8)
[2018-12-03 04:18] LABS: ANION GAP 3 mmol/L (5-15); CALCIUM 8.4 mg/dL (8.5-10.1); CHLORIDE 106 mmol/L (98-107); CREATININE 1.63 mg/dL (0.7-1.3)
[2018-12-03 07:13] VITALS: BP 130/74
[2018-12-03] MEDS ORDERED: REGADENOSON 0.4 MG/5 ML SYRINGE ONE (08:44)
[2018-12-03] MEDS: INSULIN LISPRO 100 UNITS/ML, PEN SQ-INSULIN SCH ×6 (08:49→21:46)
[2018-12-03] MEDS ORDERED: LEVOTHYROXINE 112 MCG TABLET PO SCH (09:00)
[2018-12-03] MEDS ORDERED: LEVOTHYROXINE 125 MCG TABLET ONE (10:45)
[2018-12-03] MEDS ORDERED: LEVOTHYROXINE 100 MCG TABLET ONE (10:46)
[2018-12-03] MEDS: CARVEDILOL 25 MG TABLET PO SCH (10:52)
[2018-12-03] MEDS: APIXABAN 5 MG TABLET PO SCH ×2 (10:53→21:42)
[2018-12-03] MEDS: ALLOPURINOL 300 MG TABLET PO SCH (10:53)
[2018-12-03] MEDS: REPAGLINIDE 2 MG TABLET PO SCH ×2 (10:53→21:43)
[2018-12-03] MEDS: AMIODARONE 200 MG TABLET PO SCH (10:53)
[2018-12-03] MEDS: GABAPENTIN 300 MG CAPSULE PO SCH ×3 (10:53→21:43)
[2018-12-03] MEDS: SERTRALINE 100MG TABLET PO SCH (10:53)
[2018-12-03] MEDS: LEVOTHYROXINE 112 MCG TABLET PO SCH (10:54)
[2018-12-03] MEDS: FINASTERIDE 5 MG TABLET PO SCH (10:54)
[2018-12-03] MEDS: ASPIRIN 81 MG TABLET EC PO SCH (10:54)
[2018-12-03] MEDS: INSULIN GLARGINE 100 UNITS/ML, PEN SQ-INSULIN SCH ×2 (10:55→21:46)
[2018-12-03 14:00] VITALS: BP 134/76
[2018-12-03 17:11] VITALS: BP 128/71
[2018-12-03 21:20] VITALS: BP 135/74
[2018-12-03] MEDS: ATORVASTATIN 40 MG TABLET PO SCH (21:43)
[2018-12-04 00:08] VITALS: BP 169/89
[2018-12-04] MEDS ORDERED: LEVOTHYROXINE 100 MCG TABLET ONE (06:59)
[2018-12-04] MEDS ORDERED: LEVOTHYROXINE 125 MCG TABLET ONE (06:59)
[2018-12-04] MEDS: LEVOTHYROXINE 112 MCG TABLET PO SCH (07:04)
[2018-12-04] MEDS: INSULIN LISPRO 100 UNITS/ML, PEN SQ-INSULIN SCH ×6 (07:54→16:38)
[2018-12-04] MEDS: CARVEDILOL 25 MG TABLET PO SCH (08:14)
[2018-12-04] MEDS: AMIODARONE 200 MG TABLET PO SCH (08:14)
[2018-12-04] MEDS: FINASTERIDE 5 MG TABLET PO SCH (08:14)
[2018-12-04] MEDS: ASPIRIN 81 MG TABLET EC PO SCH (08:14)
[2018-12-04] MEDS: APIXABAN 5 MG TABLET PO SCH (08:15)
[2018-12-04] MEDS: REPAGLINIDE 2 MG TABLET PO SCH (08:15)
[2018-12-04] MEDS: ALLOPURINOL 300 MG TABLET PO SCH (08:15)
[2018-12-04] MEDS: SERTRALINE 100MG TABLET PO SCH (08:15)
[2018-12-04] MEDS: GABAPENTIN 300 MG CAPSULE PO SCH ×2 (08:15→16:37)
[2018-12-04 09:49] VITALS: BP 124/78
[2018-12-04] MEDS: INSULIN GLARGINE 100 UNITS/ML, PEN SQ-INSULIN SCH (13:08)
== END 2018-12-04 18:44 | disposition home or self-care (01) | DRG 682 ==
LOC: ED 15:52 → EDIP 17:03 → 5SO 18:07
PROVIDERS: ADMIT Family Medicine; ATTEND Family Medicine
DX: N17.0 Acute kidney failure with tubular necrosis (principal); G93.41 Metabolic encephalopathy; I24.9 Acute ischemic heart disease, unspecified; I13.0 Hypertensive heart and chronic kidney disease with heart failure and stage 1 through stage 4 chronic kidney disease, or unspecified chronic kidney disease; J96.11 Chronic respiratory failure with hypoxia; I50.42 Chronic combined systolic (congestive) and diastolic (congestive) heart failure; I42.9 Cardiomyopathy, unspecified; E03.9 Hypothyroidism, unspecified; E11.22 Type 2 diabetes mellitus with diabetic chronic kidney disease; E11.51 Type 2 diabetes mellitus with diabetic peripheral angiopathy without gangrene; E11.65 Type 2 diabetes mellitus with hyperglycemia; E66.01 Morbid (severe) obesity due to excess calories; F32.9 Major depressive disorder, single episode, unspecified; G47.33 Obstructive sleep apnea (adult) (pediatric); E11.40 Type 2 diabetes mellitus with diabetic neuropathy, unspecified; H53.2 Diplopia; I25.10 Atherosclerotic heart disease of native coronary artery without angina pectoris; I48.91 Unspecified atrial fibrillation; I87.8 Other specified disorders of veins; J44.9 Chronic obstructive pulmonary disease, unspecified; M10.9 Gout, unspecified; Z66 Do not resuscitate; N18.2 Chronic kidney disease, stage 2 (mild); N40.0 Benign prostatic hyperplasia without lower urinary tract symptoms; Z79.01 Long term (current) use of anticoagulants; Z82.49 Family history of ischemic heart disease and other diseases of the circulatory system; Z68.39 Body mass index [BMI] 39.0-39.9, adult; Z86.14 Personal history of Methicillin resistant Staphylococcus aureus infection; Z87.891 Personal history of nicotine dependence; Z95.1 Presence of aortocoronary bypass graft; Z99.81 Dependence on supplemental oxygen
CPT/HCPCS: 36415; 70450; 71045; 78452; 80048; 80053; 81001; 82010; 82962; 83880; 84443; 84484; 85025; 93005; 93017; 93306; 96361; 96374; G0378; J1815; J2785; A9502; C9898; J1940; J7030

== ENCOUNTER 2018-12-31 13:15 | Inpatient (IN) | payer MEDICARE, OTHER ==
[~2018-12-31] VITALS: Ht 188 cm; Wt 133.9 kg
[~2018-12-31 13:15] MED LIST changes: -TRIA15CR3 TP; +TRIA15CR61 TP
--- NOTE | 2018-12-31 13:36 | NUR ---
ems tele strip w/ potential vtach placed on mounting strip and scanned into chart
--- NOTE | 2018-12-31 13:36 | NUR ---
weight on 310lb from standing scale
[2018-12-31 13:50] LABS: BASOPHILS # (AUTO) 0.02 x10^3/uL (0-0.1); BASOPHILS % (AUTO) 0 % (0-1); EOSINOPHILS # (AUTO) 0.55 x10^3/uL (0-0.4); EOSINOPHILS % (AUTO) 7 % (1-7); LYMPHOCYTES # (AUTO) 1.12 x10^3/uL (1-3.4); LYMPHOCYTES % (AUTO) 14 % (22-44); MD NO; MEAN CORPUSCULAR HEMOGLOBIN 30.5 pg (27.5-34.5); MEAN CORPUSCULAR HGB CONC 33.1 g/dL (33.2-36.2); MEAN CORPUSCULAR VOLUME 92.3 fL (81-97); MEAN PLATELET VOLUME 9.1 fL (7.4-10.4); MONOCYTES # (AUTO) 0.45 x10^3/uL (0.2-0.8); MONOCYTES % (AUTO) 6 % (2-9); NEUTROPHILS # (AUTO) 5.99 x10^3/uL (1.8-6.8); NEUTROPHILS % (AUTO) 74 % (42-75); PLATELET COUNT 198 x10^3/uL (130-400); RED BLOOD COUNT 4.48 x10^6/uL (4.38-5.82); RED CELL DISTRIBUTION WIDTH 16.6 % (9.4-14.8)
[2018-12-31 13:58] LABS: ALANINE AMINOTRANSFERASE 20 U/L (12-78); ALBUMIN 3.5 g/dL (3.4-5.0); ANION GAP 4 mmol/L (5-15); CALCIUM 9.1 mg/dL (8.5-10.1); CHLORIDE 110 mmol/L (98-107); CREATININE 1.38 mg/dL (0.7-1.3); INTERNATIONAL NORMALIZED RATIO 1.02 (0.93-1.1); PROTHROMBIN TIME 10.7 Seconds (9.6-11.5)
[2018-12-31 14:02] LABS: ALKALINE PHOSPHATASE 110 U/L (45-117); BILIRUBIN,TOTAL 0.5 mg/dL (0.2-1.0); FREE T4 (FREE THYROXINE) 1.31 ng/dL (0.76-1.46); TOTAL PROTEIN 7.5 g/dL (6.4-8.2); TROPONIN I 0.022 ng/mL (0.000-0.045)
--- NOTE | 2018-12-31 14:57 | NUR ---
PATIENT DEEPLY ASLEEP ON [facility]. DENIES COMPLIANTS OR RETURN OF CHEST PAIN WHILE AT REST. ATTEMPTED TO STAND X 2 TO OBTAIN URINE SAMPLE. PATIEN BECOME VERY DIZZY AND IS UNABLE TO REMAIN SITTING. NO VITAL SIGN CHANGES. TO PERFORM STRAIGHT CATH SHORTLY ON SHOE FOLDER/CALL GILL IN HAND/SIDE RAILS UP
--- NOTE | 2018-12-31 15:25 | NUR ---
LUNCH RN: Straight cath performed, pt tolerated procedure well. Urine sent to lab.
--- NOTE | 2018-12-31 15:30 | NUR ---
Dr. Stone at bedside to discuss ED findings and POC. Pt very drowsy, falling asleep during conversation, pt unable to recall dizziness during attempts to stand and urinate in urinal. Pt denies dizziness while lying on gurney. Pt O2 noted to be 91-92% on trial off of oxygen. Pt oxygen replaced at 2L NC, pt sats now 92-94%.
[2018-12-31] MEDS ORDERED: MECLIZINE CHEWABLE 25 MG TAB ONE (15:37)
--- NOTE | 2018-12-31 15:39 | NUR ---
LUNCH RN: Pt medicated per NOV.
[2018-12-31 15:56] LABS: MICROSCOPIC AUTO
[2018-12-31 15:59] LABS: CULTURE INDICATED? NO
[2018-12-31] MEDS ORDERED: MECLIZINE CHEWABLE 25 MG TAB PO ONE (16:00)
--- NOTE | 2018-12-31 16:40 | NUR ---
PATIENT BACK FROM CT CONTINUES TO DEEPLY SLEEP ON GURNERY VITAL STABLE ON THERAPY AIDE W/ 2L NC AWOKEN TO [id number] CONTINUED DIZZINESS WHEN HER MOVES HIS HEAD QUICKLY UPDATED W/ POC CALL GILL IN HAND/SIDE RAILS UP
--- NOTE | 2018-12-31 17:30 | NUR ---
PATIENT RESTING COMFORTABLY ON GURNEY/VSS ON TOOL PROCUREMENT COORDINATOR W/ 2L NC. CALL GILL IN HAND/ SIDE RAILS UP
[2018-12-31] MEDS ORDERED: SODIUM CHLORIDE FLUSH 10ML SYR IVF PRN (18:00)
[2018-12-31 19:42] VITALS: BP 151/76
[2018-12-31] MEDS ORDERED: MECLIZINE 25 MG TABLET PO PRN (20:30)
[2018-12-31] MEDS ORDERED: hydrALAzine 20 MG/ML, 1ML IVPush PRN (20:30)
[2018-12-31] MEDS ORDERED: ENALAPRILAT 1.25 MG/ML, 2ML IVPush PRN (20:30)
[2018-12-31] MEDS ORDERED: DOCUSATE 100 MG CAPSULE PO PRN (20:30)
[2018-12-31] MEDS ORDERED: ONDANSETRON ODT 4 MG PO PRN (20:30)
[2018-12-31] MEDS ORDERED: BISACODYL 10 MG SUPP PR PRN (20:30)
[2018-12-31] MEDS ORDERED: POLYETHYLENE GLYCOL 17 GM PACKET PO PRN (20:30)
[2018-12-31] MEDS ORDERED: GLUCAGON 1 MG IM PRN (21:00)
[2018-12-31] MEDS ORDERED: DEXTROSE 50%, 50ML SYRINGE IVPush PRN (21:00)
[2018-12-31] MEDS ORDERED: DEXTROSE 4 GM TAB.CHEW PO PRN (21:00)
[2018-12-31] MEDS: GABAPENTIN 300 MG CAPSULE PO SCH (21:07)
[2018-12-31] MEDS: REPAGLINIDE 2 MG TABLET PO SCH (21:07)
[2018-12-31] MEDS: APIXABAN 5 MG TABLET PO SCH (21:07)
[2018-12-31] MEDS: ATORVASTATIN 40 MG TABLET PO SCH (21:08)
[2018-12-31] MEDS: SODIUM CHLORIDE FLUSH 10ML SYR IVF SCH (21:08)
[2018-12-31] MEDS: TEMAZEPAM 7.5 MG HOMEMEDPO SCH (21:30)
[2018-12-31 21:52] LABS: TROPONIN I 0.016 ng/mL (0.000-0.045)
[2019-01-01 01:03] LABS: TROPONIN I 0.022 ng/mL (0.000-0.045)
[2019-01-01 01:30] VITALS: BP 179/80
[2019-01-01 06:00] LABS: BASOPHILS # (AUTO) 0.04 x10^3/uL (0-0.1); BASOPHILS % (AUTO) 1 % (0-1); EOSINOPHILS # (AUTO) 0.61 x10^3/uL (0-0.4); EOSINOPHILS % (AUTO) 11 % (1-7); LYMPHOCYTES # (AUTO) 1.32 x10^3/uL (1-3.4); LYMPHOCYTES % (AUTO) 25 % (22-44); MD NO; MEAN CORPUSCULAR HEMOGLOBIN 30.5 pg (27.5-34.5); MEAN CORPUSCULAR HGB CONC 32.9 g/dL (33.2-36.2); MEAN CORPUSCULAR VOLUME 92.7 fL (81-97); MEAN PLATELET VOLUME 9.1 fL (7.4-10.4); MONOCYTES % (AUTO) 7 % (2-9); NEUTROPHILS # (AUTO) 3.04 x10^3/uL (1.8-6.8); NEUTROPHILS % (AUTO) 56 % (42-75); PLATELET COUNT 166 x10^3/uL (130-400); RED BLOOD COUNT 4.24 x10^6/uL (4.38-5.82); RED CELL DISTRIBUTION WIDTH 16.7 % (9.4-14.8)
[2019-01-01 06:08] LABS: ANION GAP 3 mmol/L (5-15); CALCIUM 8.6 mg/dL (8.5-10.1); CHLORIDE 108 mmol/L (98-107); CREATININE 1.24 mg/dL (0.7-1.3)
[2019-01-01] MEDS: REPAGLINIDE 2 MG TABLET PO SCH ×2 (08:15→20:35)
[2019-01-01] MEDS: FINASTERIDE 5 MG TABLET PO SCH (08:15)
[2019-01-01] MEDS: SERTRALINE 100MG TABLET PO SCH (08:16)
[2019-01-01] MEDS: AMIODARONE 200 MG TABLET PO SCH (08:16)
[2019-01-01] MEDS: ALLOPURINOL 300 MG TABLET PO SCH (08:16)
[2019-01-01] MEDS: GABAPENTIN 300 MG CAPSULE PO SCH ×3 (08:16→20:35)
[2019-01-01] MEDS: APIXABAN 5 MG TABLET PO SCH ×2 (08:16→20:35)
[2019-01-01] MEDS: ASPIRIN 81 MG TABLET EC PO SCH (08:16)
[2019-01-01] MEDS: SODIUM CHLORIDE FLUSH 10ML SYR IVF SCH ×2 (08:17→21:19)
[2019-01-01 08:45] VITALS: BP 153/73
[2019-01-01] MEDS: INSULIN GLARGINE 100 UNITS/ML, PEN SQ-INSULIN SCH ×2 (08:52→12:52)
[2019-01-01] MEDS: INSULIN LISPRO 100 UNITS/ML, PEN SQ-INSULIN SCH ×3 (08:53→17:00)
[2019-01-01] MEDS ORDERED: CARVEDILOL 25 MG TABLET PO SCH (09:00)
[2019-01-01] MEDS ORDERED: LEVOTHYROXINE 75 MCG TABLET PO SCH (09:00)
[2019-01-01] MEDS: ACETAMINOPHEN 325 MG TABLET PO PRN ×2 (10:54→22:18)
[2019-01-01 12:41] VITALS: BP 123/78
[2019-01-01 20:03] VITALS: BP 158/88
[2019-01-01] MEDS: TEMAZEPAM 7.5 MG HOMEMEDPO SCH (20:35)
[2019-01-01] MEDS: ATORVASTATIN 40 MG TABLET PO SCH (20:35)
[2019-01-02 02:58] VITALS: BP 151/53
[2019-01-02] MEDS ORDERED: LEVOTHYROXINE 75 MCG TABLET PO SCH (06:00)
[2019-01-02 07:25] VITALS: BP 165/84
[2019-01-02] MEDS ORDERED: INSULIN GLARGINE 100 UNITS/ML, PEN SQ-INSULIN SCH (08:00)
[2019-01-02] MEDS ORDERED: INSULIN LISPRO 100 UNITS/ML, PEN SQ-INSULIN SCH (08:00)
[2019-01-02] MEDS: FINASTERIDE 5 MG TABLET PO SCH (08:46)
[2019-01-02] MEDS: REPAGLINIDE 2 MG TABLET PO SCH (08:46)
[2019-01-02] MEDS: ALLOPURINOL 300 MG TABLET PO SCH (08:47)
[2019-01-02] MEDS: AMIODARONE 200 MG TABLET PO SCH (08:47)
[2019-01-02] MEDS: GABAPENTIN 300 MG CAPSULE PO SCH (08:47)
[2019-01-02] MEDS: SODIUM CHLORIDE FLUSH 10ML SYR IVF SCH (08:47)
[2019-01-02] MEDS: ASPIRIN 81 MG TABLET EC PO SCH (08:47)
[2019-01-02] MEDS: SERTRALINE 100MG TABLET PO SCH (08:48)
[2019-01-02] MEDS: APIXABAN 5 MG TABLET PO SCH (08:53)
[2019-01-02] MEDS: INSULIN LISPRO 100 UNITS/ML, PEN SQ-INSULIN SCH ×2 (08:54→12:26)
[2019-01-02 13:29] VITALS: BP 127/79
[2019-01-02] MEDS ORDERED: CARVEDILOL 25 MG TABLET PO SCH (18:00)
[2020-01-02] MEDS ORDERED: INSULIN GLARGINE 100 UNITS/ML, PEN SQ-INSULIN SCH (17:00)
== END 2019-01-02 17:05 | disposition home or self-care (01) | DRG 149 ==
LOC: ED 14:17 → EDIP 17:51 → UNDOADMIN 17:51 → 4EST 20:08
PROVIDERS: ADMIT Student in an Organized Health Care Education/Training Program; ATTEND Student in an Organized Health Care Education/Training Program
PROC: 0T9B70Z Drainage of Bladder with Drainage Device, Via Natural or Artificial Opening (ICD-10-PCS; 2018-12-31)
PROC: 5A09357 Assistance with Respiratory Ventilation, Less than 24 Consecutive Hours, Continuous Positive Airway Pressure (ICD-10-PCS; principal; 2019-01-01)
DX: H81.10 Benign paroxysmal vertigo, unspecified ear (principal); J96.11 Chronic respiratory failure with hypoxia; I13.0 Hypertensive heart and chronic kidney disease with heart failure and stage 1 through stage 4 chronic kidney disease, or unspecified chronic kidney disease; I42.9 Cardiomyopathy, unspecified; E03.9 Hypothyroidism, unspecified; E11.22 Type 2 diabetes mellitus with diabetic chronic kidney disease; E11.51 Type 2 diabetes mellitus with diabetic peripheral angiopathy without gangrene; E11.65 Type 2 diabetes mellitus with hyperglycemia; E78.5 Hyperlipidemia, unspecified; F32.9 Major depressive disorder, single episode, unspecified; G47.33 Obstructive sleep apnea (adult) (pediatric); I25.10 Atherosclerotic heart disease of native coronary artery without angina pectoris; I48.91 Unspecified atrial fibrillation; I50.9 Heart failure, unspecified; I87.2 Venous insufficiency (chronic) (peripheral); I87.8 Other specified disorders of veins; J44.9 Chronic obstructive pulmonary disease, unspecified; N18.9 Chronic kidney disease, unspecified; Z79.01 Long term (current) use of anticoagulants; Z79.4 Long term (current) use of insulin; Z79.82 Long term (current) use of aspirin; I25.2 Old myocardial infarction; Z79.899 Other long term (current) drug therapy; Z86.14 Personal history of Methicillin resistant Staphylococcus aureus infection; Z86.72 Personal history of thrombophlebitis; Z87.891 Personal history of nicotine dependence; Z95.1 Presence of aortocoronary bypass graft; Z99.81 Dependence on supplemental oxygen
CPT/HCPCS: 36415; 70450; 71045; 80048; 80053; 81001; 82962; 84439; 84443; 84484; 85025; 85610; 85730; 93005; 94660; 99285; G0378; J1815

== ENCOUNTER 2019-03-06 14:24 | Inpatient (IN) | payer MEDICARE, OTHER ==
[~2019-03-06] VITALS: Ht 188 cm; Wt 131.0 kg
--- NOTE | 2019-03-06 14:44 | NUR ---
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
--- NOTE | 2019-03-06 14:44 | NUR ---
THIS IS A 83 Y/O MALE THAT ARRIVES TO THE ED VIA EMS WITH C/O OF GENERALIZED WEAKNESS THAT IS PROGRESSING. TODAY PT HAD CHEST PAIN THAT IS DESCRIBED PRESSURE AND IS ON LEFT SIDE. PT REPORTS ARTHRITIC PAIN TO RIGHT SIDE OF BACK. PT DENIES ANY TRUAMA AND BEING COMPLIENT WITH MEDICATIONS. PT HAS BILATERAL WOUNDS TO LOWER LEGS THAT APPEAR CELLULITIC IN NATURE. PT ON ARRIVAL PLACED ON ALL MONITORS AND EKG COMPLETED. PT APPEARS TO BE IN A TYPE 2 BLOCK AND IN AFIB ON OCCASION. PT ON O2 AND IS ALWAYS ON O2. PT HAD PIV CONFIDENTIAL INVESTIGATOR. AWAITING FURTHER ORDERS. CHEST PAIN 3-02/27. NO RADIATION.
--- NOTE | 2019-03-06 14:45 | NUR ---
PT REPORTS CP THAT STARTED TODAY AND GENERAL FEELINGS OF MALAISE THAT STARTED SEVERAL DAYS AGO. PT ATTACHED TO MONITOR AND SHOWS INTERMITTANT AFIB AND HEART BLOCK. PT STATES HE HAS A PACEMAER AND HX OF CHF, DIABETES, AND AN ACTIVE MRSA INFECTION.
[2019-03-06] MEDS ORDERED: APIX5TAB PO (14:58)
[2019-03-06] MEDS ORDERED: TOPI25CA PO (14:58)
[2019-03-06] MEDS ORDERED: ASPIRIN 81 MG TABLET CHEW PO ONE (15:00)
[2019-03-06] MEDS ORDERED: ASPIRIN 81 MG TABLET CHEW ONE (15:03)
[2019-03-06 15:21] LABS: BASOPHILS # (AUTO) 0.05 x10^3/uL (0-0.1); BASOPHILS % (AUTO) 1 % (0-1); EOSINOPHILS # (AUTO) 0.56 x10^3/uL (0-0.4); EOSINOPHILS % (AUTO) 9 % (1-7); LYMPHOCYTES # (AUTO) 1.34 x10^3/uL (1-3.4); LYMPHOCYTES % (AUTO) 21 % (22-44); MD NO; MEAN CORPUSCULAR HEMOGLOBIN 30.8 pg (27.5-34.5); MEAN CORPUSCULAR HGB CONC 32.3 g/dL (33.2-36.2); MEAN CORPUSCULAR VOLUME 95.5 fL (81-97); MONOCYTES # (AUTO) 0.49 x10^3/uL (0.2-0.8); MONOCYTES % (AUTO) 8 % (2-9); NEUTROPHILS # (AUTO) 4.01 x10^3/uL (1.8-6.8); NEUTROPHILS % (AUTO) 62 % (42-75); PLATELET COUNT 172 x10^3/uL (130-400); RED BLOOD COUNT 3.83 x10^6/uL (4.38-5.82); RED CELL DISTRIBUTION WIDTH 16.3 % (9.4-14.8)
[2019-03-06 15:33] LABS: ALBUMIN 2.8 g/dL (3.4-5.0); ANION GAP 5 mmol/L (5-15); CALCIUM 8.1 mg/dL (8.5-10.1); CHLORIDE 113 mmol/L (98-107)
[2019-03-06 15:39] LABS: ALANINE AMINOTRANSFERASE 12 U/L (12-78); ALKALINE PHOSPHATASE 84 U/L (45-117); BILIRUBIN,TOTAL 0.7 mg/dL (0.2-1.0); CREATININE 1.58 mg/dL (0.7-1.3); TOTAL PROTEIN 6.1 g/dL (6.4-8.2)
--- NOTE | 2019-03-06 15:55 | NUR ---
pt sleeping on gurney. labs are resulted and pt is up for recheck
--- NOTE | 2019-03-06 16:08 | NUR ---
ALL RESULTS BACK AT THIS TIME, PT TO BE ADMITTED TO [facility]
--- NOTE | 2019-03-06 16:18 | NUR ---
ER MD AND [facility] MD AT BEDSIDE TO UPDATE PT ON POC, RECOMMENDING PT BE ADMITTED TO [facility]
--- NOTE | 2019-03-06 16:46 | NUR ---
report given to CARLO burns on tele
[2019-03-06] MEDS ORDERED: NITROGLYCERIN 0.4 MG BOTTLE (25 TABS) SL PRN (17:00)
[2019-03-06] MEDS ORDERED: morphine SULFATE 10 MG/ML, 1ML IV PRN (17:00)
[2019-03-06] MEDS ORDERED: ACETAMINOPHEN 325 MG TABLET PO PRN (17:00)
[2019-03-06] MEDS ORDERED: NITROGLYCERIN 0.4 MG/SPRAY SL PRN (17:00)
[2019-03-06] MEDS ORDERED: GLUCAGON 1 MG IM PRN (17:30)
[2019-03-06] MEDS ORDERED: DEXTROSE 50%, 50ML SYRINGE IVPush PRN (17:30)
[2019-03-06] MEDS ORDERED: DEXTROSE 4 GM TAB.CHEW PO PRN (17:30)
[2019-03-06 17:44] LABS: TROPONIN I 0.057 ng/mL (0.000-0.045)
[2019-03-06 17:51] VITALS: BP 138/89
[2019-03-06] MEDS ORDERED: HEPARIN 5,000 UNITS/ML, 1ML IV PRN (18:00)
[2019-03-06] MEDS ORDERED: HEPARIN 5,000 UNITS/ML, 1ML IV ONE (18:00)
[2019-03-06] MEDS ORDERED: HEPARIN 25,000 UNITS/500ML PMX 500 ML IV PRN (18:00)
[2019-03-06 20:27] LABS: TROPONIN I 0.053 ng/mL (0.000-0.045)
[2019-03-06] MEDS ORDERED: TEMAZEPAM 7.5 MG PO SCH (21:00)
[2019-03-06] MEDS ORDERED: TEMAZEPAM 15 MG CAPSULE PO PRN (21:00)
[2019-03-06 22:03] VITALS: BP 139/104
[2019-03-06] MEDS: GABAPENTIN 300 MG CAPSULE PO SCH (22:07)
[2019-03-06] MEDS: ATORVASTATIN 40 MG TABLET PO SCH (22:07)
[2019-03-06] MEDS: SODIUM CHLORIDE FLUSH 10ML SYR IVF SCH ×2 (22:07)
[2019-03-06] MEDS: INSULIN LISPRO 100 UNITS/ML, PEN SQ-INSULIN SCH (22:33)
[2019-03-06] MEDS: INSULIN GLARGINE 100 UNITS/ML, PEN SQ-INSULIN SCH (22:34)
[2019-03-07 00:56] LABS: MEAN CORPUSCULAR HEMOGLOBIN 31.4 pg (27.5-34.5); MEAN CORPUSCULAR HGB CONC 32.1 g/dL (33.2-36.2); MEAN CORPUSCULAR VOLUME 97.6 fL (81-97); MEAN PLATELET VOLUME 8.4 fL (7.4-10.4); PLATELET COUNT 197 x10^3/uL (130-400); RED CELL DISTRIBUTION WIDTH 16.5 % (9.4-14.8)
[2019-03-07] MEDS ORDERED: HEPARIN 25,000 UNITS/500ML PMX 500 ML IV PRN (01:00)
[2019-03-07 01:06] LABS: ANION GAP 7 mmol/L (5-15); CALCIUM 8.1 mg/dL (8.5-10.1); CHLORIDE 111 mmol/L (98-107); CREATININE 1.52 mg/dL (0.7-1.3)
[2019-03-07 01:18] VITALS: BP 132/73
[2019-03-07] MEDS ORDERED: SODIUM CHLORIDE 0.9% 1,000 ML IV SCH (06:30)
[2019-03-07] MEDS: INSULIN LISPRO 100 UNITS/ML, PEN SQ-INSULIN SCH ×4 (07:00→22:32)
[2019-03-07 07:24] VITALS: BP 143/69
[2019-03-07] MEDS ORDERED: LEVOTHYROXINE 125 MCG TABLET ONE (08:12)
[2019-03-07 08:36] VITALS: BP 119/68
[2019-03-07] MEDS: ASPIRIN 81 MG TABLET EC PO SCH (08:38)
[2019-03-07] MEDS: TOPIRAMATE 25 MG TABLET PO SCH (08:38)
[2019-03-07] MEDS: AMIODARONE 200 MG TABLET PO SCH (08:39)
[2019-03-07] MEDS: GABAPENTIN 300 MG CAPSULE PO SCH ×2 (08:39→21:26)
[2019-03-07] MEDS: FINASTERIDE 5 MG TABLET PO SCH (08:39)
[2019-03-07] MEDS: APIXABAN 5 MG TABLET PO SCH ×2 (08:39→21:26)
[2019-03-07] MEDS: SODIUM CHLORIDE FLUSH 10ML SYR IVF SCH ×4 (08:40→21:27)
[2019-03-07] MEDS: SERTRALINE 100MG TABLET PO SCH (08:41)
[2019-03-07] MEDS: LEVOTHYROXINE 112 MCG TABLET PO SCH (08:41)
[2019-03-07] MEDS ORDERED: CARVEDILOL 25 MG TABLET PO SCH (09:00)
[2019-03-07] MEDS ORDERED: FLUT16SP24 NAS (12:28)
[2019-03-07 12:44] VITALS: BP 116/69
[2019-03-07 14:29] LABS: TROPONIN I 0.026 ng/mL (0.000-0.045)
[2019-03-07] MEDS: SODIUM CHLORIDE 0.9% 1,000 ML IV SCH (14:30)
[2019-03-07 15:38] VITALS: BP 102/64
[2019-03-07 20:13] LABS: TROPONIN I 0.029 ng/mL (0.000-0.045)
[2019-03-07] MEDS: FLUTICASONE NASAL SPRAY 16GM NAS SCH (21:00)
[2019-03-07] MEDS: CARVEDILOL 12.5 MG TABLET PO SCH (21:26)
[2019-03-07] MEDS: ATORVASTATIN 40 MG TABLET PO SCH (21:26)
[2019-03-07 21:31] VITALS: BP 110/66
[2019-03-07] MEDS: INSULIN GLARGINE 100 UNITS/ML, PEN SQ-INSULIN SCH (22:32)
[2019-03-08 00:53] VITALS: BP 124/79
[2019-03-08 02:48] LABS: TROPONIN I 0.032 ng/mL (0.000-0.045)
[2019-03-08 06:03] LABS: CALCIUM 7.9 mg/dL (8.5-10.1); CHLORIDE 112 mmol/L (98-107)
[2019-03-08 06:07] LABS: ANION GAP 7 mmol/L (5-15); CREATININE 1.47 mg/dL (0.7-1.3)
[2019-03-08] MEDS: SODIUM CHLORIDE 0.9% 1,000 ML IV SCH (06:44)
[2019-03-08 07:40] VITALS: BP 118/86
[2019-03-08] MEDS: INSULIN LISPRO 100 UNITS/ML, PEN SQ-INSULIN SCH ×4 (09:00→22:59)
[2019-03-08] MEDS: SODIUM CHLORIDE FLUSH 10ML SYR IVF SCH ×4 (09:00→22:40)
[2019-03-08] MEDS: FINASTERIDE 5 MG TABLET PO SCH (09:02)
[2019-03-08] MEDS: LEVOTHYROXINE 112 MCG TABLET PO SCH (09:02)
[2019-03-08] MEDS: GABAPENTIN 300 MG CAPSULE PO SCH ×2 (09:02→22:36)
[2019-03-08] MEDS: SERTRALINE 100MG TABLET PO SCH (09:03)
[2019-03-08] MEDS: CARVEDILOL 12.5 MG TABLET PO SCH ×2 (09:03→22:36)
[2019-03-08] MEDS: APIXABAN 5 MG TABLET PO SCH ×2 (09:03→22:36)
[2019-03-08] MEDS: TOPIRAMATE 25 MG TABLET PO SCH (09:03)
[2019-03-08] MEDS: AMIODARONE 200 MG TABLET PO SCH (09:03)
[2019-03-08] MEDS: ASPIRIN 81 MG TABLET EC PO SCH (09:03)
[2019-03-08 13:04] VITALS: BP 130/81
[2019-03-08 13:48] VITALS: BP 108/74
[2019-03-08] MEDS: FLUTICASONE NASAL SPRAY 16GM NAS SCH ×2 (16:56→22:36)
[2019-03-08 19:43] VITALS: BP 151/82
[2019-03-08] MEDS: ATORVASTATIN 40 MG TABLET PO SCH (22:36)
[2019-03-08] MEDS: INSULIN GLARGINE 100 UNITS/ML, PEN SQ-INSULIN SCH (22:59)
[2019-03-08 23:51] VITALS: BP 131/79
[2019-03-09 05:30] LABS: ALBUMIN 2.7 g/dL (3.4-5.0); ANION GAP 5 mmol/L (5-15); CALCIUM 7.9 mg/dL (8.5-10.1); CHLORIDE 109 mmol/L (98-107); MEAN CORPUSCULAR HEMOGLOBIN 31.1 pg (27.5-34.5); MEAN CORPUSCULAR VOLUME 97.3 fL (81-97); MEAN PLATELET VOLUME 8.4 fL (7.4-10.4); PLATELET COUNT 156 x10^3/uL (130-400); RED BLOOD COUNT 3.72 x10^6/uL (4.38-5.82); RED CELL DISTRIBUTION WIDTH 16.4 % (9.4-14.8)
[2019-03-09 05:31] LABS: CREATININE 1.47 mg/dL (0.7-1.3)
[2019-03-09 05:46] LABS: BASOPHILS # (AUTO) 0.07 x10^3/uL (0-0.1); BASOPHILS % (AUTO) 1 % (0-1); EOSINOPHILS # (AUTO) 0.56 x10^3/uL (0-0.4); EOSINOPHILS % (AUTO) 10 % (1-7); LYMPHOCYTES # (AUTO) 1.37 x10^3/uL (1-3.4); LYMPHOCYTES % (AUTO) 24 % (22-44); MD SCAN; MONOCYTES # (AUTO) 0.39 x10^3/uL (0.2-0.8); MONOCYTES % (AUTO) 7 % (2-9); NEUTROPHILS # (AUTO) 3.24 x10^3/uL (1.8-6.8); NEUTROPHILS % (AUTO) 58 % (42-75)
[2019-03-09 07:50] VITALS: BP 146/79
[2019-03-09] MEDS: INSULIN LISPRO 100 UNITS/ML, PEN SQ-INSULIN SCH ×4 (08:36→21:14)
[2019-03-09] MEDS: SERTRALINE 100MG TABLET PO SCH (09:19)
[2019-03-09] MEDS: TOPIRAMATE 25 MG TABLET PO SCH (09:19)
[2019-03-09] MEDS: GABAPENTIN 300 MG CAPSULE PO SCH ×2 (09:19→20:40)
[2019-03-09] MEDS: APIXABAN 5 MG TABLET PO SCH ×2 (09:19→20:40)
[2019-03-09] MEDS: FINASTERIDE 5 MG TABLET PO SCH (09:20)
[2019-03-09] MEDS: LEVOTHYROXINE 25 MCG TABLET PO SCH (09:20)
[2019-03-09] MEDS: AMIODARONE 200 MG TABLET PO SCH (09:20)
[2019-03-09] MEDS: CARVEDILOL 12.5 MG TABLET PO SCH ×2 (09:20→20:40)
[2019-03-09] MEDS: LEVOTHYROXINE 200 MCG TABLET PO SCH (09:20)
[2019-03-09] MEDS: ASPIRIN 81 MG TABLET EC PO SCH (09:20)
[2019-03-09] MEDS: SODIUM CHLORIDE FLUSH 10ML SYR IVF SCH ×4 (09:22→21:15)
[2019-03-09] MEDS: FLUTICASONE NASAL SPRAY 16GM NAS SCH ×2 (09:57→20:39)
[2019-03-09 10:09] VITALS: BP 135/92
[2019-03-09 10:11] VITALS: BP 109/75
[2019-03-09 10:13] VITALS: BP 130/80
[2019-03-09 13:45] VITALS: BP 132/80
[2019-03-09 20:35] VITALS: BP 148/83
[2019-03-09] MEDS: ATORVASTATIN 40 MG TABLET PO SCH (20:40)
[2019-03-09] MEDS: INSULIN GLARGINE 100 UNITS/ML, PEN SQ-INSULIN SCH (21:15)
[2019-03-10 01:52] VITALS: BP 120/80
[2019-03-10] MEDS: LEVOTHYROXINE 25 MCG TABLET PO SCH (06:42)
[2019-03-10] MEDS: LEVOTHYROXINE 200 MCG TABLET PO SCH (06:43)
[2019-03-10 07:09] VITALS: BP 123/76
[2019-03-10] MEDS: INSULIN LISPRO 100 UNITS/ML, PEN SQ-INSULIN SCH ×3 (08:35→16:59)
[2019-03-10] MEDS: TOPIRAMATE 25 MG TABLET PO SCH (08:35)
[2019-03-10] MEDS: FINASTERIDE 5 MG TABLET PO SCH (08:35)
[2019-03-10] MEDS: GABAPENTIN 300 MG CAPSULE PO SCH (08:35)
[2019-03-10] MEDS: ASPIRIN 81 MG TABLET EC PO SCH (08:35)
[2019-03-10] MEDS: SERTRALINE 100MG TABLET PO SCH (08:35)
[2019-03-10] MEDS: AMIODARONE 200 MG TABLET PO SCH (08:35)
[2019-03-10] MEDS: CARVEDILOL 12.5 MG TABLET PO SCH (08:35)
[2019-03-10] MEDS: APIXABAN 5 MG TABLET PO SCH (08:35)
[2019-03-10] MEDS: FLUTICASONE NASAL SPRAY 16GM NAS SCH (08:36)
[2019-03-10] MEDS: SODIUM CHLORIDE FLUSH 10ML SYR IVF SCH ×2 (08:38)
[2019-03-10] MEDS ORDERED: INSULIN GLARGINE 100 UNITS/ML, PEN SQ-INSULIN SCH ×2 (11:00→21:00)
[2019-03-10 12:43] VITALS: BP 103/68
== END 2019-03-10 20:09 | disposition home or self-care (01) | DRG 291 ==
LOC: ED 16:04 → EDIP 16:05 → ED 16:16 → 5SO 17:36
PROVIDERS: ADMIT Family Medicine; ATTEND Family Medicine
PROC: 5A09357 Assistance with Respiratory Ventilation, Less than 24 Consecutive Hours, Continuous Positive Airway Pressure (ICD-10-PCS; principal; 2019-03-07)
PROC: 5A09357 Assistance with Respiratory Ventilation, Less than 24 Consecutive Hours, Continuous Positive Airway Pressure (ICD-10-PCS; 2019-03-08)
PROC: 5A09357 Assistance with Respiratory Ventilation, Less than 24 Consecutive Hours, Continuous Positive Airway Pressure (ICD-10-PCS; 2019-03-09)
PROC: 5A09357 Assistance with Respiratory Ventilation, Less than 24 Consecutive Hours, Continuous Positive Airway Pressure (ICD-10-PCS; 2019-03-10)
DX: I13.0 Hypertensive heart and chronic kidney disease with heart failure and stage 1 through stage 4 chronic kidney disease, or unspecified chronic kidney disease (principal); I50.33 Acute on chronic diastolic (congestive) heart failure; I48.92 Unspecified atrial flutter; I95.9 Hypotension, unspecified; I65.02 Occlusion and stenosis of left vertebral artery; F32.9 Major depressive disorder, single episode, unspecified; G43.909 Migraine, unspecified, not intractable, without status migrainosus; Z66 Do not resuscitate; M10.9 Gout, unspecified; M19.90 Unspecified osteoarthritis, unspecified site; E03.9 Hypothyroidism, unspecified; E11.22 Type 2 diabetes mellitus with diabetic chronic kidney disease; E78.5 Hyperlipidemia, unspecified; E66.01 Morbid (severe) obesity due to excess calories; G47.00 Insomnia, unspecified; G47.30 Sleep apnea, unspecified; I25.10 Atherosclerotic heart disease of native coronary artery without angina pectoris; I48.91 Unspecified atrial fibrillation; I87.2 Venous insufficiency (chronic) (peripheral); J44.9 Chronic obstructive pulmonary disease, unspecified; K21.9 Gastro-esophageal reflux disease without esophagitis; N18.9 Chronic kidney disease, unspecified; N40.0 Benign prostatic hyperplasia without lower urinary tract symptoms; Z79.01 Long term (current) use of anticoagulants; Z79.4 Long term (current) use of insulin; Z86.14 Personal history of Methicillin resistant Staphylococcus aureus infection; Z86.72 Personal history of thrombophlebitis; Z87.891 Personal history of nicotine dependence; Z95.0 Presence of cardiac pacemaker; Z95.1 Presence of aortocoronary bypass graft; Z68.37 Body mass index [BMI] 37.0-37.9, adult
CPT/HCPCS: 36415; 70450; 71045; 80048; 80053; 80069; 82962; 83690; 83880; 84484; 85025; 85027; 85520; 93005; 93880; 94660; 99285; G0378; J1644; J1815; J7030

== ENCOUNTER 2019-03-26 17:34 | Inpatient (IN) | payer MEDICARE, OTHER ==
[~2019-03-26] VITALS: Ht 188 cm; Wt 113.5 kg
[~2019-03-26 17:34] MED LIST changes: +FLUT16SP24 NAS; +TOPI25CA PO
--- NOTE | 2019-03-26 17:45 | NUR ---
THIS IS A 83 YEAR OLD MALE WHO CAME IN BY AMBULANCE WITH HX OF PACER, AFIB, DM, CABG, CHF, BACK STIMULATOR. PT C.O OF LOWER ABDOMINAL PAIN 4-7/10, PAINFUL URINATION, AND CONSTIPATION. PT PLACED ON EVAPORATIVE COOLER INSTALLER, PACED AT 69, SP02 AT 2LNC (PT IS ON A HOME AT 2LNC) AT 98%, AND CYCLE VS.
[2019-03-26] MEDS ORDERED: BISACODYL 10 MG SUPP ONE ×2 (18:21)
[2019-03-26] MEDS ORDERED: MAGNESIUM CITRATE 300ML ORAL SOL ONE (18:21)
--- NOTE | 2019-03-26 18:22 | NUR ---
PT TO X RAY VIA CELINA
[2019-03-26] MEDS ORDERED: BISACODYL 10 MG SUPP PR SCH (18:30)
[2019-03-26] MEDS ORDERED: MAGNESIUM CITRATE 300ML ORAL SOL PO ONE (18:30)
--- NOTE | 2019-03-26 18:57 | NUR ---
REPORT RECIEVED FROM CARLO MANUEL
--- NOTE | 2019-03-26 19:01 | NUR ---
REPORT TO ANNA MATOS, PLAN OF CARE DISCUSSED
[2019-03-26 19:06] LABS: BASOPHILS # (AUTO) 0.02 x10^3/uL (0-0.1); BASOPHILS % (AUTO) 0 % (0-1); EOSINOPHILS # (AUTO) 0.17 x10^3/uL (0-0.4); EOSINOPHILS % (AUTO) 2 % (1-7); LYMPHOCYTES # (AUTO) 1.05 x10^3/uL (1-3.4); LYMPHOCYTES % (AUTO) 12 % (22-44); MD NO; MEAN CORPUSCULAR HEMOGLOBIN 31.2 pg (27.5-34.5); MEAN CORPUSCULAR HGB CONC 32.2 g/dL (33.2-36.2); MEAN PLATELET VOLUME 8.6 fL (7.4-10.4); MONOCYTES # (AUTO) 0.64 x10^3/uL (0.2-0.8); MONOCYTES % (AUTO) 8 % (2-9); NEUTROPHILS # (AUTO) 6.71 x10^3/uL (1.8-6.8); NEUTROPHILS % (AUTO) 78 % (42-75); PLATELET COUNT 195 x10^3/uL (130-400); RED BLOOD COUNT 4.53 x10^6/uL (4.38-5.82); RED CELL DISTRIBUTION WIDTH 15.5 % (9.4-14.8)
[2019-03-26 19:20] LABS: ALBUMIN 3.3 g/dL (3.4-5.0); ANION GAP 7 mmol/L (5-15); CHLORIDE 104 mmol/L (98-107)
[2019-03-26 19:22] LABS: MICROSCOPIC AUTO
[2019-03-26 19:24] LABS: ALANINE AMINOTRANSFERASE 15 U/L (12-78); ALKALINE PHOSPHATASE 110 U/L (45-117); BILIRUBIN,TOTAL 1.1 mg/dL (0.2-1.0); CREATININE 2.01 mg/dL (0.7-1.3); TOTAL PROTEIN 7.6 g/dL (6.4-8.2)
[2019-03-26 19:27] LABS: CULTURE INDICATED? NO
--- NOTE | 2019-03-26 19:30 | NUR ---
PT ABULATORY TO BEDSIDE CAMMODE TO ATTEMPT BM
--- NOTE | 2019-03-26 20:30 | NUR ---
pt was not able to have a bm, while on the bedside cammodel. pt back to jammie
--- NOTE | 2019-03-26 20:39 | NUR ---
PT TO CT
[2019-03-26] MEDS ORDERED: SODIUM CHLORIDE 0.9% 1,000 ML IV ONE (21:30)
--- NOTE | 2019-03-26 21:38 | NUR ---
report given to CARLO martin
[2019-03-26 22:20] VITALS: BP 176/84
[2019-03-26] MEDS ORDERED: hydrALAzine 20 MG/ML, 1ML IVPush PRN (22:30)
[2019-03-26] MEDS ORDERED: BISACODYL 10 MG SUPP PR PRN (22:30)
[2019-03-26] MEDS ORDERED: FINASTERIDE 5 MG TABLET PO SCH (23:30)
[2019-03-26] MEDS ORDERED: ATORVASTATIN 40 MG TABLET PO SCH (23:30)
[2019-03-26] MEDS ORDERED: CHOLECALCIFEROL 1,000 UNIT TABLET PO SCH (23:30)
[2019-03-26 23:33] VITALS: BP 161/71
[2019-03-27] MEDS ORDERED: ACETAMINOPHEN 325 MG TABLET PO PRN
[2019-03-27] MEDS ORDERED: ONDANSETRON 4 MG TABLET PO PRN
[2019-03-27] MEDS: CARVEDILOL 25 MG TABLET PO SCH ×2 (00:16→08:15)
[2019-03-27] MEDS: GABAPENTIN 300 MG CAPSULE PO SCH ×2 (00:16→08:15)
[2019-03-27] MEDS: APIXABAN 5 MG TABLET PO SCH ×2 (00:16→08:15)
[2019-03-27] MEDS: INSULIN LISPRO 100 UNITS/ML, PEN SQ-INSULIN SCH ×2 (00:20→11:58)
[2019-03-27] MEDS ORDERED: INSULIN GLARGINE 100 UNITS/ML, PEN SQ-INSULIN ONE (00:30)
[2019-03-27 03:40] VITALS: BP 124/72
[2019-03-27 06:15] LABS: ANION GAP 7 mmol/L (5-15); CALCIUM 8.7 mg/dL (8.5-10.1); CHLORIDE 106 mmol/L (98-107); CREATININE 1.98 mg/dL (0.7-1.3)
[2019-03-27] MEDS ORDERED: INSULIN GLARGINE 100 UNITS/ML, PEN SQ-INSULIN SCH (08:00)
[2019-03-27 08:12] VITALS: BP 127/71
[2019-03-27] MEDS: INSULIN GLARGINE 100 UNITS/ML, PEN SQ-INSULIN SCH ×2 (08:16→12:00)
[2019-03-27] MEDS ORDERED: CARVEDILOL 25 MG TABLET PO SCH (09:00)
[2019-03-27] MEDS ORDERED: APIXABAN 5 MG TABLET PO SCH (09:00)
[2019-03-27] MEDS ORDERED: FLUTICASONE NASAL SPRAY 16GM NAS SCH (09:00)
[2019-03-27] MEDS ORDERED: GABAPENTIN 300 MG CAPSULE PO SCH (09:00)
[2019-03-27] MEDS ORDERED: AMIODARONE 200 MG TABLET PO SCH (09:00)
[2019-03-27] MEDS ORDERED: TOPIRAMATE 25 MG TABLET PO SCH (09:00)
[2019-03-27] MEDS ORDERED: REPAGLINIDE 2 MG TABLET PO SCH (09:00)
[2019-03-27] MEDS ORDERED: ALLOPURINOL 300 MG TABLET PO SCH (09:00)
[2019-03-27] MEDS ORDERED: SENNA/DOCUSATE TABLET PO SCH (09:00)
[2019-03-27] MEDS ORDERED: SERTRALINE 100MG TABLET PO SCH (09:00)
[2019-03-27] MEDS ORDERED: LEVOTHYROXINE 150 MCG TABLET PO SCH (09:00)
[2019-03-27] MEDS ORDERED: ASPIRIN 81 MG TABLET EC PO SCH (09:00)
[2019-03-27 12:53] VITALS: BP 111/67
[2019-03-27] MEDS ORDERED: TEMAZEPAM 7.5 MG HOMEMEDPO SCH (21:00)
[2019-03-27] MEDS ORDERED: ATORVASTATIN 40 MG TABLET PO SCH (21:00)
[2019-03-27] MEDS ORDERED: FINASTERIDE 5 MG TABLET PO SCH (21:00)
[2019-03-27] MEDS ORDERED: CHOLECALCIFEROL 1,000 UNIT TABLET PO SCH (21:00)
== END 2019-03-27 15:02 | disposition home or self-care (01) | DRG 683 ==
LOC: ED 19:43 → EDIP 21:15 → 3NE 22:10
PROVIDERS: ADMIT Family Medicine; ATTEND Family Medicine
PROC: 5A09357 Assistance with Respiratory Ventilation, Less than 24 Consecutive Hours, Continuous Positive Airway Pressure (ICD-10-PCS; principal; 2019-03-26)
DX: N17.0 Acute kidney failure with tubular necrosis (principal); I13.0 Hypertensive heart and chronic kidney disease with heart failure and stage 1 through stage 4 chronic kidney disease, or unspecified chronic kidney disease; E46 Unspecified protein-calorie malnutrition; I42.9 Cardiomyopathy, unspecified; N13.2 Hydronephrosis with renal and ureteral calculous obstruction; E03.9 Hypothyroidism, unspecified; E11.22 Type 2 diabetes mellitus with diabetic chronic kidney disease; E11.40 Type 2 diabetes mellitus with diabetic neuropathy, unspecified; G47.00 Insomnia, unspecified; G47.33 Obstructive sleep apnea (adult) (pediatric); I25.10 Atherosclerotic heart disease of native coronary artery without angina pectoris; I48.91 Unspecified atrial fibrillation; I50.9 Heart failure, unspecified; I87.2 Venous insufficiency (chronic) (peripheral); J44.9 Chronic obstructive pulmonary disease, unspecified; N18.3 Chronic kidney disease, stage 3 (moderate); N40.0 Benign prostatic hyperplasia without lower urinary tract symptoms; Z66 Do not resuscitate; F32.9 Major depressive disorder, single episode, unspecified; Z68.32 Body mass index [BMI] 32.0-32.9, adult; I25.2 Old myocardial infarction; Z95.1 Presence of aortocoronary bypass graft; Z95.0 Presence of cardiac pacemaker; Z82.49 Family history of ischemic heart disease and other diseases of the circulatory system; Z80.9 Family history of malignant neoplasm, unspecified; Z83.3 Family history of diabetes mellitus
CPT/HCPCS: 36415; 74021; 74176; 80048; 80053; 81001; 82962; 83690; 84443; 85025; 93005; 94660; 99285; G0378; J1815

== ENCOUNTER 2019-07-23 11:34 | Inpatient (IN) | payer MEDICARE, OTHER ==
[~2019-07-23] VITALS: Ht 188 cm; Wt 127.5 kg
[~2019-07-23 11:34] MED LIST changes: -TOPI25CA PO; +TOPI25CA3 PO
--- NOTE | 2019-07-23 11:51 | NUR ---
REPORT RECEIVED FROM ZHANNA MATOS. ASSUMING CARE AT THIS TIME.
[2019-07-23] MEDS ORDERED: ACETAMINOPHEN 500 MG TABLET PO ONE (12:00)
[2019-07-23 12:33] LABS: BASOPHILS # (AUTO) 0.08 x10^3/uL (0-0.1); BASOPHILS % (AUTO) 1 % (0-1); EOSINOPHILS # (AUTO) 0.28 x10^3/uL (0-0.4); EOSINOPHILS % (AUTO) 4 % (1-7); LYMPHOCYTES % (AUTO) 15 % (22-44); MD NO; MEAN CORPUSCULAR HEMOGLOBIN 30.8 pg (27.5-34.5); MEAN CORPUSCULAR HGB CONC 32.4 g/dL (33.2-36.2); MEAN PLATELET VOLUME 10.3 fL (7.4-10.4); MONOCYTES # (AUTO) 0.43 x10^3/uL (0.2-0.8); MONOCYTES % (AUTO) 6 % (2-9); NEUTROPHILS # (AUTO) 5.42 x10^3/uL (1.8-6.8); NEUTROPHILS % (AUTO) 74 % (42-75); PLATELET COUNT 153 x10^3/uL (130-400); RED BLOOD COUNT 4.55 x10^6/uL (4.38-5.82); RED CELL DISTRIBUTION WIDTH 15.9 % (9.4-14.8)
[2019-07-23 12:39] LABS: ALBUMIN 3.3 g/dL (3.4-5.0); ANION GAP 6 mmol/L (5-15); CALCIUM 8.5 mg/dL (8.5-10.1); CHLORIDE 109 mmol/L (98-107)
[2019-07-23 12:46] LABS: ALANINE AMINOTRANSFERASE 10 U/L (12-78); ALKALINE PHOSPHATASE 108 U/L (45-117); BILIRUBIN,TOTAL 0.6 mg/dL (0.2-1.0); CREATININE 2.93 mg/dL (0.7-1.3); TROPONIN I < 0.015 ng/mL (0.000-0.045)
--- NOTE | 2019-07-23 12:52 | NUR ---
PT TAKEN TO CT
[2019-07-23 12:59] LABS: INTERNATIONAL NORMALIZED RATIO 1.01 (0.93-1.1); PROTHROMBIN TIME 10.6 Seconds (9.6-11.5)
[2019-07-23] MEDS ORDERED: ACETAMINOPHEN 500 MG TABLET ONE (13:01)
--- NOTE | 2019-07-23 13:28 | NUR ---
ALL RESULTS ARE BACK AT THIS TIME. CHART UP FOR RECHECK.
--- NOTE | 2019-07-23 14:59 | NUR ---
REPORT GIVEN TO LEAH MATOS
[2019-07-23] MEDS: SODIUM CHLORIDE 0.9% 1,000 ML IV SCH ×2 (15:01→21:16)
[2019-07-23] MEDS ORDERED: HEPARIN 5,000 UNITS/ML, 1ML SQ SCH (15:30)
[2019-07-23] MEDS ORDERED: ACETAMINOPHEN 325 MG TABLET PO PRN (15:30)
[2019-07-23] MEDS ORDERED: ENALAPRILAT 1.25 MG/ML, 2ML IVPush PRN (15:30)
[2019-07-23] MEDS ORDERED: hydrALAzine 20 MG/ML, 1ML IVPush PRN (15:30)
[2019-07-23 15:59] VITALS: BP 108/89
[2019-07-23] MEDS ORDERED: INSULIN GLARGINE 100 UNITS/ML, PEN SQ-INSULIN SCH (17:00)
[2019-07-23 20:44] VITALS: BP 122/64
[2019-07-23] MEDS: TEMAZEPAM 7.5 MG PO SCH (21:00)
[2019-07-23] MEDS: FLUTICASONE NASAL SPRAY 16GM NAS SCH (21:00)
[2019-07-23] MEDS: APIXABAN 5 MG TABLET PO SCH (21:53)
[2019-07-23] MEDS: FINASTERIDE 5 MG TABLET PO SCH (21:53)
[2019-07-23] MEDS: CARVEDILOL 25 MG TABLET PO SCH (21:53)
[2019-07-23] MEDS: ATORVASTATIN 40 MG TABLET PO SCH (21:53)
[2019-07-24 01:37] VITALS: BP 140/73
[2019-07-24] MEDS: SODIUM CHLORIDE 0.9% 1,000 ML IV SCH ×4 (04:12→21:00)
[2019-07-24 04:14] LABS: CHLORIDE,URINE RANDOM 42 mmol/L; POTASSIUM,URINE RANDOM 14 mmol/L; SODIUM,URINE RANDOM 41 mmol/L
[2019-07-24] MEDS ORDERED: LEVOTHYROXINE 150 MCG TABLET ONE (04:14)
[2019-07-24] MEDS: LEVOTHYROXINE 75 MCG TABLET PO SCH (04:15)
[2019-07-24 04:17] LABS: MICROSCOPIC INDICATED
[2019-07-24 04:38] LABS: CULTURE INDICATED? NO
[2019-07-24 05:18] LABS: ANION GAP 6 mmol/L (5-15); CALCIUM 8.1 mg/dL (8.5-10.1); CHLORIDE 107 mmol/L (98-107)
[2019-07-24 05:20] LABS: CREATININE 3.56 mg/dL (0.7-1.3)
[2019-07-24 05:23] LABS: BASOPHILS # (AUTO) 0.02 x10^3/uL (0-0.1); BASOPHILS % (AUTO) 0 % (0-1); EOSINOPHILS # (AUTO) 0.19 x10^3/uL (0-0.4); EOSINOPHILS % (AUTO) 3 % (1-7); LYMPHOCYTES # (AUTO) 1.03 x10^3/uL (1-3.4); LYMPHOCYTES % (AUTO) 14 % (22-44); MD NO; MEAN CORPUSCULAR HEMOGLOBIN 30.6 pg (27.5-34.5); MEAN CORPUSCULAR HGB CONC 32.4 g/dL (33.2-36.2); MEAN CORPUSCULAR VOLUME 94.5 fL (81-97); MEAN PLATELET VOLUME 10.7 fL (7.4-10.4); MONOCYTES # (AUTO) 0.29 x10^3/uL (0.2-0.8); MONOCYTES % (AUTO) 4 % (2-9); NEUTROPHILS # (AUTO) 5.66 x10^3/uL (1.8-6.8); NEUTROPHILS % (AUTO) 79 % (42-75); PLATELET COUNT 118 x10^3/uL (130-400); RED BLOOD COUNT 4.22 x10^6/uL (4.38-5.82); RED CELL DISTRIBUTION WIDTH 15.4 % (9.4-14.8)
[2019-07-24] MEDS: INSULIN LISPRO 100 UNITS/ML, PEN SQ-INSULIN SCH ×4 (07:00→20:41)
[2019-07-24 07:34] VITALS: BP 130/58
[2019-07-24] MEDS: FLUTICASONE NASAL SPRAY 16GM NAS SCH ×2 (09:12→20:42)
[2019-07-24] MEDS: APIXABAN 5 MG TABLET PO SCH ×2 (09:12→20:42)
[2019-07-24] MEDS: TOPIRAMATE 25 MG TABLET PO SCH (09:12)
[2019-07-24] MEDS: SERTRALINE 100MG TABLET PO SCH (09:12)
[2019-07-24] MEDS: CARVEDILOL 25 MG TABLET PO SCH ×2 (09:13→20:42)
[2019-07-24] MEDS: ASPIRIN 81 MG TABLET EC PO SCH (09:13)
[2019-07-24] MEDS: AMIODARONE 200 MG TABLET PO SCH (09:13)
[2019-07-24] MEDS: OMEGA-3/FISH OIL CAPSULE PO SCH (09:13)
[2019-07-24] MEDS: INSULIN GLARGINE 100 UNITS/ML, PEN SQ-INSULIN SCH ×2 (11:53→17:05)
[2019-07-24 11:58] LABS: ANION GAP 5 mmol/L (5-15); CALCIUM 8.1 mg/dL (8.5-10.1); CHLORIDE 109 mmol/L (98-107)
[2019-07-24 12:41] VITALS: BP 112/61
[2019-07-24 19:22] VITALS: BP 139/73
[2019-07-24] MEDS: FINASTERIDE 5 MG TABLET PO SCH (20:41)
[2019-07-24] MEDS: ATORVASTATIN 40 MG TABLET PO SCH (20:42)
[2019-07-24] MEDS: TEMAZEPAM 7.5 MG PO SCH (20:43)
[2019-07-25 02:45] VITALS: BP 120/80
[2019-07-25] MEDS: SODIUM CHLORIDE 0.9% 1,000 ML IV SCH ×2 (03:44→17:40)
[2019-07-25 05:03] LABS: BASOPHILS # (AUTO) 0.03 x10^3/uL (0-0.1); BASOPHILS % (AUTO) 1 % (0-1); EOSINOPHILS # (AUTO) 0.26 x10^3/uL (0-0.4); EOSINOPHILS % (AUTO) 4 % (1-7); LYMPHOCYTES # (AUTO) 1.36 x10^3/uL (1-3.4); LYMPHOCYTES % (AUTO) 20 % (22-44); MD NO; MEAN CORPUSCULAR HEMOGLOBIN 30.3 pg (27.5-34.5); MEAN CORPUSCULAR HGB CONC 32.2 g/dL (33.2-36.2); MEAN CORPUSCULAR VOLUME 94.2 fL (81-97); MEAN PLATELET VOLUME 9.9 fL (7.4-10.4); MONOCYTES # (AUTO) 0.44 x10^3/uL (0.2-0.8); MONOCYTES % (AUTO) 7 % (2-9); NEUTROPHILS # (AUTO) 4.59 x10^3/uL (1.8-6.8); NEUTROPHILS % (AUTO) 69 % (42-75); PLATELET COUNT 126 x10^3/uL (130-400); RED BLOOD COUNT 3.98 x10^6/uL (4.38-5.82); RED CELL DISTRIBUTION WIDTH 15.9 % (9.4-14.8)
[2019-07-25 05:12] LABS: ANION GAP 6 mmol/L (5-15); CALCIUM 7.8 mg/dL (8.5-10.1); CHLORIDE 111 mmol/L (98-107)
[2019-07-25 05:14] LABS: CREATININE 4.37 mg/dL (0.7-1.3)
[2019-07-25] MEDS: LEVOTHYROXINE 75 MCG TABLET PO SCH (05:22)
[2019-07-25] MEDS ORDERED: DEXTROSE 50%, 50ML SYRINGE IVPush PRN (06:00)
[2019-07-25] MEDS ORDERED: GLUCAGON 1 MG IM PRN (06:00)
[2019-07-25] MEDS ORDERED: DEXTROSE 4 GM TAB.CHEW PO PRN (06:00)
[2019-07-25] MEDS: INSULIN LISPRO 100 UNITS/ML, PEN SQ-INSULIN SCH ×4 (08:04→20:46)
[2019-07-25 08:23] VITALS: BP 130/69
[2019-07-25] MEDS: SODIUM CHLORIDE FLUSH 10ML SYR IVF SCH ×2 (09:46→20:45)
[2019-07-25] MEDS: APIXABAN 5 MG TABLET PO SCH ×2 (09:46→20:46)
[2019-07-25] MEDS: OMEGA-3/FISH OIL CAPSULE PO SCH (09:46)
[2019-07-25] MEDS: TOPIRAMATE 25 MG TABLET PO SCH (09:46)
[2019-07-25] MEDS: ASPIRIN 81 MG TABLET EC PO SCH (09:46)
[2019-07-25] MEDS: CARVEDILOL 25 MG TABLET PO SCH ×2 (09:46→20:47)
[2019-07-25] MEDS: AMIODARONE 200 MG TABLET PO SCH (09:46)
[2019-07-25] MEDS: SERTRALINE 100MG TABLET PO SCH (09:46)
[2019-07-25] MEDS: FLUTICASONE NASAL SPRAY 16GM NAS SCH ×2 (09:50→20:47)
[2019-07-25] MEDS ORDERED: ALUMINUM/MAG/SIMETHICONE 30 ML UDC PO PRN (11:00)
[2019-07-25] MEDS: TAMSULOSIN 0.4 MG CAP.ER.24H PO SCH (11:12)
[2019-07-25] MEDS: OMEPRAZOLE 20 MG CAPSULE.DR PO SCH (11:13)
[2019-07-25 12:25] LABS: HCT (SEDRATE) 39.5 % (39.2-51.8)
[2019-07-25 14:04] VITALS: BP 136/61
[2019-07-25 19:31] VITALS: BP 146/82
[2019-07-25] MEDS: ATORVASTATIN 40 MG TABLET PO SCH (20:46)
[2019-07-25] MEDS: FINASTERIDE 5 MG TABLET PO SCH (20:47)
[2019-07-25] MEDS: TEMAZEPAM 7.5 MG PO SCH (20:47)
[2019-07-26] MEDS: SODIUM CHLORIDE 0.9% 1,000 ML IV SCH (02:28)
[2019-07-26 03:08] VITALS: BP 128/61
[2019-07-26] MEDS: OMEPRAZOLE 20 MG CAPSULE.DR PO SCH (05:20)
[2019-07-26] MEDS: LEVOTHYROXINE 75 MCG TABLET PO SCH (05:20)
[2019-07-26 06:09] LABS: ANION GAP 8 mmol/L (5-15); CALCIUM 8.1 mg/dL (8.5-10.1); CHLORIDE 112 mmol/L (98-107)
[2019-07-26 06:12] LABS: CREATININE 5.07 mg/dL (0.7-1.3)
[2019-07-26] MEDS: INSULIN LISPRO 100 UNITS/ML, PEN SQ-INSULIN SCH ×4 (07:00→20:24)
[2019-07-26 07:54] VITALS: BP 120/60
[2019-07-26] MEDS: ASPIRIN 81 MG TABLET EC PO SCH (09:20)
[2019-07-26] MEDS: OMEGA-3/FISH OIL CAPSULE PO SCH (09:20)
[2019-07-26] MEDS: TOPIRAMATE 25 MG TABLET PO SCH (09:21)
[2019-07-26] MEDS: AMIODARONE 200 MG TABLET PO SCH (09:21)
[2019-07-26] MEDS: TAMSULOSIN 0.4 MG CAP.ER.24H PO SCH (09:21)
[2019-07-26] MEDS: SERTRALINE 100MG TABLET PO SCH (09:22)
[2019-07-26] MEDS: CARVEDILOL 25 MG TABLET PO SCH ×2 (09:23→20:23)
[2019-07-26] MEDS: FLUTICASONE NASAL SPRAY 16GM NAS SCH ×2 (09:26→20:23)
[2019-07-26] MEDS: SODIUM CHLORIDE FLUSH 10ML SYR IVF SCH ×2 (09:28→20:24)
[2019-07-26] MEDS: APIXABAN 5 MG TABLET PO SCH (09:54)
[2019-07-26 13:54] VITALS: BP 140/76
[2019-07-26] MEDS ORDERED: SODIUM CHLORIDE 0.9% 1,000 ML IV SCH (15:01)
[2019-07-26 18:53] LABS: CREATININE,URINE RANDOM 42.5 mg/dL
[2019-07-26 19:06] VITALS: BP 141/79
[2019-07-26] MEDS: FINASTERIDE 5 MG TABLET PO SCH (20:23)
[2019-07-26] MEDS: APIXABAN 2.5 MG TABLET PO SCH (20:23)
[2019-07-26] MEDS: ATORVASTATIN 40 MG TABLET PO SCH (20:23)
[2019-07-26] MEDS: TEMAZEPAM 7.5 MG PO SCH (20:24)
[2019-07-26] MEDS ORDERED: INSULIN GLARGINE 100 UNITS/ML, PEN SQ-INSULIN SCH (21:00)
[2019-07-26 23:59] VITALS: BP 150/76
[2019-07-27 03:12] VITALS: BP 124/65
[2019-07-27] MEDS: OMEPRAZOLE 20 MG CAPSULE.DR PO SCH (05:05)
[2019-07-27] MEDS: LEVOTHYROXINE 75 MCG TABLET PO SCH (05:06)
[2019-07-27] MEDS: INSULIN LISPRO 100 UNITS/ML, PEN SQ-INSULIN SCH ×4 (07:00→21:48)
[2019-07-27 08:12] LABS: ANION GAP 8 mmol/L (5-15); CALCIUM 8.2 mg/dL (8.5-10.1); CHLORIDE 112 mmol/L (98-107)
[2019-07-27 08:26] LABS: CREATININE 6.01 mg/dL (0.7-1.3)
[2019-07-27] MEDS: FLUTICASONE NASAL SPRAY 16GM NAS SCH ×3 (09:00→21:48)
[2019-07-27] MEDS: SODIUM CHLORIDE FLUSH 10ML SYR IVF SCH ×2 (09:00→21:49)
[2019-07-27] MEDS: ASPIRIN 81 MG TABLET EC PO SCH (09:37)
[2019-07-27] MEDS: TOPIRAMATE 25 MG TABLET PO SCH (09:37)
[2019-07-27] MEDS: APIXABAN 2.5 MG TABLET PO SCH ×2 (09:37→21:48)
[2019-07-27] MEDS: AMIODARONE 200 MG TABLET PO SCH (09:37)
[2019-07-27] MEDS: SERTRALINE 100MG TABLET PO SCH (09:37)
[2019-07-27] MEDS: TAMSULOSIN 0.4 MG CAP.ER.24H PO SCH (09:37)
[2019-07-27] MEDS: OMEGA-3/FISH OIL CAPSULE PO SCH (09:38)
[2019-07-27] MEDS: CARVEDILOL 25 MG TABLET PO SCH ×2 (09:40→21:47)
[2019-07-27 09:48] VITALS: BP 138/78
[2019-07-27 14:05] LABS: ANA SCREEN POSITIVE (Negative)
[2019-07-27 14:06] LABS: ANTI-NUCLEAR ANTIBODY PATTERN SPECKLED
[2019-07-27 14:45] VITALS: BP 109/62
[2019-07-27 19:35] VITALS: BP 151/79
[2019-07-27] MEDS: TEMAZEPAM 7.5 MG PO SCH (21:00)
[2019-07-27] MEDS: ATORVASTATIN 40 MG TABLET PO SCH (21:47)
[2019-07-27] MEDS: FINASTERIDE 5 MG TABLET PO SCH (21:47)
[2019-07-28 01:17] VITALS: BP 156/77
[2019-07-28 03:25] LABS: ANION GAP 5 mmol/L (5-15); CALCIUM 8.2 mg/dL (8.5-10.1); CHLORIDE 109 mmol/L (98-107); CREATININE 5.06 mg/dL (0.7-1.3)
[2019-07-28] MEDS: OMEPRAZOLE 20 MG CAPSULE.DR PO SCH (05:54)
[2019-07-28] MEDS: LEVOTHYROXINE 75 MCG TABLET PO SCH (05:54)
[2019-07-28] MEDS: INSULIN LISPRO 100 UNITS/ML, PEN SQ-INSULIN SCH ×4 (08:56→21:16)
[2019-07-28] MEDS: ASPIRIN 81 MG TABLET EC PO SCH (08:56)
[2019-07-28] MEDS: TOPIRAMATE 25 MG TABLET PO SCH (08:56)
[2019-07-28] MEDS: APIXABAN 2.5 MG TABLET PO SCH ×2 (08:56→21:14)
[2019-07-28] MEDS: SERTRALINE 100MG TABLET PO SCH (08:56)
[2019-07-28] MEDS: OMEGA-3/FISH OIL CAPSULE PO SCH (08:57)
[2019-07-28] MEDS: FLUTICASONE NASAL SPRAY 16GM NAS SCH ×2 (09:00→21:15)
[2019-07-28] MEDS: SODIUM CHLORIDE FLUSH 10ML SYR IVF SCH ×2 (09:00→21:15)
[2019-07-28 10:12] VITALS: BP 119/59
[2019-07-28] MEDS ORDERED: ALBUTEROL/IPRATROPIUM 2.5MG/0.5MG, 3 ML NPPB PRN (10:30)
[2019-07-28] MEDS: DOCUSATE 100 MG CAPSULE PO SCH ×2 (12:42→21:15)
[2019-07-28] MEDS: CARVEDILOL 25 MG TABLET PO SCH ×2 (12:43→21:14)
[2019-07-28] MEDS: AMIODARONE 200 MG TABLET PO SCH (12:43)
[2019-07-28] MEDS: TAMSULOSIN 0.4 MG CAP.ER.24H PO SCH (12:43)
[2019-07-28 15:08] VITALS: BP 119/57
[2019-07-28 18:53] VITALS: BP 118/61
[2019-07-28] MEDS ORDERED: TEMAZEPAM 15 MG CAPSULE PO SCH (21:00)
[2019-07-28] MEDS: FINASTERIDE 5 MG TABLET PO SCH (21:15)
[2019-07-28] MEDS: ATORVASTATIN 40 MG TABLET PO SCH (21:15)
[2019-07-29 00:36] VITALS: BP 132/69
[2019-07-29] MEDS: LEVOTHYROXINE 75 MCG TABLET PO SCH (05:13)
[2019-07-29] MEDS: OMEPRAZOLE 20 MG CAPSULE.DR PO SCH (05:13)
[2019-07-29 05:40] LABS: ANION GAP 7 mmol/L (5-15); CALCIUM 7.9 mg/dL (8.5-10.1); CHLORIDE 105 mmol/L (98-107); CREATININE 4.52 mg/dL (0.7-1.3)
[2019-07-29] MEDS: INSULIN REGULAR 100 UNITS/ML, 3ML VIAL SQ-INSULIN SCH ×3 (07:00→16:00)
[2019-07-29 08:00] VITALS: BP 139/70
[2019-07-29] MEDS: INSULIN LISPRO 100 UNITS/ML, PEN SQ-INSULIN SCH ×4 (08:57→20:13)
[2019-07-29] MEDS: SERTRALINE 100MG TABLET PO SCH (08:58)
[2019-07-29] MEDS: OMEGA-3/FISH OIL CAPSULE PO SCH (08:58)
[2019-07-29] MEDS: INSULIN GLARGINE 100 UNITS/ML, PEN SQ-INSULIN SCH ×2 (08:58→20:13)
[2019-07-29] MEDS: CARVEDILOL 25 MG TABLET PO SCH ×2 (08:58→20:12)
[2019-07-29] MEDS: APIXABAN 2.5 MG TABLET PO SCH ×2 (08:58→20:12)
[2019-07-29] MEDS: TOPIRAMATE 25 MG TABLET PO SCH (08:58)
[2019-07-29] MEDS: ASPIRIN 81 MG TABLET EC PO SCH (08:58)
[2019-07-29] MEDS: SODIUM CHLORIDE FLUSH 10ML SYR IVF SCH ×2 (08:59→20:14)
[2019-07-29] MEDS: FLUTICASONE NASAL SPRAY 16GM NAS SCH ×2 (08:59→20:13)
[2019-07-29] MEDS: AMIODARONE 200 MG TABLET PO SCH (08:59)
[2019-07-29] MEDS: DOCUSATE 100 MG CAPSULE PO SCH ×2 (08:59→20:12)
[2019-07-29] MEDS: TAMSULOSIN 0.4 MG CAP.ER.24H PO SCH (09:00)
[2019-07-29 15:24] VITALS: BP 115/61
[2019-07-29] MEDS: TEMAZEPAM MC SCH (17:30)
[2019-07-29 18:50] VITALS: BP 134/63
[2019-07-29] MEDS: ATORVASTATIN 40 MG TABLET PO SCH (20:12)
[2019-07-29] MEDS: FINASTERIDE 5 MG TABLET PO SCH (20:12)
[2019-07-29] MEDS ORDERED: TEMAZEPAM 15 MG CAPSULE PO SCH (21:00)
[2019-07-30 00:32] VITALS: BP 137/69
[2019-07-30] MEDS: TEMAZEPAM MC SCH ×3 (01:01→17:30)
[2019-07-30] MEDS: OMEPRAZOLE 20 MG CAPSULE.DR PO SCH (05:28)
[2019-07-30] MEDS: LEVOTHYROXINE 75 MCG TABLET PO SCH (05:29)
[2019-07-30 06:05] LABS: ANION GAP 4 mmol/L (5-15); CALCIUM 8.1 mg/dL (8.5-10.1); CHLORIDE 106 mmol/L (98-107)
[2019-07-30 06:06] LABS: CREATININE 4.02 mg/dL (0.7-1.3)
[2019-07-30 08:05] VITALS: BP 140/75
[2019-07-30] MEDS: INSULIN LISPRO 100 UNITS/ML, PEN SQ-INSULIN SCH ×4 (08:17→20:26)
[2019-07-30] MEDS: INSULIN REGULAR 100 UNITS/ML, 3ML VIAL SQ-INSULIN SCH ×2 (08:18→11:32)
[2019-07-30] MEDS: SODIUM CHLORIDE FLUSH 10ML SYR IVF SCH ×2 (09:00→20:41)
[2019-07-30] MEDS: FLUTICASONE NASAL SPRAY 16GM NAS SCH ×2 (09:00→20:41)
[2019-07-30] MEDS: TAMSULOSIN 0.4 MG CAP.ER.24H PO SCH (09:33)
[2019-07-30] MEDS: AMIODARONE 200 MG TABLET PO SCH (09:33)
[2019-07-30] MEDS: ASPIRIN 81 MG TABLET EC PO SCH (09:33)
[2019-07-30] MEDS: DOCUSATE 100 MG CAPSULE PO SCH ×2 (09:33→20:25)
[2019-07-30] MEDS: CARVEDILOL 25 MG TABLET PO SCH ×2 (09:33→20:24)
[2019-07-30] MEDS: TOPIRAMATE 25 MG TABLET PO SCH (09:33)
[2019-07-30] MEDS: OMEGA-3/FISH OIL CAPSULE PO SCH (09:33)
[2019-07-30] MEDS: SERTRALINE 100MG TABLET PO SCH (09:34)
[2019-07-30] MEDS: INSULIN GLARGINE 100 UNITS/ML, PEN SQ-INSULIN SCH ×2 (10:24→20:26)
[2019-07-30 15:51] VITALS: BP 132/65
[2019-07-30] MEDS ORDERED: INSULIN LISPRO 100 UNIT/ML, 3ML VIAL SQ-INSULIN SCH (16:00)
[2019-07-30 19:13] VITALS: BP 159/93
[2019-07-30] MEDS: FINASTERIDE 5 MG TABLET PO SCH (20:25)
[2019-07-30] MEDS: ATORVASTATIN 40 MG TABLET PO SCH (20:25)
[2019-07-31] MEDS: TEMAZEPAM MC SCH ×3 (01:04→17:30)
[2019-07-31 01:20] VITALS: BP 148/91
[2019-07-31 05:35] LABS: ANION GAP 5 mmol/L (5-15); CALCIUM 8.5 mg/dL (8.5-10.1); CHLORIDE 106 mmol/L (98-107); CREATININE 4.88 mg/dL (0.7-1.3)
[2019-07-31] MEDS: OMEPRAZOLE 20 MG CAPSULE.DR PO SCH (06:06)
[2019-07-31] MEDS: LEVOTHYROXINE 75 MCG TABLET PO SCH (06:06)
[2019-07-31] MEDS: INSULIN LISPRO 100 UNITS/ML, PEN SQ-INSULIN SCH ×6 (07:00→19:53)
[2019-07-31 07:50] VITALS: BP 135/67
[2019-07-31] MEDS: SERTRALINE 100MG TABLET PO SCH (07:55)
[2019-07-31] MEDS ORDERED: NALOXONE 1 MG/ML, 2ML ONE (07:55)
[2019-07-31] MEDS ORDERED: FLUMAZENIL 0.1 MG/1 ML, 5ML ONE (07:55)
[2019-07-31] MEDS ORDERED: FENTANYL PF 100 MCG/2ML ONE (07:55)
[2019-07-31] MEDS: OMEGA-3/FISH OIL CAPSULE PO SCH (07:55)
[2019-07-31] MEDS ORDERED: MIDAZOLAM 1 MG/ML, 5ML ONE (07:55)
[2019-07-31] MEDS: CARVEDILOL 25 MG TABLET PO SCH ×2 (07:55→19:52)
[2019-07-31] MEDS: TOPIRAMATE 25 MG TABLET PO SCH (07:55)
[2019-07-31] MEDS: TAMSULOSIN 0.4 MG CAP.ER.24H PO SCH (07:56)
[2019-07-31] MEDS: ASPIRIN 81 MG TABLET EC PO SCH (07:56)
[2019-07-31] MEDS: DOCUSATE 100 MG CAPSULE PO SCH ×2 (07:57→19:53)
[2019-07-31] MEDS: AMIODARONE 200 MG TABLET PO SCH (07:57)
[2019-07-31] MEDS ORDERED: LIDOCAINE 1%, 20ML ONE (08:05)
[2019-07-31] MEDS ORDERED: CEFAZOLIN PMX 1GM/50ML 50 ML ONE (08:22)
[2019-07-31] MEDS: SODIUM CHLORIDE FLUSH 10ML SYR IVF SCH ×2 (09:00→19:54)
[2019-07-31] MEDS: FLUTICASONE NASAL SPRAY 16GM NAS SCH ×2 (10:30→19:53)
[2019-07-31] MEDS: INSULIN GLARGINE 100 UNITS/ML, PEN SQ-INSULIN SCH ×2 (10:36→19:54)
[2019-07-31 11:56] VITALS: BP 113/63
[2019-07-31 13:30] VITALS: BP_SYST 124; BP_SYST 135; BP_DIAS 65; BP_DIAS 67
[2019-07-31 18:25] VITALS: BP 133/75
[2019-07-31] MEDS: ATORVASTATIN 40 MG TABLET PO SCH (19:52)
[2019-07-31] MEDS: FINASTERIDE 5 MG TABLET PO SCH (19:52)
[2019-07-31] MEDS: REPAGLINIDE 2 MG TABLET PO SCH (19:52)
[2019-08-01] MEDS: TEMAZEPAM MC SCH ×3 (01:30→17:30)
[2019-08-01 02:34] VITALS: BP 139/69
[2019-08-01] MEDS: OMEPRAZOLE 20 MG CAPSULE.DR PO SCH (05:09)
[2019-08-01] MEDS: LEVOTHYROXINE 75 MCG TABLET PO SCH (05:10)
[2019-08-01 05:15] LABS: ANION GAP 5 mmol/L (5-15); CALCIUM 8.7 mg/dL (8.5-10.1); CHLORIDE 104 mmol/L (98-107); CREATININE 3.72 mg/dL (0.7-1.3)
[2019-08-01] MEDS: INSULIN LISPRO 100 UNITS/ML, PEN SQ-INSULIN SCH ×4 (09:00→21:12)
[2019-08-01] MEDS: DOCUSATE 100 MG CAPSULE PO SCH ×2 (09:01→21:08)
[2019-08-01] MEDS: FLUTICASONE NASAL SPRAY 16GM NAS SCH ×2 (09:01→21:09)
[2019-08-01] MEDS: TOPIRAMATE 25 MG TABLET PO SCH (09:02)
[2019-08-01] MEDS: REPAGLINIDE 2 MG TABLET PO SCH ×2 (09:02→21:08)
[2019-08-01] MEDS: SERTRALINE 100MG TABLET PO SCH (09:02)
[2019-08-01] MEDS: ASPIRIN 81 MG TABLET EC PO SCH (09:02)
[2019-08-01] MEDS: TAMSULOSIN 0.4 MG CAP.ER.24H PO SCH (09:03)
[2019-08-01] MEDS: OMEGA-3/FISH OIL CAPSULE PO SCH (09:03)
[2019-08-01] MEDS: SODIUM CHLORIDE FLUSH 10ML SYR IVF SCH ×2 (09:06→21:09)
[2019-08-01] MEDS: INSULIN GLARGINE 100 UNITS/ML, PEN SQ-INSULIN SCH ×2 (09:06→21:11)
[2019-08-01 09:08] VITALS: BP 105/57
[2019-08-01] MEDS: AMIODARONE 200 MG TABLET PO SCH (09:13)
[2019-08-01] MEDS: CARVEDILOL 25 MG TABLET PO SCH ×2 (09:13→21:09)
[2019-08-01 14:04] VITALS: BP 125/63
[2019-08-01 18:58] VITALS: BP 137/62
[2019-08-01] MEDS: ATORVASTATIN 40 MG TABLET PO SCH (21:08)
[2019-08-01] MEDS: FINASTERIDE 5 MG TABLET PO SCH (21:08)
[2019-08-01] MEDS: APIXABAN 2.5 MG TABLET PO SCH (21:08)
[2019-08-02] MEDS: TEMAZEPAM MC SCH ×2 (00:15→09:30)
[2019-08-02 00:56] VITALS: BP 138/68
[2019-08-02 05:21] LABS: ANION GAP 6 mmol/L (5-15); CALCIUM 8.2 mg/dL (8.5-10.1); CHLORIDE 103 mmol/L (98-107); CREATININE 4.45 mg/dL (0.7-1.3)
[2019-08-02] MEDS: LEVOTHYROXINE 75 MCG TABLET PO SCH (05:28)
[2019-08-02] MEDS: OMEPRAZOLE 20 MG CAPSULE.DR PO SCH (05:28)
[2019-08-02] MEDS ORDERED: MAGNESIUM SULFATE PMX 2GM/50ML 50 ML IV ONE (06:00)
[2019-08-02 06:43] VITALS: BP 114/62
[2019-08-02 08:15] VITALS: BP 124/66
[2019-08-02] MEDS: INSULIN GLARGINE 100 UNITS/ML, PEN SQ-INSULIN SCH (08:20)
[2019-08-02] MEDS: FLUTICASONE NASAL SPRAY 16GM NAS SCH (08:21)
[2019-08-02] MEDS: INSULIN LISPRO 100 UNITS/ML, PEN SQ-INSULIN SCH ×2 (08:21→12:25)
[2019-08-02] MEDS: APIXABAN 2.5 MG TABLET PO SCH (08:22)
[2019-08-02] MEDS: ASPIRIN 81 MG TABLET EC PO SCH (08:22)
[2019-08-02] MEDS: SERTRALINE 100MG TABLET PO SCH (08:22)
[2019-08-02] MEDS: CARVEDILOL 25 MG TABLET PO SCH (08:22)
[2019-08-02] MEDS: DOCUSATE 100 MG CAPSULE PO SCH (08:22)
[2019-08-02] MEDS: TOPIRAMATE 25 MG TABLET PO SCH (08:22)
[2019-08-02] MEDS: REPAGLINIDE 2 MG TABLET PO SCH (08:22)
[2019-08-02] MEDS: OMEGA-3/FISH OIL CAPSULE PO SCH (08:22)
[2019-08-02] MEDS: TAMSULOSIN 0.4 MG CAP.ER.24H PO SCH (08:22)
[2019-08-02] MEDS: AMIODARONE 200 MG TABLET PO SCH (08:26)
[2019-08-02] MEDS: SODIUM CHLORIDE FLUSH 10ML SYR IVF SCH (08:28)
[2019-08-02] MEDS ORDERED: INSU100V8 SQ (09:47)
[2019-08-02] MEDS ORDERED: APIX2.5T PO (12:41)
== END 2019-08-02 14:13 | disposition home or self-care (01) | DRG 674 ==
LOC: ED 12:00 → EDIP 14:52 → 4WST 15:44
PROVIDERS: ADMIT Family Medicine; ATTEND Family Medicine
PROC: 02HV33Z Insertion of Infusion Device into Superior Vena Cava, Percutaneous Approach (ICD-10-PCS; 2019-07-27)
PROC: B5181ZA Fluoroscopy of Superior Vena Cava using Low Osmolar Contrast, Guidance (ICD-10-PCS; 2019-07-27)
PROC: B548ZZA Ultrasonography of Superior Vena Cava, Guidance (ICD-10-PCS; 2019-07-27)
PROC: 5A1D70Z Performance of Urinary Filtration, Intermittent, Less than 6 Hours Per Day (ICD-10-PCS; 2019-07-27)
PROC: 5A1D70Z Performance of Urinary Filtration, Intermittent, Less than 6 Hours Per Day (ICD-10-PCS; 2019-07-28)
PROC: 5A1D70Z Performance of Urinary Filtration, Intermittent, Less than 6 Hours Per Day (ICD-10-PCS; 2019-07-29)
PROC: 0JH63XZ Insertion of Tunneled Vascular Access Device into Chest Subcutaneous Tissue and Fascia, Percutaneous Approach (ICD-10-PCS; principal; 2019-07-31)
PROC: 02HV33Z Insertion of Infusion Device into Superior Vena Cava, Percutaneous Approach (ICD-10-PCS; 2019-07-31)
PROC: B5181ZA Fluoroscopy of Superior Vena Cava using Low Osmolar Contrast, Guidance (ICD-10-PCS; 2019-07-31)
PROC: B548ZZA Ultrasonography of Superior Vena Cava, Guidance (ICD-10-PCS; 2019-07-31)
PROC: 5A1D70Z Performance of Urinary Filtration, Intermittent, Less than 6 Hours Per Day (ICD-10-PCS; 2019-07-31)
DX: N17.9 Acute kidney failure, unspecified (principal); I13.2 Hypertensive heart and chronic kidney disease with heart failure and with stage 5 chronic kidney disease, or end stage renal disease; I50.30 Unspecified diastolic (congestive) heart failure; I42.9 Cardiomyopathy, unspecified; N18.6 End stage renal disease; E03.9 Hypothyroidism, unspecified; E11.22 Type 2 diabetes mellitus with diabetic chronic kidney disease; E11.649 Type 2 diabetes mellitus with hypoglycemia without coma; E78.5 Hyperlipidemia, unspecified; E86.0 Dehydration; G47.00 Insomnia, unspecified; G47.33 Obstructive sleep apnea (adult) (pediatric); G89.29 Other chronic pain; I25.10 Atherosclerotic heart disease of native coronary artery without angina pectoris; I25.2 Old myocardial infarction; I48.91 Unspecified atrial fibrillation; J44.9 Chronic obstructive pulmonary disease, unspecified; N28.1 Cyst of kidney, acquired; N40.0 Benign prostatic hyperplasia without lower urinary tract symptoms; R32 Unspecified urinary incontinence; Z66 Do not resuscitate; Z79.01 Long term (current) use of anticoagulants; Z79.4 Long term (current) use of insulin; Z86.14 Personal history of Methicillin resistant Staphylococcus aureus infection; Z87.891 Personal history of nicotine dependence; Z95.1 Presence of aortocoronary bypass graft; Z99.81 Dependence on supplemental oxygen; E66.9 Obesity, unspecified; Z68.36 Body mass index [BMI] 36.0-36.9, adult
CPT/HCPCS: 36415; 36556; 36565; 70450; 71045; 76770; 76937; 77001; 80048; 80053; 81001; 82436; 82570; 82947; 82962; 83520; 83735; 84100; 84133; 84145; 84156; 84300; 84484; 85025; 85610; 85651; 85730; 86038; 86039; 86160; 86256; 86480; 86704; 86706; 86708; 86803; 87340; 90935; 93005; 93306; 93922; 99156; 99157; 99285; G0378; J0690; J1815; J2250; J3010; C1750; C1751; J1642; J2310; J3475; J7030

== ENCOUNTER 2019-08-14 09:18 | Emergency (ER) | payer MEDICARE, OTHER ==
[~2019-08-14] VITALS: Ht 188 cm; Wt 136.0 kg
[~2019-08-14 09:18] MED LIST changes: +APIX2.5T PO
--- NOTE | 2019-08-14 09:42 | NUR ---
PT HAD 30 SECOND EPISODE OF EYES CLOSED CRYING AND BODY TENSED UP. THEN BACK TO NORMAL AND STATES HIS RIGHT SHOULDER HAD PAIN LIKE HE NEVER HAD BUT NOW IT DOES NOT HURT
[2019-08-14 09:59] LABS: BASOPHILS # (AUTO) 0.06 x10^3/uL (0-0.1); BASOPHILS % (AUTO) 1 % (0-1); EOSINOPHILS # (AUTO) 0.41 x10^3/uL (0-0.4); EOSINOPHILS % (AUTO) 7 % (1-7); LYMPHOCYTES # (AUTO) 1.14 x10^3/uL (1-3.4); LYMPHOCYTES % (AUTO) 19 % (22-44); MD NO; MEAN CORPUSCULAR HEMOGLOBIN 30.3 pg (27.5-34.5); MEAN CORPUSCULAR HGB CONC 32.4 g/dL (33.2-36.2); MEAN CORPUSCULAR VOLUME 93.8 fL (81-97); MEAN PLATELET VOLUME 8.3 fL (7.4-10.4); MONOCYTES # (AUTO) 0.45 x10^3/uL (0.2-0.8); MONOCYTES % (AUTO) 8 % (2-9); NEUTROPHILS # (AUTO) 3.84 x10^3/uL (1.8-6.8); NEUTROPHILS % (AUTO) 65 % (42-75); PLATELET COUNT 205 x10^3/uL (130-400); RED BLOOD COUNT 3.91 x10^6/uL (4.38-5.82); RED CELL DISTRIBUTION WIDTH 14.9 % (9.4-14.8)
--- NOTE | 2019-08-14 10:00 | NUR ---
REPOR TO SAMUEL
[2019-08-14 10:04] LABS: ALBUMIN 2.9 g/dL (3.4-5.0); ANION GAP 8 mmol/L (5-15); CALCIUM 8.7 mg/dL (8.5-10.1); CHLORIDE 103 mmol/L (98-107); CREATININE 3.08 mg/dL (0.7-1.3)
--- NOTE | 2019-08-14 10:17 | NUR ---
REPORT FROM CARLO MARSH. NO NEEDS EXPRESSED. VSS. AWAITING RESULTS.
[2019-08-14 10:34] VITALS: BP 139/61
--- NOTE | 2019-08-14 10:34 | NUR ---
PT RESTING IN ROOM. VSS. NO NEEDS EXPRESSED. AWAITING RESULTS.
--- NOTE | 2019-08-14 10:39 | NUR ---
all results back at this time. chart up for recheck.
[2019-08-14] MEDS ORDERED: MAGNESIUM OXIDE 400 MG TABLET ONE (11:07)
--- NOTE | 2019-08-14 11:29 | NUR ---
pt upset that "we aren't treating the problem (referring to pain)." pt educated that he was biba for near syncopal episode, not pain. pt educated that tests showed no medical emergency related to near syncope and that he would have to follow up with pcp or other outpt physician regarding pain control. pt upset wtih this answer and refused to get dressed. charger notified. tech x2 to bs for assistance dressing. pt provided taxi voucher for safe dc because pt states he "cannot carry myself home." pt refused wc to dc desk and ambulated to dc desk with slow, but steady gait. tech x2 followed pt with wc for safety.
[2019-08-14] MEDS ORDERED: MAGNESIUM OXIDE 400 MG TABLET PO ONE (11:30)
== END 2019-08-14 11:37 | disposition home or self-care (01) ==
LOC: ED 11:20
DX: R53.1 Weakness (principal); E83.42 Hypomagnesemia; I11.0 Hypertensive heart disease with heart failure; I50.9 Heart failure, unspecified; E11.9 Type 2 diabetes mellitus without complications; I25.10 Atherosclerotic heart disease of native coronary artery without angina pectoris; K21.9 Gastro-esophageal reflux disease without esophagitis; I25.2 Old myocardial infarction; E03.9 Hypothyroidism, unspecified; Z95.0 Presence of cardiac pacemaker; Z95.1 Presence of aortocoronary bypass graft; I48.91 Unspecified atrial fibrillation; M19.90 Unspecified osteoarthritis, unspecified site; J44.9 Chronic obstructive pulmonary disease, unspecified
CPT/HCPCS: 36415; 80048; 82040; 83735; 85025; 93005; 99284

== ENCOUNTER 2019-08-18 16:53 | Emergency (ER) | payer MEDICARE, OTHER ==
[~2019-08-18] VITALS: Ht 188 cm; Wt 133.0 kg
--- NOTE | 2019-08-18 17:31 | NUR ---
MD Hannon at bedside to assess pt
[2019-08-18] MEDS ORDERED: HYDROcodone/APAP 5/325 TABLET ONE (17:42)
[2019-08-18] MEDS ORDERED: MAGNESIUM OXIDE 400 MG TABLET ONE (17:49)
[2019-08-18] MEDS ORDERED: HYDROcodone/APAP 5/325 TABLET PO ONE (18:00)
[2019-08-18] MEDS ORDERED: MAGNESIUM OXIDE 400 MG TABLET PO ONE (18:00)
[2019-08-18 18:06] VITALS: BP 163/89
[2019-08-18 18:15] LABS: ANION GAP 7 mmol/L (5-15); CALCIUM 9.6 mg/dL (8.5-10.1); CHLORIDE 103 mmol/L (98-107)
== END 2019-08-18 18:09 | disposition home or self-care (01) ==
LOC: ED 17:50
DX: R53.1 Weakness (principal); R07.89 Other chest pain; M54.2 Cervicalgia; M54.9 Dorsalgia, unspecified; M25.512 Pain in left shoulder; I11.0 Hypertensive heart disease with heart failure; I50.9 Heart failure, unspecified; E11.9 Type 2 diabetes mellitus without complications; K21.9 Gastro-esophageal reflux disease without esophagitis; I25.10 Atherosclerotic heart disease of native coronary artery without angina pectoris; J44.9 Chronic obstructive pulmonary disease, unspecified; M10.9 Gout, unspecified; I25.2 Old myocardial infarction; Z87.891 Personal history of nicotine dependence; Z95.0 Presence of cardiac pacemaker; Z95.1 Presence of aortocoronary bypass graft
CPT/HCPCS: 36415; 80048; 83735; 93005; 99284

== ENCOUNTER 2019-08-24 12:32 | Inpatient (IN) | payer MEDICARE, OTHER ==
[~2019-08-24] VITALS: Ht 188 cm; Wt 125.8 kg
--- NOTE | 2019-08-24 13:18 | NUR ---
PT BIB BY [facility]. REPORTS HEADACHCE, NECK AND SHOULDER PAIN DURING DIALYSIS. WAS HERE ON 08/19 FOR SAME SYMPTOMS. HAS A CENTRAL LINE. RESTING IN BED. BLANKET PROVIDED. 4 LITERS OF O2 WHEN HE SLEEPS.
[2019-08-24 14:07] LABS: BASOPHILS # (AUTO) 0.04 x10^3/uL (0-0.1); BASOPHILS % (AUTO) 1 % (0-1); EOSINOPHILS # (AUTO) 0.48 x10^3/uL (0-0.4); EOSINOPHILS % (AUTO) 8 % (1-7); LYMPHOCYTES # (AUTO) 1.62 x10^3/uL (1-3.4); LYMPHOCYTES % (AUTO) 26 % (22-44); MD NO; MEAN CORPUSCULAR HEMOGLOBIN 30.4 pg (27.5-34.5); MEAN CORPUSCULAR HGB CONC 31.8 g/dL (33.2-36.2); MEAN CORPUSCULAR VOLUME 95.5 fL (81-97); MONOCYTES % (AUTO) 8 % (2-9); NEUTROPHILS # (AUTO) 3.58 x10^3/uL (1.8-6.8); NEUTROPHILS % (AUTO) 58 % (42-75); PLATELET COUNT 214 x10^3/uL (130-400); RED BLOOD COUNT 3.95 x10^6/uL (4.38-5.82); RED CELL DISTRIBUTION WIDTH 15.9 % (9.4-14.8)
[2019-08-24 14:09] LABS: ALANINE AMINOTRANSFERASE 24 U/L (12-78); ALBUMIN 2.9 g/dL (3.4-5.0); ANION GAP 2 mmol/L (5-15); CALCIUM 8.9 mg/dL (8.5-10.1); CHLORIDE 103 mmol/L (98-107)
[2019-08-24 14:12] LABS: ALKALINE PHOSPHATASE 105 U/L (45-117); BILIRUBIN,TOTAL 0.7 mg/dL (0.2-1.0); CREATININE 1.45 mg/dL (0.7-1.3)
--- NOTE | 2019-08-24 15:03 | NUR ---
PT SITTING UP IN BED. READING BOOK. STATED "SITTING UP MAKES ME FEEL BETTER"
[2019-08-24 15:09] LABS: MICROSCOPIC INDICATED
[2019-08-24 15:21] LABS: CULTURE INDICATED? NO
--- NOTE | 2019-08-24 16:22 | NUR ---
PT SITTING UPRIGHT IN BED READING A BOOK. NO REQUETS AT THIS TIME. AWAITING DOCTORS DECSION FOR TREATMENT.
--- NOTE | 2019-08-24 17:24 | NUR ---
TASK RN: BEDSIDE REPORT FROM CARLO BALLESTEROS.
--- NOTE | 2019-08-24 17:57 | NUR ---
TASK RN: PT REPORT TO CARLO BALLESTEROS.
--- NOTE | 2019-08-24 19:03 | NUR ---
PT SITTING UPRIGHT IN BED. READING A BOOK. NO REQUESTS AT THIS TIME. TOP LEVEL OF 0.510 WAS REPORTED TO . Addendum: 08/24/19 at 1904 by LÁZARO TROP LEVEL OF 0.510 WAS REPORTED TO VIKKI
--- NOTE | 2019-08-24 19:37 | NUR ---
PT SITTING UPRIGHT. IN BED. READING HIS BOOK. NO REQUESTS. CALL LIGHT WITHIN REACH.
[2019-08-24] MEDS ORDERED: ASPIRIN 81 MG TABLET CHEW ONE (19:59)
[2019-08-24] MEDS ORDERED: ASPIRIN 81 MG TABLET CHEW PO ONE (21:00)
[2019-08-24 21:11] VITALS: BP 157/72
[2019-08-24 21:56] VITALS: BP 157/72
[2019-08-24 22:51] LABS: TROPONIN I 0.431 ng/mL (0.000-0.045)
[2019-08-24] MEDS ORDERED: DEXTROSE 50%, 50ML SYRINGE IVPush PRN (23:00)
[2019-08-24] MEDS ORDERED: GLUCAGON 1 MG IM PRN (23:00)
[2019-08-24] MEDS ORDERED: DEXTROSE 4 GM TAB.CHEW PO PRN (23:00)
[2019-08-24] MEDS ORDERED: HEPARIN 5,000 UNITS/ML, 1ML IV ONE (23:45)
[2019-08-24] MEDS ORDERED: HEPARIN 25,000 UNITS/500ML PMX 500 ML IV PRN (23:45)
[2019-08-24] MEDS ORDERED: HEPARIN 5,000 UNITS/ML, 1ML IV PRN (23:45)
[2019-08-25 01:19] VITALS: BP 135/67
[2019-08-25] MEDS: ACETAMINOPHEN 325 MG TABLET PO PRN (02:39)
[2019-08-25 03:56] LABS: TROPONIN I 0.315 ng/mL (0.000-0.045)
[2019-08-25 07:26] LABS: BASOPHILS # (AUTO) 0.04 x10^3/uL (0-0.1); BASOPHILS % (AUTO) 1 % (0-1); EOSINOPHILS # (AUTO) 0.64 x10^3/uL (0-0.4); EOSINOPHILS % (AUTO) 11 % (1-7); LYMPHOCYTES # (AUTO) 1.65 x10^3/uL (1-3.4); LYMPHOCYTES % (AUTO) 28 % (22-44); MD NO; MEAN CORPUSCULAR HEMOGLOBIN 30.9 pg (27.5-34.5); MEAN CORPUSCULAR HGB CONC 32.5 g/dL (33.2-36.2); MEAN CORPUSCULAR VOLUME 95.1 fL (81-97); MEAN PLATELET VOLUME 7.7 fL (7.4-10.4); MONOCYTES # (AUTO) 0.52 x10^3/uL (0.2-0.8); MONOCYTES % (AUTO) 9 % (2-9); NEUTROPHILS # (AUTO) 3.04 x10^3/uL (1.8-6.8); NEUTROPHILS % (AUTO) 52 % (42-75); PLATELET COUNT 179 x10^3/uL (130-400); RED BLOOD COUNT 3.71 x10^6/uL (4.38-5.82); RED CELL DISTRIBUTION WIDTH 16.2 % (9.4-14.8)
[2019-08-25 07:39] LABS: CHLORIDE 102 mmol/L (98-107)
[2019-08-25 07:40] LABS: ANION GAP 4 mmol/L (5-15); CALCIUM 8.7 mg/dL (8.5-10.1); CREATININE 1.87 mg/dL (0.7-1.3)
[2019-08-25 08:15] VITALS: BP 145/78
[2019-08-25] MEDS ORDERED: TOPIRAMATE 100 MG TABLET ONE (10:04)
[2019-08-25] MEDS: AMIODARONE 200 MG TABLET PO SCH (10:48)
[2019-08-25] MEDS: SODIUM CHLORIDE FLUSH 10ML SYR IVF SCH ×2 (10:48→20:40)
[2019-08-25] MEDS: REPAGLINIDE 2 MG TABLET PO SCH ×2 (10:48→20:40)
[2019-08-25] MEDS: GABAPENTIN 300 MG CAPSULE PO SCH ×3 (10:48→20:40)
[2019-08-25] MEDS: ASPIRIN 81 MG TABLET EC PO SCH (10:48)
[2019-08-25] MEDS: LEVOTHYROXINE 75 MCG TABLET PO SCH (10:48)
[2019-08-25] MEDS: CARVEDILOL 25 MG TABLET PO SCH ×2 (10:48→20:39)
[2019-08-25] MEDS: SERTRALINE 100MG TABLET PO SCH (10:49)
[2019-08-25] MEDS: ALLOPURINOL 300 MG TABLET PO SCH (10:49)
[2019-08-25] MEDS: TOPIRAMATE 25 MG TABLET PO SCH (10:50)
[2019-08-25] MEDS ORDERED: NITROGLYCERIN 0.4 MG BOTTLE (25 TABS) SL PRN (12:00)
[2019-08-25] MEDS ORDERED: NITROGLYCERIN 0.4 MG/SPRAY SL PRN (12:00)
[2019-08-25] MEDS ORDERED: MIDAZOLAM 1 MG/ML, 2ML ONE (12:33)
[2019-08-25] MEDS ORDERED: HEPARIN 1,000 UNITS/ML, 10ML ONE (12:34)
[2019-08-25] MEDS ORDERED: NITROGLYCERIN 5 MG/ML, 10ML ONE (12:34)
[2019-08-25] MEDS ORDERED: VERAPAMIL 2.5 MG/ML, 2ML ONE (12:34)
[2019-08-25] MEDS ORDERED: LIDOCAINE 1%, 20ML ONE (12:34)
[2019-08-25] MEDS ORDERED: FENTANYL PF 100 MCG/2ML ONE (12:34)
[2019-08-25] MEDS ORDERED: TICAGRELOR 90 MG TABLET ONE (13:27)
[2019-08-25] MEDS ORDERED: BIVALIRUDIN 250 MG ONE (13:27)
[2019-08-25] MEDS: SODIUM CHLORIDE 0.9% 1,000 ML IV SCH ×2 (13:58→21:27)
[2019-08-25] MEDS ORDERED: BIVALIRUDIN 250 MG in SODIUM CHLORIDE 0.9% 50 ML IV SCH (13:58)
[2019-08-25 19:33] VITALS: BP 118/64
[2019-08-25] MEDS: ATORVASTATIN 40 MG TABLET PO SCH (20:40)
[2019-08-25] MEDS: TICAGRELOR 90 MG TABLET PO SCH (20:40)
[2019-08-25] MEDS: FINASTERIDE 5 MG TABLET PO SCH (20:40)
[2019-08-25] MEDS: TEMAZEPAM 7.5 MG HOMEMEDPO SCH ×2 (20:44→21:00)
[2019-08-26 00:16] VITALS: BP 159/91
[2019-08-26] MEDS: ACETAMINOPHEN 325 MG TABLET PO PRN (01:06)
[2019-08-26] MEDS: SODIUM CHLORIDE 0.9% 1,000 ML IV SCH (04:24)
[2019-08-26 05:06] LABS: ALBUMIN 2.7 g/dL (3.4-5.0); ANION GAP 3 mmol/L (5-15); CALCIUM 8.5 mg/dL (8.5-10.1); CHLORIDE 103 mmol/L (98-107); CREATININE 2.06 mg/dL (0.7-1.3)
[2019-08-26] MEDS ORDERED: TOPIRAMATE 100 MG TABLET ONE (08:26)
[2019-08-26 08:57] VITALS: BP 153/72
[2019-08-26] MEDS: AMIODARONE 200 MG TABLET PO SCH (08:58)
[2019-08-26] MEDS: REPAGLINIDE 2 MG TABLET PO SCH ×2 (08:58→20:18)
[2019-08-26] MEDS: ALLOPURINOL 300 MG TABLET PO SCH (08:58)
[2019-08-26] MEDS: TICAGRELOR 90 MG TABLET PO SCH ×2 (08:59→20:18)
[2019-08-26] MEDS: ASPIRIN 81 MG TABLET EC PO SCH (08:59)
[2019-08-26] MEDS: CARVEDILOL 25 MG TABLET PO SCH ×2 (08:59→20:19)
[2019-08-26] MEDS: SERTRALINE 100MG TABLET PO SCH (08:59)
[2019-08-26] MEDS ORDERED: INSULIN GLARGINE 100 UNITS/ML, PEN SQ-INSULIN SCH ×2 (09:00→21:00)
[2019-08-26] MEDS: TOPIRAMATE 25 MG TABLET PO SCH (09:00)
[2019-08-26] MEDS: LEVOTHYROXINE 75 MCG TABLET PO SCH (09:00)
[2019-08-26] MEDS ORDERED: ASPIRIN 81 MG TABLET EC PO SCH (09:00)
[2019-08-26] MEDS: GABAPENTIN 300 MG CAPSULE PO SCH ×3 (09:01→20:19)
[2019-08-26] MEDS: SODIUM CHLORIDE FLUSH 10ML SYR IVF SCH ×2 (09:04→20:19)
[2019-08-26] MEDS ORDERED: SODIUM CHLORIDE 0.9% 1,000 ML IV SCH ×2 (13:58)
[2019-08-26] MEDS ORDERED: DEXTROSE 50%, 50ML SYRINGE IVPush PRN (14:00)
[2019-08-26] MEDS ORDERED: GLUCAGON 1 MG IM PRN (14:00)
[2019-08-26] MEDS ORDERED: DEXTROSE 4 GM TAB.CHEW PO PRN (14:00)
[2019-08-26 15:26] VITALS: BP 117/72
[2019-08-26] MEDS: HEPARIN 5,000 UNITS/ML, 1ML SQ SCH (16:24)
[2019-08-26] MEDS: INSULIN LISPRO 100 UNITS/ML, PEN SQ-INSULIN SCH ×2 (16:27→20:22)
[2019-08-26 19:19] VITALS: BP 111/60
[2019-08-26] MEDS: ATORVASTATIN 40 MG TABLET PO SCH (20:18)
[2019-08-26] MEDS: FINASTERIDE 5 MG TABLET PO SCH (20:19)
[2019-08-26] MEDS: TEMAZEPAM 7.5 MG HOMEMEDPO SCH (21:00)
[2019-08-27 00:10] VITALS: BP 120/64
[2019-08-27 05:58] LABS: ALBUMIN 2.8 g/dL (3.4-5.0); ANION GAP 6 mmol/L (5-15); CALCIUM 8.7 mg/dL (8.5-10.1); CHLORIDE 101 mmol/L (98-107); CREATININE 2.75 mg/dL (0.7-1.3)
[2019-08-27] MEDS ORDERED: INSULIN GLARGINE 100 UNITS/ML, PEN SQ-INSULIN SCH (08:00)
[2019-08-27] MEDS: LEVOTHYROXINE 75 MCG TABLET PO SCH (08:08)
[2019-08-27] MEDS: SERTRALINE 100MG TABLET PO SCH (08:08)
[2019-08-27] MEDS: REPAGLINIDE 2 MG TABLET PO SCH (08:08)
[2019-08-27] MEDS: ASPIRIN 81 MG TABLET EC PO SCH (08:09)
[2019-08-27] MEDS: AMIODARONE 200 MG TABLET PO SCH (08:09)
[2019-08-27] MEDS: GABAPENTIN 300 MG CAPSULE PO SCH (08:09)
[2019-08-27] MEDS: TOPIRAMATE 25 MG TABLET PO SCH (08:09)
[2019-08-27] MEDS: TICAGRELOR 90 MG TABLET PO SCH (08:09)
[2019-08-27] MEDS: CARVEDILOL 25 MG TABLET PO SCH (08:10)
[2019-08-27] MEDS: INSULIN LISPRO 100 UNITS/ML, PEN SQ-INSULIN SCH ×2 (08:11→12:11)
[2019-08-27] MEDS: HEPARIN 5,000 UNITS/ML, 1ML SQ SCH ×2 (08:12)
[2019-08-27] MEDS: SODIUM CHLORIDE FLUSH 10ML SYR IVF SCH (08:12)
[2019-08-27 08:43] VITALS: BP 126/61
[2019-08-27] MEDS ORDERED: CARVEDILOL 25 MG TABLET PO SCH (09:00)
[2019-08-27] MEDS: ALLOPURINOL 300 MG TABLET PO SCH (11:23)
[2019-08-27] MEDS ORDERED: FUROSEMIDE 100 MG/10 ML ONE (13:03)
[2019-08-27] MEDS ORDERED: FUROSEMIDE 100 MG/10 ML IV ONE (13:30)
[2019-08-27] MEDS ORDERED: TICA90TA PO (15:00)
[2019-08-27] MEDS ORDERED: CARV25TA12 PO (15:00)
== END 2019-08-27 17:10 | disposition home or self-care (01) | DRG 246 ==
LOC: ED 12:45 → EDIP 19:14 → 5SO 21:03
PROVIDERS: ADMIT Internal Medicine; ATTEND Internal Medicine
PROC: 4A023N7 Measurement of Cardiac Sampling and Pressure, Left Heart, Percutaneous Approach (ICD-10-PCS; principal; 2019-08-25)
PROC: 027034Z Dilation of Coronary Artery, One Artery with Drug-eluting Intraluminal Device, Percutaneous Approach (ICD-10-PCS; 2019-08-25)
PROC: B2111ZZ Fluoroscopy of Multiple Coronary Arteries using Low Osmolar Contrast (ICD-10-PCS; 2019-08-25)
PROC: B2151ZZ Fluoroscopy of Left Heart using Low Osmolar Contrast (ICD-10-PCS; 2019-08-25)
PROC: B2131ZZ Fluoroscopy of Multiple Coronary Artery Bypass Grafts using Low Osmolar Contrast (ICD-10-PCS; 2019-08-25)
DX: T82.898A Other specified complication of vascular prosthetic devices, implants and grafts, initial encounter (principal); I21.4 Non-ST elevation (NSTEMI) myocardial infarction; I50.33 Acute on chronic diastolic (congestive) heart failure; N18.6 End stage renal disease; E46 Unspecified protein-calorie malnutrition; I50.32 Chronic diastolic (congestive) heart failure; I42.9 Cardiomyopathy, unspecified; I13.2 Hypertensive heart and chronic kidney disease with heart failure and with stage 5 chronic kidney disease, or end stage renal disease; D63.1 Anemia in chronic kidney disease; E03.9 Hypothyroidism, unspecified; E11.22 Type 2 diabetes mellitus with diabetic chronic kidney disease; Z68.35 Body mass index [BMI] 35.0-35.9, adult; E78.5 Hyperlipidemia, unspecified; E87.6 Hypokalemia; E11.649 Type 2 diabetes mellitus with hypoglycemia without coma; G47.33 Obstructive sleep apnea (adult) (pediatric); I35.0 Nonrheumatic aortic (valve) stenosis; N40.0 Benign prostatic hyperplasia without lower urinary tract symptoms; J44.9 Chronic obstructive pulmonary disease, unspecified; I48.0 Paroxysmal atrial fibrillation; I25.2 Old myocardial infarction; I25.10 Atherosclerotic heart disease of native coronary artery without angina pectoris; Y83.8 Other surgical procedures as the cause of abnormal reaction of the patient, or of later complication, without mention of misadventure at the time of the procedure; Y92.89 Other specified places as the place of occurrence of the external cause; G89.29 Other chronic pain; Z99.2 Dependence on renal dialysis; Z95.1 Presence of aortocoronary bypass graft; Z95.0 Presence of cardiac pacemaker; Z87.891 Personal history of nicotine dependence; Z86.79 Personal history of other diseases of the circulatory system; Z86.14 Personal history of Methicillin resistant Staphylococcus aureus infection; Z82.49 Family history of ischemic heart disease and other diseases of the circulatory system; Z79.82 Long term (current) use of aspirin; Z68.34 Body mass index [BMI] 34.0-34.9, adult; Z79.4 Long term (current) use of insulin
CPT/HCPCS: 36415; 70450; 71045; 80048; 80053; 80069; 81001; 82962; 83735; 83880; 84484; 85014; 85018; 85025; 85520; 93005; 93458; 99156; 99157; C1894; C9600; G0378; J0583; J1644; J1940; J2250; J3010; C1725; C1769; C1874; C1887; J1815; Q9967

== ENCOUNTER 2019-08-27 17:22 | Emergency (ER) | payer MEDICARE, OTHER ==
[~2019-08-27] VITALS: Ht 188 cm; Wt 128.6 kg
[~2019-08-27 17:22] MED LIST changes: +CARV25TA12 PO; +TICA90TA PO
--- NOTE | 2019-08-27 17:42 | NUR ---
EKG COMPLETED IN TRIAGE. FSBG DONE IN TRIAGE PER PT REQUEST, 288.
--- NOTE | 2019-08-27 17:59 | NUR ---
PT TO ED FOR DIZZINESS AND SEEING SPOTS. PT STATES WAS DC FROM [facility] APPROX 1 HOUR AGO. PT REPORTS WAS ADMITTED ON WEDNESDAY FOR TX AND 1 STENT WAS PLACED YESTERDAY. RIGHT GROIN INSERTION SITE IS SOFT WITH NO HEMATOMA PRESENT. DRESSING IS CDI. PT STATES "ALL THE DIZZINESS HAS CLEARED UP" AT THIS TIME. PT CONNECTED TO ALL MONITORS. VSS. NO NEEDS EXPRESSED. CALL LIGHT WITHIN REACH. AWAITING EDMD ASSESSMENT.
--- NOTE | 2019-08-27 18:02 | NUR ---
PT UNABLE TO RECALL MEDICATIONS AT THIS TIME. PT UNSURE WHAT WAS ADMINISTERED IN HOSPITAL TODAY.
[2019-08-27 19:21] LABS: BASOPHILS # (AUTO) 0.04 x10^3/uL (0-0.1); BASOPHILS % (AUTO) 1 % (0-1); EOSINOPHILS # (AUTO) 0.63 x10^3/uL (0-0.4); EOSINOPHILS % (AUTO) 9 % (1-7); LYMPHOCYTES # (AUTO) 1.12 x10^3/uL (1-3.4); LYMPHOCYTES % (AUTO) 16 % (22-44); MD NO; MEAN CORPUSCULAR HEMOGLOBIN 30.8 pg (27.5-34.5); MEAN CORPUSCULAR VOLUME 96.2 fL (81-97); MONOCYTES # (AUTO) 0.47 x10^3/uL (0.2-0.8); MONOCYTES % (AUTO) 7 % (2-9); NEUTROPHILS # (AUTO) 4.83 x10^3/uL (1.8-6.8); NEUTROPHILS % (AUTO) 68 % (42-75); PLATELET COUNT 162 x10^3/uL (130-400); RED BLOOD COUNT 3.97 x10^6/uL (4.38-5.82); RED CELL DISTRIBUTION WIDTH 15.7 % (9.4-14.8)
[2019-08-27 19:29] VITALS: BP 137/66
--- NOTE | 2019-08-27 19:29 | NUR ---
PT STATES DIZZINESS HAS RETURNED. VSS. DR. FLANNERY TO BS FOR ASSESSMENT. AWAITING FURTHER ORDERS AND DISPO.
[2019-08-27 19:34] LABS: ALANINE AMINOTRANSFERASE 22 U/L (12-78); ANION GAP 6 mmol/L (5-15); CALCIUM 8.9 mg/dL (8.5-10.1); CHLORIDE 100 mmol/L (98-107)
[2019-08-27 19:39] LABS: ALKALINE PHOSPHATASE 99 U/L (45-117); BILIRUBIN,TOTAL 0.6 mg/dL (0.2-1.0); CREATININE 2.95 mg/dL (0.7-1.3); TOTAL PROTEIN 7.1 g/dL (6.4-8.2)
--- NOTE | 2019-08-27 19:59 | NUR ---
plan to dc. pt educated on poc. pt upset that "nothing's wrong. mothing's ever wrong." pt educated to follow up with pcp outpt for concerns.
== END 2019-08-27 20:16 | disposition home or self-care (01) ==
LOC: ED 18:32
DX: R42 Dizziness and giddiness (principal); I11.0 Hypertensive heart disease with heart failure; I50.9 Heart failure, unspecified; E11.9 Type 2 diabetes mellitus without complications; K21.9 Gastro-esophageal reflux disease without esophagitis; J44.9 Chronic obstructive pulmonary disease, unspecified; I25.2 Old myocardial infarction; I48.91 Unspecified atrial fibrillation; I25.10 Atherosclerotic heart disease of native coronary artery without angina pectoris; E78.5 Hyperlipidemia, unspecified; Z87.891 Personal history of nicotine dependence
CPT/HCPCS: 36415; 70450; 71045; 80053; 82962; 83605; 84484; 85025; 93005; 99284

== ENCOUNTER 2019-08-30 18:23 | Inpatient (IN) | payer MEDICARE, OTHER ==
[~2019-08-30] VITALS: Ht 188 cm; Wt 119.3 kg
[2019-08-30 19:06] LABS: BASOPHILS # (AUTO) 0.03 x10^3/uL (0-0.1); BASOPHILS % (AUTO) 0 % (0-1); EOSINOPHILS # (AUTO) 0.39 x10^3/uL (0-0.4); EOSINOPHILS % (AUTO) 5 % (1-7); LYMPHOCYTES # (AUTO) 1.28 x10^3/uL (1-3.4); LYMPHOCYTES % (AUTO) 18 % (22-44); MD NO; MEAN CORPUSCULAR HEMOGLOBIN 30.8 pg (27.5-34.5); MEAN CORPUSCULAR HGB CONC 32.5 g/dL (33.2-36.2); MEAN CORPUSCULAR VOLUME 94.9 fL (81-97); MEAN PLATELET VOLUME 8.4 fL (7.4-10.4); MONOCYTES # (AUTO) 0.61 x10^3/uL (0.2-0.8); MONOCYTES % (AUTO) 9 % (2-9); NEUTROPHILS # (AUTO) 4.86 x10^3/uL (1.8-6.8); NEUTROPHILS % (AUTO) 68 % (42-75); PLATELET COUNT 178 x10^3/uL (130-400); RED BLOOD COUNT 3.42 x10^6/uL (4.38-5.82); RED CELL DISTRIBUTION WIDTH 15.6 % (9.4-14.8)
--- NOTE | 2019-08-30 19:14 | NUR ---
REPORT FROM OSMIN MATOS, ASSUME CARE OF PT AT THIS TIME. PT BACK FROM CT, SLEEPING BUT AROUSABLE TO VOICE. PT UPDATED ON POC. URINAL PLACED AT BS FOR UA. CALL LIGHT WITHIN REACH.
[2019-08-30 19:18] LABS: ALANINE AMINOTRANSFERASE 39 U/L (12-78); ALBUMIN 2.9 g/dL (3.4-5.0); ANION GAP 7 mmol/L (5-15); CALCIUM 8.8 mg/dL (8.5-10.1); CHLORIDE 103 mmol/L (98-107); CREATININE 2.53 mg/dL (0.7-1.3)
[2019-08-30 19:23] LABS: ALKALINE PHOSPHATASE 106 U/L (45-117); BILIRUBIN,TOTAL 0.4 mg/dL (0.2-1.0); TOTAL PROTEIN 6.8 g/dL (6.4-8.2)
[2019-08-30 19:30] LABS: TROPONIN I 0.608 ng/mL (0.000-0.045)
--- NOTE | 2019-08-30 19:30 | NUR ---
PT GIVEN 100 ML OF ORANGE JUICE FOR LAB GLUCOSE 61. PT ABLE TO SWALLOW EFFECTIVELY, PASSED SWALLOW EVAL. CALL LIGHT WITHIN REACH.
--- NOTE | 2019-08-30 19:35 | NUR ---
ERP NOTIFIED OF TROPONIN, ERP IN TO ASSESS PT. VSS/UPDATED IN COMPUTER
[2019-08-30] MEDS ORDERED: ASPIRIN 325 MG TABLET ONE (19:58)
[2019-08-30] MEDS ORDERED: ASPIRIN 325 MG TABLET PO ONE (20:00)
--- NOTE | 2019-08-30 20:00 | NUR ---
FS GLUCOSE 48. ERP NOTIFIED, PHARMACY CALLED FOR AMP D50.
[2019-08-30] MEDS ORDERED: DEXTROSE 50%, 50ML SYRINGE IVPush ONE (20:30)
--- NOTE | 2019-08-30 20:30 | NUR ---
FS 86. [facility] IN TO SEE PT.
[2019-08-30] MEDS ORDERED: DEXTROSE 50%, 50ML SYRINGE IVPush PRN (21:00)
[2019-08-30] MEDS: SODIUM CHLORIDE FLUSH 10ML SYR IVF SCH (21:00)
[2019-08-30] MEDS ORDERED: DEXTROSE 4 GM TAB.CHEW PO PRN (21:00)
[2019-08-30] MEDS ORDERED: GLUCAGON 1 MG IM PRN (21:00)
--- NOTE | 2019-08-30 21:00 | NUR ---
REPORT TO MARTY MATOS, PT READY FOR TRANSPORT TO FLOOR.
[2019-08-30 22:24] VITALS: BP 154/76
[2019-08-30] MEDS: CARVEDILOL 25 MG TABLET PO SCH (23:03)
[2019-08-30] MEDS: ATORVASTATIN 40 MG TABLET PO SCH (23:03)
[2019-08-30] MEDS: TICAGRELOR 90 MG TABLET PO SCH (23:03)
[2019-08-30] MEDS: FINASTERIDE 5 MG TABLET PO SCH (23:50)
[2019-08-31] VITALS (7 sets, daily range): BP systolic 123–157; BP diastolic 62–76
[2019-08-31 03:53] LABS: MICROSCOPIC AUTO
[2019-08-31 04:00] LABS: CULTURE INDICATED? NO
[2019-08-31] MEDS: LEVOTHYROXINE 150 MCG TABLET PO SCH (05:58)
[2019-08-31] MEDS: LEVOTHYROXINE 75 MCG TABLET PO SCH (05:58)
[2019-08-31] MEDS ORDERED: NITROGLYCERIN 0.4 MG BOTTLE (25 TABS) SL PRN (06:00)
[2019-08-31 07:07] LABS: ANION GAP 7 mmol/L (5-15); CHLORIDE 105 mmol/L (98-107)
[2019-08-31 07:14] LABS: CREATININE 2.41 mg/dL (0.7-1.3); TROPONIN I 0.373 ng/mL (0.000-0.045)
[2019-08-31] MEDS: INSULIN LISPRO 100 UNITS/ML, PEN SQ-INSULIN SCH ×4 (09:28→19:59)
[2019-08-31] MEDS: TOPIRAMATE 25 MG TABLET PO SCH (09:30)
[2019-08-31] MEDS: ALLOPURINOL 300 MG TABLET PO SCH (09:30)
[2019-08-31] MEDS: TICAGRELOR 90 MG TABLET PO SCH ×2 (09:30→19:55)
[2019-08-31] MEDS: ASPIRIN 81 MG TABLET EC PO SCH (09:30)
[2019-08-31] MEDS: SERTRALINE 100MG TABLET PO SCH (09:30)
[2019-08-31] MEDS: AMIODARONE 200 MG TABLET PO SCH (09:30)
[2019-08-31] MEDS: GABAPENTIN 300 MG CAPSULE PO SCH (09:30)
[2019-08-31] MEDS: SODIUM CHLORIDE FLUSH 10ML SYR IVF SCH ×2 (09:31→19:55)
[2019-08-31] MEDS: CARVEDILOL 25 MG TABLET PO SCH ×2 (09:31→20:00)
[2019-08-31] MEDS ORDERED: ARANESP 60 MCG/ML **ESRD SQ SCH (12:30)
[2019-08-31] MEDS: ACETAMINOPHEN 325 MG TABLET PO PRN (13:13)
[2019-08-31 14:39] LABS: TROPONIN I 0.277 ng/mL (0.000-0.045)
[2019-08-31] MEDS: ATORVASTATIN 40 MG TABLET PO SCH (19:55)
[2019-08-31] MEDS: FINASTERIDE 5 MG TABLET PO SCH (19:55)
[2019-09-01 00:54] VITALS: BP 132/86
[2019-09-01] MEDS: ACETAMINOPHEN 325 MG TABLET PO PRN (04:03)
[2019-09-01 05:52] LABS: BASOPHILS # (AUTO) 0.05 x10^3/uL (0-0.1); BASOPHILS % (AUTO) 1 % (0-1); EOSINOPHILS # (AUTO) 0.62 x10^3/uL (0-0.4); EOSINOPHILS % (AUTO) 11 % (1-7); LYMPHOCYTES # (AUTO) 1.46 x10^3/uL (1-3.4); LYMPHOCYTES % (AUTO) 26 % (22-44); MD NO; MEAN CORPUSCULAR HEMOGLOBIN 30.9 pg (27.5-34.5); MEAN CORPUSCULAR HGB CONC 32.5 g/dL (33.2-36.2); MEAN CORPUSCULAR VOLUME 94.9 fL (81-97); MEAN PLATELET VOLUME 7.7 fL (7.4-10.4); MONOCYTES # (AUTO) 0.46 x10^3/uL (0.2-0.8); MONOCYTES % (AUTO) 8 % (2-9); NEUTROPHILS # (AUTO) 3.08 x10^3/uL (1.8-6.8); NEUTROPHILS % (AUTO) 54 % (42-75); PLATELET COUNT 177 x10^3/uL (130-400); RED BLOOD COUNT 3.41 x10^6/uL (4.38-5.82); RED CELL DISTRIBUTION WIDTH 15.9 % (9.4-14.8)
[2019-09-01 06:10] LABS: CHLORIDE 106 mmol/L (98-107)
[2019-09-01] MEDS: LEVOTHYROXINE 75 MCG TABLET PO SCH (06:16)
[2019-09-01] MEDS: LEVOTHYROXINE 150 MCG TABLET PO SCH (06:17)
[2019-09-01 06:24] LABS: ANION GAP 7 mmol/L (5-15); CALCIUM 8.5 mg/dL (8.5-10.1)
[2019-09-01 06:25] LABS: % IRON SATURATION 38 % (20-55); ALANINE AMINOTRANSFERASE 28 U/L (12-78); ALBUMIN 2.6 g/dL (3.4-5.0); ALKALINE PHOSPHATASE 96 U/L (45-117); BILIRUBIN,TOTAL 0.5 mg/dL (0.2-1.0); CREATININE 1.64 mg/dL (0.7-1.3); IRON LEVEL 74 mcg/dL (65-175); TOTAL IRON BINDING CAPACITY 196 mcg/dL (250-450); TOTAL PROTEIN 6.6 g/dL (6.4-8.2)
[2019-09-01] MEDS: INSULIN LISPRO 100 UNITS/ML, PEN SQ-INSULIN SCH ×4 (07:00→20:19)
[2019-09-01 07:54] VITALS: BP 141/76
[2019-09-01] MEDS ORDERED: ARANESP 60 MCG/ML **ESRD SQ SCH (08:10)
[2019-09-01] MEDS ORDERED: MAGNESIUM SULFATE PMX 2GM/50ML 50 ML IV ONE (08:30)
[2019-09-01] MEDS: NITROGLYCERIN 0.4 MG/SPRAY SL PRN ×2 (09:01→09:13)
[2019-09-01] MEDS ORDERED: MORPHINE SULFATE 4 MG/ML, 1ML ONE (09:06)
[2019-09-01] MEDS ORDERED: NITROGLYCERIN OINT 2%, 1GM TP ONE (09:11)
[2019-09-01 09:15] VITALS: BP 159/89
[2019-09-01] MEDS ORDERED: ENALAPRILAT 1.25 MG/ML, 2ML IV PRN (09:30)
[2019-09-01] MEDS ORDERED: morphine SULFATE 10 MG/ML, 1ML IVPush ONE (09:30)
[2019-09-01] MEDS ORDERED: NITROGLYCERIN 0.4 MG/HR PATCH TD ONE (09:30)
[2019-09-01] MEDS ORDERED: hydrALAzine 20 MG/ML, 1ML IV PRN (09:30)
[2019-09-01] MEDS: TICAGRELOR 90 MG TABLET PO SCH ×2 (09:39→20:11)
[2019-09-01] MEDS: SERTRALINE 100MG TABLET PO SCH (09:39)
[2019-09-01] MEDS: GABAPENTIN 300 MG CAPSULE PO SCH (09:39)
[2019-09-01] MEDS: ALLOPURINOL 300 MG TABLET PO SCH (09:39)
[2019-09-01] MEDS: ASPIRIN 81 MG TABLET EC PO SCH (09:39)
[2019-09-01] MEDS: CARVEDILOL 25 MG TABLET PO SCH ×2 (09:40→20:11)
[2019-09-01] MEDS: AMIODARONE 200 MG TABLET PO SCH (09:40)
[2019-09-01] MEDS: TOPIRAMATE 25 MG TABLET PO SCH (09:40)
[2019-09-01] MEDS: SODIUM CHLORIDE FLUSH 10ML SYR IVF SCH ×2 (09:41→20:11)
[2019-09-01 09:56] LABS: TROPONIN I 0.178 ng/mL (0.000-0.045)
[2019-09-01 14:46] VITALS: BP 121/69
[2019-09-01] MEDS: AMLODIPINE 5 MG TABLET PO SCH (16:49)
[2019-09-01] MEDS ORDERED: MORPHINE SULFATE 4 MG/ML, 1ML IVPush PRN (17:00)
[2019-09-01] MEDS ORDERED: OMNIPAQUE 350 MG/ML, 100ML BOTTLE ONE (17:46)
[2019-09-01] MEDS: FINASTERIDE 5 MG TABLET PO SCH (20:11)
[2019-09-01] MEDS: ATORVASTATIN 40 MG TABLET PO SCH (20:11)
[2019-09-01 20:12] VITALS: BP 123/64
[2019-09-02 01:59] VITALS: BP 119/64
[2019-09-02] MEDS: LEVOTHYROXINE 75 MCG TABLET PO SCH (06:15)
[2019-09-02] MEDS: LEVOTHYROXINE 150 MCG TABLET PO SCH (06:15)
[2019-09-02 07:31] VITALS: BP 141/67
[2019-09-02 07:48] LABS: ALBUMIN 2.7 g/dL (3.4-5.0); ANION GAP 5 mmol/L (5-15); CHLORIDE 106 mmol/L (98-107)
[2019-09-02 07:49] LABS: CREATININE 2.01 mg/dL (0.7-1.3)
[2019-09-02] MEDS: INSULIN LISPRO 100 UNITS/ML, PEN SQ-INSULIN SCH ×4 (08:58→21:38)
[2019-09-02] MEDS: SODIUM CHLORIDE FLUSH 10ML SYR IVF SCH ×2 (08:58→21:15)
[2019-09-02] MEDS: AMIODARONE 200 MG TABLET PO SCH (08:58)
[2019-09-02] MEDS: TICAGRELOR 90 MG TABLET PO SCH ×2 (08:58→21:13)
[2019-09-02] MEDS: SERTRALINE 100MG TABLET PO SCH (08:59)
[2019-09-02] MEDS: TOPIRAMATE 25 MG TABLET PO SCH (08:59)
[2019-09-02] MEDS: GABAPENTIN 300 MG CAPSULE PO SCH (08:59)
[2019-09-02] MEDS: CARVEDILOL 25 MG TABLET PO SCH ×2 (08:59→21:14)
[2019-09-02] MEDS: ALLOPURINOL 300 MG TABLET PO SCH (08:59)
[2019-09-02] MEDS: AMLODIPINE 5 MG TABLET PO SCH (08:59)
[2019-09-02] MEDS: ASPIRIN 81 MG TABLET EC PO SCH (08:59)
[2019-09-02 10:48] VITALS: BP 141/71
[2019-09-02 12:33] VITALS: BP 131/79
[2019-09-02] MEDS: LIDODERM 5% PATCH TD SCH (14:20)
[2019-09-02 20:59] VITALS: BP 116/62
[2019-09-02] MEDS: ATORVASTATIN 40 MG TABLET PO SCH (21:14)
[2019-09-02] MEDS: FINASTERIDE 5 MG TABLET PO SCH (21:39)
[2019-09-03 02:38] VITALS: BP 122/63
[2019-09-03] MEDS: LEVOTHYROXINE 150 MCG TABLET PO SCH (05:55)
[2019-09-03] MEDS: LEVOTHYROXINE 75 MCG TABLET PO SCH (05:56)
[2019-09-03] MEDS ORDERED: SODIUM CHLORIDE NASAL SPRAY 45ML BOTTLE NAS PRN (08:00)
[2019-09-03 08:04] LABS: ANION GAP 7 mmol/L (5-15); CHLORIDE 105 mmol/L (98-107); CREATININE 2.34 mg/dL (0.7-1.3)
[2019-09-03 08:05] VITALS: BP 148/69
[2019-09-03] MEDS: ALLOPURINOL 300 MG TABLET PO SCH (08:31)
[2019-09-03] MEDS: TOPIRAMATE 25 MG TABLET PO SCH (08:31)
[2019-09-03] MEDS: AMIODARONE 200 MG TABLET PO SCH (08:32)
[2019-09-03] MEDS: ASPIRIN 81 MG TABLET EC PO SCH (08:32)
[2019-09-03] MEDS: SERTRALINE 100MG TABLET PO SCH (08:33)
[2019-09-03] MEDS: TICAGRELOR 90 MG TABLET PO SCH (08:33)
[2019-09-03] MEDS: GABAPENTIN 300 MG CAPSULE PO SCH (08:33)
[2019-09-03] MEDS: CARVEDILOL 25 MG TABLET PO SCH (08:33)
[2019-09-03] MEDS: AMLODIPINE 5 MG TABLET PO SCH (08:33)
[2019-09-03] MEDS: INSULIN LISPRO 100 UNITS/ML, PEN SQ-INSULIN SCH ×3 (08:34→17:04)
[2019-09-03] MEDS: SODIUM CHLORIDE FLUSH 10ML SYR IVF SCH (08:34)
[2019-09-03] MEDS ORDERED: ISOSORBIDE MONONITRATE ER 30 MG TABLET PO SCH (09:00)
[2019-09-03] MEDS ORDERED: OXYcodone/APAP 5/325MG TABLET PO ONE (10:30)
[2019-09-03 10:49] VITALS: BP 111/60
[2019-09-03 12:37] VITALS: BP 126/62
[2019-09-03] MEDS ORDERED: AMLO-150 PO (14:27)
[2019-09-03] MEDS ORDERED: TRAM50TA2 PO (14:27)
[2019-09-03] MEDS: LIDODERM 5% PATCH TD SCH (15:14)
== END 2019-09-03 18:30 | disposition home or self-care (01) | DRG 67 ==
LOC: ED 19:45 → EDIP 19:50 → UNDOADMIN 19:50 → ED 19:53 → 5SO 20:50 → EDIP 22:11 → 5SO 22:11
PROVIDERS: ADMIT Family Medicine; ATTEND Family Medicine
PROC: 5A1D70Z Performance of Urinary Filtration, Intermittent, Less than 6 Hours Per Day (ICD-10-PCS; principal; 2019-08-31)
DX: I65.23 Occlusion and stenosis of bilateral carotid arteries (principal); N18.6 End stage renal disease; I21.4 Non-ST elevation (NSTEMI) myocardial infarction; I42.9 Cardiomyopathy, unspecified; I13.2 Hypertensive heart and chronic kidney disease with heart failure and with stage 5 chronic kidney disease, or end stage renal disease; D68.69 Other thrombophilia; E46 Unspecified protein-calorie malnutrition; I25.110 Atherosclerotic heart disease of native coronary artery with unstable angina pectoris; I25.810 Atherosclerosis of coronary artery bypass graft(s) without angina pectoris; I50.32 Chronic diastolic (congestive) heart failure; E11.649 Type 2 diabetes mellitus with hypoglycemia without coma; I65.09 Occlusion and stenosis of unspecified vertebral artery; E11.22 Type 2 diabetes mellitus with diabetic chronic kidney disease; D64.9 Anemia, unspecified; E03.9 Hypothyroidism, unspecified; E66.01 Morbid (severe) obesity due to excess calories; E78.5 Hyperlipidemia, unspecified; I16.0 Hypertensive urgency; I35.0 Nonrheumatic aortic (valve) stenosis; I48.0 Paroxysmal atrial fibrillation; J44.9 Chronic obstructive pulmonary disease, unspecified; N25.0 Renal osteodystrophy; R04.0 Epistaxis; Z66 Do not resuscitate; Z68.35 Body mass index [BMI] 35.0-35.9, adult; Z79.4 Long term (current) use of insulin; Z86.72 Personal history of thrombophlebitis; Z87.891 Personal history of nicotine dependence; Z95.0 Presence of cardiac pacemaker; Z95.5 Presence of coronary angioplasty implant and graft; Z99.2 Dependence on renal dialysis; Z99.81 Dependence on supplemental oxygen
CPT/HCPCS: 36415; 70450; 70498; 71045; 80048; 80053; 80069; 80307; 81001; 82140; 82306; 82728; 82962; 83036; 83540; 83550; 83605; 83735; 83970; 84100; 84484; 84550; 85025; 86704; 86706; 87340; 90935; 93005; 96374; 99285; G0378; J0882; Q9967; J1815; J2270; J3475

== ENCOUNTER 2019-09-05 16:52 | Emergency (ER) | payer MEDICARE, OTHER ==
[~2019-09-05] VITALS: Ht 188 cm; Wt 125.0 kg
[~2019-09-05 16:52] MED LIST changes: +AMLO-150 PO; +TRAM50TA2 PO
[2019-09-05 17:59] VITALS: BP 117/59
--- NOTE | 2019-09-05 17:59 | NUR ---
PT UPRIGHT ON GURNEY WITH EYES CLOSED, PT RESPONDS APPROP TO STAFF, NO RESP DISTRESS NOTED, COMFORT MEASURES PROVIDED, CALL LIGHT WITHIN REACH.
--- NOTE | 2019-09-05 18:02 | NUR ---
Patient given discharge instructions and they have confirmed that they understand the instructions. Patient to DC desk via WC for pt comfort.
== END 2019-09-05 18:08 | disposition home or self-care (01) ==
LOC: ED 18:02
DX: I95.9 Hypotension, unspecified (principal); R42 Dizziness and giddiness; E11.9 Type 2 diabetes mellitus without complications
CPT/HCPCS: 99281

== ENCOUNTER 2019-10-27 09:33 | Observation (INO) | payer MEDICARE, OTHER ==
[~2019-10-27] VITALS: Ht 188 cm; Wt 144.2 kg
--- NOTE | 2019-10-27 10:06 | NUR ---
PT. ARRIVES BY [facility] WITH C/O MCINTOSH PAIN, CHRONIC RIGHT SHOULDER PAIN AND MGLF WITHOUT LOC. PT. STATES HE LOST HIS BALANCE AFTER GETTING UP OUT OF HIS CHAIR. PT. DENIES C/O DIZZINESS, SOB OR CHEST PAIN. PT. HAS THE CP MONITOR IN PLACE. IV ACCESS WAS ESTABLISHED IN THE FIELD. PT.'S CHEST RISE AND FALL IS SYMMETRICAL. LUNGS ARE CTA. MM ARE PINK AND MOIST WITH PULSES +2 THROUGHOUT. PT. HAS SKIN TEARS PRESENT ON BILAT ARMS, BLEEDING CONTROLLED. PT.'S BILAT LOWER EXTREMITIES AND DRESSED. PT. STATES HE HAS WOUNDS THAT ARE BEING MANAGED BY WOUND CARE. PT.'S ABD. IS SOFT AND ROUND WITH BS + X 4 QUADS. PT. HAS THE SIDERAILS UP X 2 WITH THE CALL LIGHT IN PLACE. VSS.
[2019-10-27] MEDS ORDERED: ACETAMINOPHEN 325 MG TABLET PO ONE (10:30)
[2019-10-27] MEDS ORDERED: METHOCARBAMOL 750 MG TABLET PO ONE (10:30)
[2019-10-27] MEDS ORDERED: ACETAMINOPHEN 325 MG TABLET ONE (10:59)
[2019-10-27] MEDS ORDERED: METHOCARBAMOL 750 MG TABLET ONE (10:59)
--- NOTE | 2019-10-27 11:01 | NUR ---
PT. IS IN RADIOLOGY.
--- NOTE | 2019-10-27 11:15 | NUR ---
PT. RETURNS FROM RADIOLOGY AND WAS MEDICATED ORDERED. PT. REMAINS MONITORED AND IS RESTING WITHOUT CONCERNS. VSS.
--- NOTE | 2019-10-27 11:54 | NUR ---
RECEIVED REPORT FROM TANG MATOS. ASSUMING CARE AT THIS TIME.
--- NOTE | 2019-10-27 11:59 | NUR ---
PT RESTING COMFORTABLY ON GURNEY. DAMON.
[2019-10-27 12:02] LABS: BASOPHILS # (AUTO) 0.04 x10^3/uL (0-0.1); BASOPHILS % (AUTO) 1 % (0-1); EOSINOPHILS # (AUTO) 0.19 x10^3/uL (0-0.4); EOSINOPHILS % (AUTO) 3 % (1-7); LYMPHOCYTES # (AUTO) 1.32 x10^3/uL (1-3.4); LYMPHOCYTES % (AUTO) 24 % (22-44); MD NO; MEAN CORPUSCULAR HEMOGLOBIN 31.3 pg (27.5-34.5); MEAN CORPUSCULAR HGB CONC 33.1 g/dL (33.2-36.2); MEAN CORPUSCULAR VOLUME 94.7 fL (81-97); MONOCYTES # (AUTO) 0.46 x10^3/uL (0.2-0.8); MONOCYTES % (AUTO) 8 % (2-9); NEUTROPHILS # (AUTO) 3.57 x10^3/uL (1.8-6.8); NEUTROPHILS % (AUTO) 64 % (42-75); PLATELET COUNT 168 x10^3/uL (130-400); RED BLOOD COUNT 3.73 x10^6/uL (4.38-5.82)
[2019-10-27 12:08] LABS: ALBUMIN 3.2 g/dL (3.4-5.0); ANION GAP 9 mmol/L (5-15); CALCIUM 8.6 mg/dL (8.5-10.1); CHLORIDE 110 mmol/L (98-107); CREATININE 2.13 mg/dL (0.7-1.3)
[2019-10-27 12:12] LABS: TROPONIN I < 0.015 ng/mL (0.000-0.045)
--- NOTE | 2019-10-27 12:19 | NUR ---
ALL RESULTS ARE BACK AT THIS TIME. CHART UP FOR RECHECK.
--- NOTE | 2019-10-27 13:01 | NUR ---
PT RESTING COMFORTABLY ON GURNEY. HARSHN. RECEIVED ADMIT ORDERS.
--- NOTE | 2019-10-27 15:16 | NUR ---
HOSPITALIST AT BEDSIDE.
[2019-10-27] MEDS ORDERED: LABETALOL 5MG/ML, 20ML IVPush PRN (16:00)
[2019-10-27] MEDS: HEPARIN 5,000 UNITS/ML, 1ML SQ SCH (16:00)
[2019-10-27] MEDS ORDERED: DEXTROSE 4 GM TAB.CHEW PO PRN (16:00)
[2019-10-27] MEDS ORDERED: DEXTROSE 50%, 50ML SYRINGE IVPush PRN (16:00)
[2019-10-27] MEDS ORDERED: GLUCAGON 1 MG IM PRN (16:00)
[2019-10-27] MEDS ORDERED: ACETAMINOPHEN 325 MG TABLET PO PRN (16:00)
[2019-10-27] MEDS ORDERED: TOPIRAMATE 25 MG TABLET PO PRN (16:30)
[2019-10-27] MEDS ORDERED: TEMAZEPAM 15 MG CAPSULE PO PRN (16:30)
[2019-10-27] MEDS ORDERED: MAGNESIUM SULFATE/D5W 100 ML IV ONE (16:30)
[2019-10-27] MEDS ORDERED: INSULIN LISPRO SINGLE DOSE, ER SQ-INSULIN ONE (16:45)
[2019-10-27] MEDS: INSULIN LISPRO 100 UNITS/ML, PEN SQ-INSULIN SCH ×2 (16:47→21:50)
--- NOTE | 2019-10-27 16:49 | NUR ---
REPORT GIVEN TO KENISHA MATOS. DIET TRAY DELIVERED. PT RECEIVED 2UNITS HUMALOG FOR 177 BG.
[2019-10-27] MEDS ORDERED: TEMAZEPAM MC SCH (17:30)
[2019-10-27 17:35] VITALS: BP 112/71
[2019-10-27 18:27] LABS: TROPONIN I 0.016 ng/mL (0.000-0.045)
[2019-10-27 19:52] VITALS: BP 169/75
[2019-10-27 19:56] VITALS: BP 132/82
[2019-10-27 19:58] VITALS: BP 136/75
[2019-10-27] MEDS ORDERED: REPAGLINIDE 2 MG TABLET PO SCH (21:00)
[2019-10-27] MEDS ORDERED: INSULIN GLARGINE 100 UNITS/ML, PEN SQ-INSULIN SCH (21:00)
[2019-10-27] MEDS: ATORVASTATIN 40 MG TABLET PO SCH (21:48)
[2019-10-27] MEDS: FINASTERIDE 5 MG TABLET PO SCH (21:48)
[2019-10-27] MEDS: GABAPENTIN 300 MG CAPSULE PO SCH (21:48)
[2019-10-27] MEDS: SODIUM CHLORIDE FLUSH 10ML SYR IVF SCH (21:49)
[2019-10-27] MEDS: CARVEDILOL 12.5 MG TABLET PO SCH (21:49)
[2019-10-27] MEDS ORDERED: hydrOXyzine 10MG TABLET PO PRN (23:30)
[2019-10-28] VITALS (7 sets, daily range): BP systolic 129–174; BP diastolic 68–86
[2019-10-28] MEDS ORDERED: CARV12.5 PO (01:59)
[2019-10-28 05:45] LABS: ANION GAP 7 mmol/L (5-15); CALCIUM 8.7 mg/dL (8.5-10.1); CHLORIDE 113 mmol/L (98-107)
[2019-10-28 05:58] LABS: CREATININE 1.86 mg/dL (0.7-1.3)
[2019-10-28 06:24] LABS: BASOPHILS # (AUTO) 0.08 x10^3/uL (0-0.1); BASOPHILS % (AUTO) 1 % (0-1); EOSINOPHILS # (AUTO) 0.34 x10^3/uL (0-0.4); EOSINOPHILS % (AUTO) 5 % (1-7); LYMPHOCYTES # (AUTO) 2.08 x10^3/uL (1-3.4); LYMPHOCYTES % (AUTO) 32 % (22-44); MD NO; MEAN CORPUSCULAR HGB CONC 32.5 g/dL (33.2-36.2); MEAN CORPUSCULAR VOLUME 95.4 fL (81-97); MEAN PLATELET VOLUME 8.7 fL (7.4-10.4); MONOCYTES # (AUTO) 0.56 x10^3/uL (0.2-0.8); MONOCYTES % (AUTO) 9 % (2-9); NEUTROPHILS # (AUTO) 3.54 x10^3/uL (1.8-6.8); NEUTROPHILS % (AUTO) 54 % (42-75); PLATELET COUNT 197 x10^3/uL (130-400); RED BLOOD COUNT 4.08 x10^6/uL (4.38-5.82); RED CELL DISTRIBUTION WIDTH 15.1 % (9.4-14.8)
[2019-10-28] MEDS: INSULIN LISPRO 100 UNITS/ML, PEN SQ-INSULIN SCH ×4 (07:00→20:39)
[2019-10-28 07:27] LABS: TROPONIN I < 0.015 ng/mL (0.000-0.045)
[2019-10-28] MEDS: HEPARIN 5,000 UNITS/ML, 1ML SQ SCH ×4 (08:00→23:35)
[2019-10-28] MEDS: ASPIRIN 81 MG TABLET EC PO SCH (09:00)
[2019-10-28] MEDS: REPAGLINIDE 1 MG TABLET PO SCH ×2 (09:00→20:32)
[2019-10-28] MEDS ORDERED: INSULIN GLARGINE 100 UNITS/ML, PEN SQ-INSULIN SCH (09:00)
[2019-10-28] MEDS ORDERED: AMIODARONE 200 MG TABLET PO SCH (09:00)
[2019-10-28] MEDS: ALLOPURINOL 300 MG TABLET PO SCH (10:29)
[2019-10-28] MEDS: CARVEDILOL 12.5 MG TABLET PO SCH ×2 (10:30→20:32)
[2019-10-28] MEDS: LEVOTHYROXINE 200 MCG TABLET PO SCH (10:30)
[2019-10-28] MEDS: SERTRALINE 100MG TABLET PO SCH (10:31)
[2019-10-28] MEDS: SODIUM CHLORIDE FLUSH 10ML SYR IVF SCH ×2 (10:32→20:32)
[2019-10-28] MEDS ORDERED: AMIODARONE 150 MG in DEXTROSE 5% 100 ML IV ONE (15:30)
[2019-10-28] MEDS ORDERED: FILTER 0.22 MICRON IV ONE (15:30)
[2019-10-28] MEDS: GABAPENTIN 300 MG CAPSULE PO SCH (20:32)
[2019-10-28] MEDS: ATORVASTATIN 40 MG TABLET PO SCH (20:32)
[2019-10-28] MEDS: FINASTERIDE 5 MG TABLET PO SCH (20:32)
[2019-10-28] MEDS: INSULIN GLARGINE 100 UNITS/ML, PEN SQ-INSULIN SCH (20:40)
[2019-10-28] MEDS ORDERED: INSULIN GLARGINE 100 UNITS/ML, PEN SQ-INSULIN ONE (21:00)
[2019-10-29 02:39] VITALS: BP 116/68
[2019-10-29 05:13] LABS: ANION GAP 4 mmol/L (5-15); CALCIUM 8.4 mg/dL (8.5-10.1); CHLORIDE 110 mmol/L (98-107); CREATININE 1.72 mg/dL (0.7-1.3)
[2019-10-29] MEDS ORDERED: MAGNESIUM SULFATE/D5W 100 ML IV ONE (06:30)
[2019-10-29 06:51] VITALS: BP 111/67
[2019-10-29] MEDS: INSULIN LISPRO 100 UNITS/ML, PEN SQ-INSULIN SCH ×3 (07:00→17:31)
[2019-10-29] MEDS: HEPARIN 5,000 UNITS/ML, 1ML SQ SCH ×2 (08:00→16:00)
[2019-10-29] MEDS ORDERED: AMIODARONE 200 MG TABLET PO SCH (09:00)
[2019-10-29] MEDS: ASPIRIN 81 MG TABLET EC PO SCH (09:00)
[2019-10-29] MEDS: REPAGLINIDE 1 MG TABLET PO SCH (09:09)
[2019-10-29] MEDS: ALLOPURINOL 300 MG TABLET PO SCH (09:10)
[2019-10-29] MEDS: CARVEDILOL 12.5 MG TABLET PO SCH (09:10)
[2019-10-29] MEDS: SERTRALINE 100MG TABLET PO SCH (09:10)
[2019-10-29] MEDS: INSULIN GLARGINE 100 UNITS/ML, PEN SQ-INSULIN SCH (09:10)
[2019-10-29] MEDS: SODIUM CHLORIDE FLUSH 10ML SYR IVF SCH (09:11)
[2019-10-29] MEDS: LEVOTHYROXINE 200 MCG TABLET PO SCH (09:53)
[2019-10-29 12:31] VITALS: BP 135/78
[2019-10-29 16:49] LABS: MICROSCOPIC AUTO
[2019-10-29] MEDS ORDERED: AMIO200T42 PO (16:53)
[2019-10-29 17:13] LABS: CALCIUM 8.8 mg/dL (8.5-10.1)
== END 2019-10-29 18:40 | disposition home or self-care (01) ==
LOC: ED 10:40 → INTOOBSV 14:21 → EDIP 14:21 → 5SO 17:16
PROVIDERS: ADMIT Internal Medicine; ATTEND Internal Medicine
DX: R55 Syncope and collapse (principal); I65.23 Occlusion and stenosis of bilateral carotid arteries; I13.0 Hypertensive heart and chronic kidney disease with heart failure and stage 1 through stage 4 chronic kidney disease, or unspecified chronic kidney disease; N18.4 Chronic kidney disease, stage 4 (severe); E03.9 Hypothyroidism, unspecified; M10.9 Gout, unspecified; N40.0 Benign prostatic hyperplasia without lower urinary tract symptoms; E11.22 Type 2 diabetes mellitus with diabetic chronic kidney disease; F39 Unspecified mood [affective] disorder; I50.32 Chronic diastolic (congestive) heart failure; I42.9 Cardiomyopathy, unspecified; J44.9 Chronic obstructive pulmonary disease, unspecified; A49.02 Methicillin resistant Staphylococcus aureus infection, unspecified site; E78.5 Hyperlipidemia, unspecified; I48.0 Paroxysmal atrial fibrillation; I47.2 Ventricular tachycardia; I25.2 Old myocardial infarction
CPT/HCPCS: 36415; 70450; 71045; 72125; 80048; 81001; 82040; 82306; 82310; 82570; 82962; 83735; 83970; 84100; 84156; 84443; 84484; 84550; 85025; 93005; 96365; 96366; 96372; 96375; 97162; 97166; 99284; G0378; J0282; J1815

== ENCOUNTER 2019-12-03 09:51 | Emergency (ER) | payer MEDICARE, OTHER ==
[~2019-12-03] VITALS: Ht 188 cm; Wt 132.0 kg
[~2019-12-03 09:51] MED LIST changes: +CARV12.5 PO
[2019-12-03 10:00] VITALS: BP 139/65
[2019-12-03 10:45] LABS: RAPID INFLUENZA A Negative (Negative); RAPID INFLUENZA B Negative (Negative)
[2019-12-03 10:53] LABS: BASOPHILS # (AUTO) 0.04 x10^3/uL (0-0.1); BASOPHILS % (AUTO) 1 % (0-1); EOSINOPHILS # (AUTO) 0.43 x10^3/uL (0-0.4); EOSINOPHILS % (AUTO) 5 % (1-7); LYMPHOCYTES # (AUTO) 1.33 x10^3/uL (1-3.4); LYMPHOCYTES % (AUTO) 17 % (22-44); MD NO; MEAN CORPUSCULAR HEMOGLOBIN 30.9 pg (27.5-34.5); MEAN CORPUSCULAR HGB CONC 32.8 g/dL (33.2-36.2); MEAN CORPUSCULAR VOLUME 94.2 fL (81-97); MEAN PLATELET VOLUME 8.9 fL (7.4-10.4); MONOCYTES % (AUTO) 8 % (2-9); NEUTROPHILS # (AUTO) 5.64 x10^3/uL (1.8-6.8); NEUTROPHILS % (AUTO) 70 % (42-75); PLATELET COUNT 202 x10^3/uL (130-400); RED BLOOD COUNT 3.39 x10^6/uL (4.38-5.82); RED CELL DISTRIBUTION WIDTH 14.2 % (9.4-14.8)
[2019-12-03 11:03] LABS: INTERNATIONAL NORMALIZED RATIO 0.94 (0.93-1.1)
[2019-12-03 11:09] LABS: ALBUMIN 2.7 g/dL (3.4-5.0); ANION GAP 7 mmol/L (5-15); CALCIUM 8.1 mg/dL (8.5-10.1); CHLORIDE 112 mmol/L (98-107); CREATININE 1.96 mg/dL (0.7-1.3)
[2019-12-03 11:13] LABS: ALKALINE PHOSPHATASE 115 U/L (45-117); BILIRUBIN,TOTAL 0.3 mg/dL (0.2-1.0); TOTAL PROTEIN 6.5 g/dL (6.4-8.2); TROPONIN I 0.027 ng/mL (0.000-0.045)
[2019-12-03 11:17] LABS: ALANINE AMINOTRANSFERASE 20 U/L (12-78)
--- NOTE | 2019-12-03 11:59 | NUR ---
PT INFORMED OF HIS TEST FOR HOANG VIRUS, AND THE NEED TO SELF QUARANTINE UPON RETURNING HOME. PT PHONE NUMBER CORRECT IN DEMOGRAPHIC TAB FOR FOLLOW UP. PT DENIES ANY FURTHER NEEDS AT THIS TIME. PREPARING FOR DISCHARGE.
== END 2019-12-03 12:40 | disposition home or self-care (01) ==
LOC: ED 10:30
DX: J22 Unspecified acute lower respiratory infection (principal); Z20.828 Contact with and (suspected) exposure to other viral communicable diseases; J44.9 Chronic obstructive pulmonary disease, unspecified; I11.0 Hypertensive heart disease with heart failure; I50.9 Heart failure, unspecified; I25.810 Atherosclerosis of coronary artery bypass graft(s) without angina pectoris; I25.2 Old myocardial infarction; E78.5 Hyperlipidemia, unspecified; I48.91 Unspecified atrial fibrillation; E11.40 Type 2 diabetes mellitus with diabetic neuropathy, unspecified; R94.31 Abnormal electrocardiogram [ECG] [EKG]; Z95.0 Presence of cardiac pacemaker
CPT/HCPCS: 36415; 71045; 80053; 83605; 83880; 84484; 85025; 85610; 87081; 87400; 87486; 87581; 87633; 87798; 87880; 93005; 99285

== ENCOUNTER 2020-04-18 14:07 | Inpatient (IN) | payer MEDICARE, OTHER ==
[~2020-04-18] VITALS: Ht 188 cm; Wt 139.6 kg
[~2020-04-18 14:07] MED LIST changes: -WARF5TAB PO; +WARF5TAB2 PO
[2020-04-18 14:48] LABS: BASOPHILS # (AUTO) 0.02 x10^3/uL (0-0.1); BASOPHILS % (AUTO) 0 % (0-1); EOSINOPHILS # (AUTO) 0.49 x10^3/uL (0-0.4); EOSINOPHILS % (AUTO) 7 % (1-7); LYMPHOCYTES # (AUTO) 1.04 x10^3/uL (1-3.4); LYMPHOCYTES % (AUTO) 16 % (22-44); MD NO; MEAN CORPUSCULAR HEMOGLOBIN 29.8 pg (27.5-34.5); MEAN CORPUSCULAR HGB CONC 32.9 g/dL (33.2-36.2); MEAN PLATELET VOLUME 8.4 fL (7.4-10.4); MONOCYTES % (AUTO) 7 % (2-9); NEUTROPHILS # (AUTO) 4.64 x10^3/uL (1.8-6.8); NEUTROPHILS % (AUTO) 69 % (42-75); PLATELET COUNT 198 x10^3/uL (130-400); RED BLOOD COUNT 3.88 x10^6/uL (4.38-5.82); RED CELL DISTRIBUTION WIDTH 16.7 % (9.4-14.8)
--- NOTE | 2020-04-18 15:00 | NUR ---
PT OXYGEN AT LOW 80s WHEN HE FELL ASLEEP. PT PLACED ON 2L OXYGEN VIA NC. PT HX SLEEP APNEA.
[2020-04-18 15:02] LABS: CALCIUM 8.6 mg/dL (8.5-10.1); CHLORIDE 109 mmol/L (98-107)
[2020-04-18 15:10] LABS: ALANINE AMINOTRANSFERASE 14 U/L (12-78); ALKALINE PHOSPHATASE 99 U/L (45-117); ANION GAP 9 mmol/L (5-15); BILIRUBIN,TOTAL 0.6 mg/dL (0.2-1.0); TOTAL PROTEIN 6.6 g/dL (6.4-8.2); TROPONIN I 0.024 ng/mL (0.000-0.045)
[2020-04-18] MEDS ORDERED: AMIO100T4 PO (15:34)
[2020-04-18] MEDS ORDERED: INSU100V8 SQ (15:34)
[2020-04-18] MEDS ORDERED: CARV25TA12 PO (15:34)
--- NOTE | 2020-04-18 16:10 | NUR ---
PT AT CT
--- NOTE | 2020-04-18 16:31 | NUR ---
ALL RESULTS ARE BACK AT THIS TIME. CHART UP FOR RECHECK.
--- NOTE | 2020-04-18 17:37 | NUR ---
[facility] HOSPITALIST AT BEDSIDE.
[2020-04-18] MEDS ORDERED: morphine SULFATE 10 MG/ML, 1ML IVPush PRN (18:00)
[2020-04-18] MEDS ORDERED: NITROGLYCERIN 0.4 MG/SPRAY SL PRN (18:00)
[2020-04-18] MEDS ORDERED: NITROGLYCERIN 0.4 MG BOTTLE (25 TABS) SL PRN (18:00)
[2020-04-18] MEDS ORDERED: DOCUSATE 100 MG CAPSULE PO PRN (18:00)
--- NOTE | 2020-04-18 18:44 | NUR ---
LUNCH BREAK NOTE: PT ADJUSTED IN BED AND GIVEN PERSONAL BELONGINGS SO PT COULD READ PER HIS REQUEST.
--- NOTE | 2020-04-18 19:43 | NUR ---
REPORT GIVEN TO JOSELIN MATOS.
[2020-04-18 20:23] VITALS: BP 143/72
[2020-04-18] MEDS ORDERED: PLEASE ENTER HEIGHT AND WEIGHT MC SCH ×2 (20:30)
[2020-04-18] MEDS ORDERED: TEMAZEPAM 7.5 MG PO SCH (21:00)
[2020-04-18] MEDS: ATORVASTATIN 40 MG TABLET PO SCH (22:22)
[2020-04-18] MEDS: TICAGRELOR 90 MG TABLET PO SCH (22:22)
[2020-04-18] MEDS: GABAPENTIN 300 MG CAPSULE PO SCH (22:22)
[2020-04-18] MEDS: MULTIVITS,STRESS FORMULA 1 TABLET PO SCH (22:22)
[2020-04-18] MEDS: CHOLECALCIFEROL 1,000 UNIT TABLET PO SCH (22:22)
[2020-04-18] MEDS: ENOXAPARIN 40 MG/0.4 ML SQ SCH (22:23)
[2020-04-18] MEDS ORDERED: OXYcodone/APAP 5/325MG TABLET PO PRN (23:00)
[2020-04-18] MEDS: AMIODARONE 200 MG TABLET PO SCH (23:20)
[2020-04-18] MEDS: INSULIN GLARGINE 100 UNITS/ML, PEN SQ-INSULIN SCH (23:21)
[2020-04-18] MEDS: FINASTERIDE 5 MG TABLET PO SCH (23:21)
[2020-04-19 00:18] LABS: TROPONIN I < 0.015 ng/mL (0.000-0.045)
[2020-04-19 01:01] VITALS: BP 172/66
[2020-04-19 05:59] LABS: BASOPHILS # (AUTO) 0.07 x10^3/uL (0-0.1); BASOPHILS % (AUTO) 1 % (0-1); EOSINOPHILS # (AUTO) 0.54 x10^3/uL (0-0.4); EOSINOPHILS % (AUTO) 9 % (1-7); LYMPHOCYTES # (AUTO) 1.43 x10^3/uL (1-3.4); LYMPHOCYTES % (AUTO) 25 % (22-44); MD NO; MEAN CORPUSCULAR HEMOGLOBIN 29.5 pg (27.5-34.5); MEAN CORPUSCULAR HGB CONC 32.3 g/dL (33.2-36.2); MEAN PLATELET VOLUME 8.3 fL (7.4-10.4); MONOCYTES # (AUTO) 0.64 x10^3/uL (0.2-0.8); MONOCYTES % (AUTO) 11 % (2-9); NEUTROPHILS # (AUTO) 3.12 x10^3/uL (1.8-6.8); NEUTROPHILS % (AUTO) 54 % (42-75); PLATELET COUNT 181 x10^3/uL (130-400); RED BLOOD COUNT 3.97 x10^6/uL (4.38-5.82); RED CELL DISTRIBUTION WIDTH 17.1 % (9.4-14.8)
[2020-04-19 06:08] LABS: ANION GAP 7 mmol/L (5-15); CALCIUM 8.7 mg/dL (8.5-10.1); CHLORIDE 110 mmol/L (98-107)
[2020-04-19 06:14] LABS: CREATININE 1.59 mg/dL (0.7-1.3)
[2020-04-19] MEDS: LEVOTHYROXINE 150 MCG TABLET PO SCH (06:17)
[2020-04-19] MEDS: INSULIN GLARGINE 100 UNITS/ML, PEN SQ-INSULIN SCH ×3 (08:00→18:10)
[2020-04-19] MEDS ORDERED: CARVEDILOL 25 MG TABLET PO SCH (08:00)
[2020-04-19] MEDS ORDERED: TOPIRAMATE 25 MG TABLET PO SCH (09:00)
[2020-04-19 09:10] VITALS: BP 136/71
[2020-04-19] MEDS: OMEGA-3/FISH OIL CAPSULE PO SCH (09:51)
[2020-04-19] MEDS: ALLOPURINOL 300 MG TABLET PO SCH (09:51)
[2020-04-19] MEDS: TICAGRELOR 90 MG TABLET PO SCH ×2 (09:51→21:39)
[2020-04-19] MEDS: ASPIRIN 81 MG TABLET EC PO SCH (09:51)
[2020-04-19] MEDS: AMIODARONE 200 MG TABLET PO SCH ×2 (09:52→18:09)
[2020-04-19] MEDS: ACETAMINOPHEN 325 MG TABLET PO PRN (13:20)
[2020-04-19] MEDS ORDERED: LIDODERM 5% PATCH TD SCH (13:30)
[2020-04-19 13:33] VITALS: BP 88/59
[2020-04-19 14:42] LABS: TROPONIN I 0.017 ng/mL (0.000-0.045)
[2020-04-19 16:30] VITALS: BP 147/70
[2020-04-19] MEDS ORDERED: MULTIVITAMINS/MINERALS TABLET PO SCH (21:00)
[2020-04-19 21:34] VITALS: BP 161/76
[2020-04-19] MEDS: ENOXAPARIN 40 MG/0.4 ML SQ SCH (21:39)
[2020-04-19] MEDS: CHOLECALCIFEROL 1,000 UNIT TABLET PO SCH (21:39)
[2020-04-19] MEDS: ATORVASTATIN 40 MG TABLET PO SCH (21:39)
[2020-04-19] MEDS: FINASTERIDE 5 MG TABLET PO SCH (21:39)
[2020-04-19] MEDS: MULTIVITS,STRESS FORMULA 1 TABLET PO SCH (21:40)
[2020-04-19] MEDS: GABAPENTIN 300 MG CAPSULE PO SCH (21:40)
[2020-04-20] MEDS: ACETAMINOPHEN 325 MG TABLET PO PRN (00:21)
[2020-04-20 00:27] VITALS: BP 173/79
[2020-04-20] MEDS ORDERED: ENALAPRILAT 1.25 MG/ML, 2ML IV PRN ×2 (01:00→03:00)
[2020-04-20] MEDS ORDERED: TOPIRAMATE 25 MG TABLET PO SCH (01:00)
[2020-04-20] MEDS ORDERED: ENALAPRILAT 1.25 MG/ML, 1ML ONE (01:17)
[2020-04-20 01:21] VITALS: BP 189/91
[2020-04-20 01:59] VITALS: BP 170/76
[2020-04-20] MEDS ORDERED: LIDODERM REMOVE PATCH NOTE XX SCH (02:00)
[2020-04-20] MEDS ORDERED: MORPHINE SULFATE 4 MG/ML, 1ML IVPush PRN (05:00)
[2020-04-20] MEDS: LEVOTHYROXINE 150 MCG TABLET PO SCH (05:19)
[2020-04-20 07:54] VITALS: BP 149/76
[2020-04-20] MEDS ORDERED: CARVEDILOL 25 MG TABLET PO SCH ×2 (08:00→12:00)
[2020-04-20] MEDS ORDERED: AMLODIPINE 10 MG TAB PO SCH (09:00)
[2020-04-20] MEDS: AMIODARONE 200 MG TABLET PO SCH (09:18)
[2020-04-20] MEDS: TICAGRELOR 90 MG TABLET PO SCH (09:18)
[2020-04-20] MEDS: OMEGA-3/FISH OIL CAPSULE PO SCH (09:19)
[2020-04-20] MEDS: ALLOPURINOL 300 MG TABLET PO SCH (09:19)
[2020-04-20] MEDS: ASPIRIN 81 MG TABLET EC PO SCH (09:19)
[2020-04-20] MEDS: INSULIN GLARGINE 100 UNITS/ML, PEN SQ-INSULIN SCH ×2 (09:45→13:16)
[2020-04-20 16:11] VITALS: BP 110/67
== END 2020-04-20 18:19 | disposition home or self-care (01) | DRG 303 ==
LOC: ED 14:45 → EDIP 17:05 → 5SO 20:05
PROVIDERS: ADMIT Family Medicine; ATTEND Family Medicine
DX: I25.119 Atherosclerotic heart disease of native coronary artery with unspecified angina pectoris (principal); I42.9 Cardiomyopathy, unspecified; I50.9 Heart failure, unspecified; F17.210 Nicotine dependence, cigarettes, uncomplicated; G47.33 Obstructive sleep apnea (adult) (pediatric); J44.9 Chronic obstructive pulmonary disease, unspecified; I48.91 Unspecified atrial fibrillation; I87.8 Other specified disorders of veins; M10.9 Gout, unspecified; K21.9 Gastro-esophageal reflux disease without esophagitis; E86.0 Dehydration; N40.0 Benign prostatic hyperplasia without lower urinary tract symptoms; D64.9 Anemia, unspecified; E11.9 Type 2 diabetes mellitus without complications; E89.0 Postprocedural hypothyroidism; F32.9 Major depressive disorder, single episode, unspecified; I11.0 Hypertensive heart disease with heart failure; I25.2 Old myocardial infarction; Z95.1 Presence of aortocoronary bypass graft; Z82.49 Family history of ischemic heart disease and other diseases of the circulatory system; Z79.4 Long term (current) use of insulin; Z79.82 Long term (current) use of aspirin; Z79.899 Other long term (current) drug therapy
CPT/HCPCS: 36415; 70450; 71045; 72192; 80048; 80053; 82962; 83690; 84484; 85025; 93005; 99285; G0378; J1650; J1815; J2270